=== PATIENT | male | born 1955 | race Caucasian/White ===

== ENCOUNTER 2020-09-02 08:00 | Outpatient (RCR) | payer MEDICARE, SELFPAY | END 2020-09-04 15:00 | disposition home or self-care (01) | LOC: PT.CARL 08:00 | PROVIDERS: Visit Provider Orthopaedic Surgery Adult Reconstructive Orthopaedic Surgery | DX: S52.125A Nondisplaced fracture of head of left radius, initial encounter for closed fracture (principal) | CPT/HCPCS: 97110; 97140; 97163 ==

== ENCOUNTER → 2023-07-06 16:44 | Outpatient (CLI) | payer MEDICARE, SELFPAY ==
[2023-07-06 16:40] LABS: Basophils # 0.1 K/mm3 (0-0.2); Basophils % 1.6 % (0.1-2.0); Eosinophils # 0.2 K/mm3 (0.0-0.4); Eosinophils % 3.2 % (0.1-12.0); Hematocrit 47.7 % (42.0-52.0); Hemoglobin 16.6 g/dL (14.1-18.0); Lymphocytes # 1.7 K/mm3 (0.7-4.5); Mean Corpuscular HGB Conc 34.8 g/dL (31.8-35.4); Mean Corpuscular Hemoglobin 33.1 pg (27.0-31.2); Mean Corpuscular Volume 94.9 fl (80-94); Mean Platelet Volume 9.5 fl (7.4-10.4); Monocytes # 0.6 K/mm3 (0.1-1.0); Monocytes % 8.5 % (1.7-9.3); Neutrophils # 4.4 K/mm3 (1.8-7.8); Neutrophils % 62.7 % (37.0-80.0); Platelet Count 299 K/mm3 (142-424); Red Blood Count 5.02 M/mm3 (4.60-6.20); Red Cell Distribution Width 13.4 % (11.5-17.5); White Blood Count 7.1 K/mm3 (4.8-10.8)
[2023-07-06 17:06] LABS: Alanine Aminotransferase 55 U/L (12-78); Albumin Level 4.4 g/dl (3.5-5.0); Albumin/Globulin Ratio 1.3 (1.1-1.8); Alkaline Phosphatase 84 U/L (38-126); Anion Gap 16.8 mEq/L (5-15); Aspartate Amino Transferase 54 U/L (17-59); Blood Urea Nitrogen 14 mg/dl (9-20); Calcium 9.3 mg/dl (8.4-10.2); Carbon Dioxide 25 mmol/L (22.0-30.0); Chloride 101 mmol/L (98-107); Chol/HDL Ratio 6.9 (1-3.5); Cholesterol 214 mg/dl (140-200); Estimated Glomerular Filt Rate 75 ml/min (>60); GFR (African American) 90 ML/MIN (>60); Globulin 3.3 g/dL (1.3-3.2); Glucose 115 mg/dl (74-100); HDL Cholesterol 31 mg/dl (40-60); Potassium 3.8 mmoL/L (3.5-5.1); Sodium 139 mmol/L (136-145); Total Protein,Serum 7.7 g/dl (6.3-8.2); Triglycerides 227 mg/dl (30-150); VLDL Cholesterol 45 mg/dL (0-40)
[2023-07-06 17:17] LABS: Direct LDL Cholesterol 138.61 mg/dL (100-129)
[2023-07-06 17:58] LABS: Hemoglobin A1C 6.2 % (4.0-6.0)
== END ==
PROVIDERS: PCP Family Medicine; Visit Provider Family Medicine
DX: I10 Essential (primary) hypertension (principal); E11.9 Type 2 diabetes mellitus without complications
CPT/HCPCS: 80053; 80061; 83036; 85025

== ENCOUNTER 2023-07-12 08:00 | Outpatient (RCR) | payer MEDICARE, SELFPAY ==
--- NOTE | 2023-06-13 09:03 | HMH.PTOPEV ---
PT Outpatient Evaluation Rehab PT Outpatient Evaluation Start: 06/13/23 08:02 Freq: Status: Active Protocol: Document 06/13/23 08:02 [email or web address] (Rec: 06/13/23 09:03 [email or web address] [id number]) E-signed By Rodriguez De Paz, PT Outpatient Therapy Subjective History Subjective History Pt. is a 67 year old male who presents to [facility] Outpatient Physical Therapy Services in [place] for the initial evaluation this date(06/13/23) w/ c/o acute and costant R- sided hip/RLE P!, burning, and weakness of insidious onset a week ago. Pt. reports, I just woke up and it was there. Pt. notes decreased active RLE DF secondary to muscle weakness w/ osnet of current c /o symptoms. Pt. reports having a history of generalized BLE muscle weakness since falling a few years ago, however, states symptoms have worsened w/ recent onset. Pt. reports symptoms worsen w/ prolonged standing and ambulation, reports having to take a chair to sit down to allow for symptom relief. Pt. reports, I bend over the shopping cart when I got to the grocery store secondary to symptom relief. Pt. denies having any symptom relief w/ prescribed mx. Recent diagnostic imaging indicates degenerative changes in the lumbar spine per pt. report. Pt. denies recent onset numbness/tingling into the LLE, denies saddle paresthesia, deneis any recent bowel/bladder dysfunction at this time. Current medications include Duloxetine, Leflunomide, Losartan, Pantoprazole, Tramadol PRN, Pregabalin, and Trazodone. PMH includes S/P Cholecystectomy, S/P LLE TKA, S/P RLE
== END 2023-07-18 15:22 | disposition home or self-care (01) ==
LOC: PT 08:00
PROVIDERS: PCP Family Medicine; Visit Provider Nurse Practitioner Family
DX: M54.30 Sciatica, unspecified side (principal); M54.31 Sciatica, right side
CPT/HCPCS: 97010; 97012; 97014; 97110; 97140; 97163; G0283

== ENCOUNTER 2023-10-06 19:22 | Outpatient (CLI) | payer MEDICARE, SELFPAY ==
[2023-10-06 16:49] LABS: Basophils # 0.1 K/mm3 (0-0.2); Basophils % 0.9 % (0.1-2.0); Eosinophils # 0.4 K/mm3 (0.0-0.4); Eosinophils % 5.6 % (0.1-12.0); Hematocrit 48.4 % (42.0-52.0); Hemoglobin 16.6 g/dL (14.1-18.0); Lymphocytes # 1.9 K/mm3 (0.7-4.5); Lymphocytes % 29.4 % (10-50); Mean Corpuscular HGB Conc 34.2 g/dL (31.8-35.4); Mean Corpuscular Hemoglobin 32.7 pg (27.0-31.2); Mean Corpuscular Volume 95.7 fl (80-94); Mean Platelet Volume 9.3 fl (7.4-10.4); Monocytes # 0.7 K/mm3 (0.1-1.0); Monocytes % 10.3 % (1.7-9.3); Neutrophils # 3.5 K/mm3 (1.8-7.8); Neutrophils % 53.9 % (37.0-80.0); Platelet Count 309 K/mm3 (142-424); Red Blood Count 5.06 M/mm3 (4.60-6.20); Red Cell Distribution Width 13.9 % (11.5-17.5); White Blood Count 6.6 K/mm3 (4.8-10.8)
[2023-10-06 16:57] LABS: Alanine Aminotransferase 73 U/L (12-78); Albumin Level 4.2 g/dl (3.5-5.0); Albumin/Globulin Ratio 1.3 (1.1-1.8); Alkaline Phosphatase 113 U/L (38-126); Anion Gap 11.9 mEq/L (5-15); Aspartate Amino Transferase 57 U/L (17-59); Blood Urea Nitrogen 13 mg/dl (9-20); Calcium 9.7 mg/dl (8.4-10.2); Carbon Dioxide 26 mmol/L (22.0-30.0); Chloride 105 mmol/L (98-107); Chol/HDL Ratio 7.7 (1-3.5); Cholesterol 255 mg/dl (140-200); Estimated Glomerular Filt Rate 75 ml/min (>60); GFR (African American) 90 ML/MIN (>60); Globulin 3.3 g/dL (1.3-3.2); Glucose 119 mg/dl (74-100); HDL Cholesterol 33 mg/dl (40-60); Potassium 3.9 mmoL/L (3.5-5.1); Sodium 139 mmol/L (136-145); Total Protein,Serum 7.5 g/dl (6.3-8.2); Triglycerides 256 mg/dl (30-150); VLDL Cholesterol 51 mg/dL (0-40)
[2023-10-06 17:08] LABS: Direct LDL Cholesterol 159.79 mg/dL (100-129)
[2023-10-06 17:27] LABS: Prostate Specific Ag Screen 0.2 ng/ml (0.0-4.0); Thyroid Stimulating Hormone 3.28 uIU/mL (0.465-4.68)
[2023-10-06 18:53] LABS: Hemoglobin A1C 6.1 % (4.0-6.0)
== END 2023-10-06 23:59 ==
LOC: LAB.DROPOF 19:23
PROVIDERS: PCP Family Medicine; Visit Provider Family Medicine
DX: Z12.5 Encounter for screening for malignant neoplasm of prostate (principal); I10 Essential (primary) hypertension; R73.03 Prediabetes; Z79.899 Other long term (current) drug therapy
CPT/HCPCS: 80053; 80061; 83036; 84436; 84443; 85025; G0103

== ENCOUNTER 2023-12-05 16:17 | Outpatient (CLI) | payer MEDICARE, SELFPAY ==
--- NOTE | 2023-12-05 16:18 | MR_ITS ---
FINAL REPORT CLINICAL HISTORY: low back pain. BILATERAL LEG PAIN, NUMBNESS AND TINGLING. NO INJURY OR TRAUMA FINDINGS: Multiplanar MR imaging of the lumbar spine was performed without contrast. On the sagittal T2-weighted images, there is abnormal decreased signal throughout the lumbar discs. The vertebrae are of normal height. There is minimal spondylolisthesis of L5 on S1. L1-2: Mild annular disc bulge is present with mild bilateral neural foraminal narrowing. L2-3: Mild annular disc bulge is present with mild bilateral neural foraminal narrowing. L3-4: Mild to moderate annular disc bulge is present. There is mild facet hypertrophy with mild to moderate bilateral neural foraminal narrowing. L4-5: Mild to moderate annular disc bulge is present. There is bilateral facet hypertrophy. There is moderate to high-grade left and moderate right neural foraminal narrowing. L5-S1: Diffuse disc bulge is present accentuated by spondylolisthesis. There is high-grade right and moderate left neural foraminal narrowing. IMPRESSION: Multilevel degenerative disc disease with neural foraminal compromise, most evident on the left at L4-5 and on the right at L5-S1. Reviewed, Interpreted and Dictated by Ramon Ryan MD Transcribed by Liza Martin Authenticated and [facility]
== END 2023-12-05 23:59 | disposition home or self-care (01) ==
LOC: RAD 16:18
PROVIDERS: PCP Family Medicine; Visit Provider Family Medicine
DX: M54.50 Low back pain, unspecified (principal); G62.9 Polyneuropathy, unspecified
CPT/HCPCS: 72148; 76376

== ENCOUNTER 2024-01-09 08:00 | Outpatient (RCR) | payer MEDICARE, SELFPAY ==
--- NOTE | 2023-12-12 08:48 | HMH.PTOPEV ---
PT Outpatient Evaluation Rehab PT Outpatient Evaluation Start: 12/12/23 07:58 Freq: Status: Active Protocol: Document 12/12/23 07:58 ROBIN (Rec: 12/12/23 08:48 [email or web address] [id number]) E-signed By Rodriguez De Paz, PT Outpatient Therapy Subjective History Subjective History Pt. is a 68 year old male who presents to [facility] Outpatient Physical Therapy Services in [place] for the initial evaluation this date(12/12/23) w/ c/o chronic and constant BLE(R>L) feet and leg P!, numbness, and burning of insidious onset 6 years ago. Pt. reports initial onset of BLE numbness and weakness 6 years ago of insidious onset while working at [employer]. Pt. reports his BLEs would go numb and give out from underneath him and couldn 't walk. However, pt. reports this would last a few days and then go away. Pt. reports having this onset every year of insidious onset, but state symptoms would improve in a few day. Recent diagnostic imaging positive for multi- level disc bulges per pt. report. Pt. denies having injections for current complaint. Pt. reports not having symptom relief w/ Prednisone. Current medications include Duloxetine, Leflunomide, Losartan, Pantoprazole, Tramadol PRN, Pregabalin, Hydroxyzine HCL, Nabumentone, and Trazodone. PMH includes S/ P Cholecystectomy, S/P LLE TKA , S/P RLE Bunionectomy, HTN, DVT, OA, Gout, and mild acid reflux. [ End ] New diagnosis of cancer in past 12 No months? Chief Complaint Pain,Stiff,Swelling,Gives out/ Unstable,Paresthesia,Weakness Symptom Type Ache,Throb,Dull,Burning, Numbness,Shooting Symptoms Relieved By Rest/Positioning,Brace/Support Symptoms Aggravated By Standing,Bending/Stooping, Walking,Lifting Prior Functional Limitations None Current Functional Limitations Lifting,Standing,Recreation Activity,Walking,Bending/ Stooping Symptom Description Constant but Variable, Intermittent,Activity Dependent Level of pain today (0-10) 5 Pain scale - at its best (0-10) 0 Pain scale - at its worst (0-10) 10 Lumbopelvic Eval Posture Thoracic Spine Posture Standing Position Neutral Lumbar Spine Posture Standing Position Neutral Assistive device Assistive Devices None / NA Gait Observation General Gait Pattern Observation No Deviations/Normal Palapation tenderness bilateral lumbar spinal tenderness Yes: L4/L5/S1 paraspinal tenderness No buttock tenderness No Lumbar/Sacral Palpation Overall Comment grade 3 +TTP to assessment above Accessory Movement L-spine Vertebrae Accessory Movements Central P/A [place],Right P/A that Elicit Symptoms Ke[place] L4 right L5 right S1 right Range of Motion Lumbar Spine Active Flexion Range of 75 Motion (degrees) Lumbar Spine Active Extension Range of 14 Motion (degrees) Left Lumbar Spine Lateral Flexion Active 24 Range of Motion (degrees) Right Lumbar Spine Lateral Flexion 14 Active Range of Motion (degrees) Lumbar Spine ROM Limitations Soft Tissue Tightness,Pain Manual Muscle Test Left Knee Extension Strength Grade 4 Good Knee Flexion Strength Grade 4 Good Hip Flexion Strength Grade 4 Good Hip Abduction Strength Grade 4 Good Hip Adduction Strength Grade 4 Good Hip External Rotation Strength Grade 4 Good Hip Internal Rotation Strength Grade 4 Good Hip Extension Strength Grade 4 Good Gluteus Pablo Strength Grade 4 Good Extensor Hallucis Longus Strength Grade 4 Good Ankle Dorsiflexion Strength Grade 4 Good Gastronemius/Soleus Strength Grade 4 Good Right Knee Extension Strength Grade 4 Good Knee Flexion Strength Grade 4- Good- Hip Flexion Strength Grade 4 Good Hip Abduction Strength Grade 4 Good Hip Adduction Strength Grade 4 Good Hip External Rotation Strength Grade 4 Good Hip Internal Rotation Strength Grade 4 Good Hip Extension Strength Grade 4 Good Gluteus Pablo Strength Grade 4 Good Extensor Hallucis Longus Strength Grade 3+ Fair+ Ankle Dorsiflexion Strength Grade 3+ Fair+ Gastronemius/Soleus Strength Grade 4 Good DTR Rt Patellar 2+ Lt Patellar 2+ Rt Gastroc/Soleus 0 Lt Gastroc/Soleus 0 Altered Sensation Right LE Dermatome Level L1,L5,S1 Comment decreased light touch sensation in above patterns of RLE compared to LLE Special Tests Lumbar Spine Screen Positive Sciatic Nerve Tension Test Positive Right Hip 90-90 Straight Leg Raise Test Positive Right Lumbar Long [place] Distraction Test/Manual Positive Traction Outpatient Therapy Assessment Impairments Problems/Impairmments Palpation Tenderness,Impaired Range of Motion,Impaired Strength,Impaired Walking, Impaired Standing,Impaired Lifting,Impaired Household Care,Impaired Incline Stepping ,Impaired Stepping on Uneven Surface,Impaired Recreational Activities,Impaired Work Activities,Increased Edema, Subjective C/O Pain,Impaired Self Care/Self Management Prognosis Rehab Potential Good Comment w/ HEP compliancy Clinical Impression Consistent with Diagnosis Yes Consistent with Lumbar Radiculopathy, R>L Short Term Goals Number of Weeks 2 Decreased Palpation Tenderness Yes: grade 1-2 +TTP to TTP assessment above Decrease Subjective C/O Pain Yes: worse:12/29 Patient to be Ind w/ HEP Yes Financial Data Analyst Goals Number of Weeks 4-6 Decreased Palpation Tenderness Yes: grade 1 +TTP to TTP assessment above Increase Range of Motion Yes: lumbar AROM WFL grossly Increase Strength Yes: 4+ to 5/5 RLE ankle/ft. myotomal muscle strength Increase Ability to Walk Yes Increase Ability to Stand Yes Improve Ability For Household Care Yes: improved ability w/ sweeping/mopping floor Improve Incline Stepping Ability Yes Improve Ability to Step on Uneven Yes Surfaces Improve Oswestry Score Yes Decrease Subjective C/O Pain Yes: worse:-10/29 Improve Self Care/Self Management Yes Patient to be Ind w/ Advanced HEP Yes Outpatient Therapy Plan of Care Treatment Plan May Include Therapeutic Exercise Including Home Yes Exercise Program Manual Therapy Techniques Yes Neuromuscular Re-education Yes Therapeutic Activities to Return to Yes Previous Functional/Work Level ADL/Self Care Education Yes Mechanical Traction Yes Dry Needling Yes Thermal Modalities Yes Electrical Stimulation Yes Ultrasound/Phonophoresis Yes Iontophoresis Yes Vasopneumatic Compression Pump Yes Massage Yes Eval/Re-Eval Yes Frequency Times per week 2 Duration Number of Weeks 4-6 Addendums This patient is a candidate for social No or vocational rehab? Patient/Guardian verbally acknowledges Yes understanding of treatment program and consents to further treatment? Patient/Guardian verbally acknowledges Yes understanding of diagnosis, prognosis and goals for treatment? Eval Complexity PT Charges 20796 - Low Complexity Shoulder/Elbow Eval Shoulder Objective Measurements Elbow Objective Measurements PHYSICIAN CERTIFICATION: I certify the specified therapy services for Giovanny Dumont are required, authorized, and reviewed every 30 days.
== END 2024-01-10 18:00 | disposition home or self-care (01) ==
LOC: PT 08:00
PROVIDERS: Visit Provider Family Medicine
DX: M54.50 Low back pain, unspecified (principal); G62.9 Polyneuropathy, unspecified
CPT/HCPCS: 97010; 97012; 97014; 97110; 97140; 97163; G0283

== ENCOUNTER 2024-08-01 08:00 | Outpatient (RCR) | payer MEDICARE, SELFPAY ==
--- NOTE | 2024-06-28 11:51 | HMH.PTOPWND ---
Rehab Outpt Wound Evaluation Rehab OP Wound Evaluation Start: 06/28/24 07:51 Freq: Status: Active Protocol: Document 06/28/24 11:40 LATISHA (Rec: 06/28/24 11:51 [email or web address] [id number]) E-signed By Tico Carrillo, PT Subjective/History History History This is the initial PT eval for Giovanny Dumont, 68 yowm who presents with c/o B lower leg edema increased for ~ 4 yrs overall. He reports edema is significantly worse at the end of the day and decreased in the am after sleeping with his legs elevated. He reports pain is increased with B lower legs also worse with increased edema. He has hx of DVT in B LE, R bunionectomy, L TKA, HTN, CCY. He also reports a general and sudden onset of weakness throughout his body beginning at the same time. Subjective Subjective Pain currently 5/10 in B lower legs, at worst it is 9/10. B LE neuropathy from the ankle distally tested with 19g monofilament. 2+ pitting edema to B lower legs. Minimal erythema noted to B lower legs . 2/4 TTP in B LE gaiter areas . New diagnosis of cancer in past 12 No months? Lymphedema Eval Classification of Lymphedema Secondary Lymphedema Yes Stemmer's sign Stemmer's Sign yes Stage of Lymphedema Lymphedema stages Stage I (Pitting edema, reduces w/ elevation, no fibrosis) Skin Changes Dry Skin Yes Redness Yes Discoloration of Skin Yes Other Changes Yes Pain Scale Pain Scale (0-10) 9 Affected Extremities Areas Affected by Lymphedema/Edema Right Lower Extremity,Left Lower Extremity Lower Extremity Measurements Right MTP Measurement (cm) 26.6 Heel Measurement (cm) 38.5 10 cm Proximal to Lateral Malleoli 31.9 Measurement (cm) 20 cm Proximal to Lateral Malleoli 41.2 Measurement (cm) 30 cm Proximal to Lateral Malleoli 47.7 Measurement (cm) 40 cm Proximal to Lateral Malleoli 45.9 Measurement (cm) 50 cm Proximal to Lateral Malleoli 0 Measurement (cm) 60 cm Proximal to Lateral Malleoli 0 Measurement (cm) Lower Extremity Measurement Total (cm) 231.8 Left MTP Measurement (cm) 26.5 Heel Measurement (cm) 37.6 10 cm Proximal to Lateral Malleoli 31.2 Measurement (cm) 20 cm Proximal to Lateral Malleoli 38.8 Measurement (cm) 30 cm Proximal to Lateral Malleoli 47.0 Measurement (cm) 40 cm Proximal to Lateral Malleoli 44.8 Measurement (cm) 50 cm Proximal to Lateral Malleoli 0 Measurement (cm) 60 cm Proximal to Lateral Malleoli 0 Measurement (cm) Lower Extremity Measurement Total (cm) 225.9 Manual Lymphatic Drainage Treatment Area MLD Treatment Area Right Lower Extremity,Left Lower Extremity Wound Problems/Impairments Impairments Problems/Impairmments Palpation Tenderness,Increased Edema,Lymphedema Present, Subjective C/O Pain,Impaired Self Care/Self Management Prognosis Rehab Potential Good Comment Skilled therapy is indicated to reduce overall edema burden and return pt to PLOF. Clinical Impression Consistent with Diagnosis Yes Short Term Goals Number of Weeks 2 Decreased Palpation Tenderness Yes: 1/4 B lower legs Decrease Edema Yes: 1+ pitting edema to B lower legs Decrease Subjective C/O Pain Yes: 7/10 at worst B lower legs Patient to Understand Lymphedema Yes Treatment and Exercises Decrease Girth Measurments by (cm) Yes: B LE total by 5 cm ea Prison Goals Number of Weeks 4 Decreased Palpation Tenderness Yes: 0/4 B lower legs Decrease Edema Yes: no pitting edema to B lower legs Decrease Subjective C/O Pain Yes: 4/10 at worst B lower legs Patient to be Ind w/ HEP Yes Patient to be Ind w/ [place] Yes Compression Garments Patient to Adhere Lymphedema Precautions Yes Decrease Girth Measurments by (cm) Yes: B LE total by 15 cm ea Outpatient Therapy Plan of Care Treatment Plan May Include Therapeutic Exercise Including Home Yes Exercise Program Manual Therapy Techniques Yes Neuromuscular Re-education Yes Therapeutic Activities to Return to Yes Previous Functional/Work Level ADL/Self Care Education Yes Orthotics/Bracing/Splinting Yes Vasopneumatic Compression Pump Yes Manual Lymphatic Drainage Yes Eval/Re-Eval Yes Frequency Times per week 2 Duration Number of Weeks 4 Addendums This patient is a candidate for social No or vocational rehab? Patient/Guardian verbally acknowledges Yes understanding of treatment program and consents to further treatment? Patient/Guardian verbally acknowledges Yes understanding of diagnosis, prognosis and goals for treatment? Eval Complexity PT Charges 51507 - High Complexity PHYSICIAN CERTIFICATION: I certify the specified therapy services for Giovanny Dumont are required, authorized, and reviewed every 30 days.
--- NOTE | 2024-07-24 09:05 | HMH.RHREAS ---
Rehab Reassessment Rehab OP Re-assessment Start: 06/28/24 07:51 Freq: Status: Active Protocol: Document 07/24/24 09:00 LATISHA (Rec: 07/24/24 09:04 LATISHA [id number]) E-signed By Tico Carrillo, PT Rehab Re-assessment Subjective Subjective Pt reports 6/10 pain in B Lower Legs at worst. He states , I feel really good after I come here for treatment for a day or two, but it gets a little worse after that. He just received his compression garments for home use. Objective Objective Notes Circumferential Measurements: R LE total is 225.3 cm which is -6.5 cm since IE. L LE total is 217.6 cm which is -8.3 cm since IE. Edema: 1+ pitting edema to B lower legs Pain: at worst is 6/10 in B lower legs. TTP: 1/4 B lower legs. Assessment Progress Assessment Progressing as Expected Assessment Notes Pt has shown significant reduction of overall edema based on circumferential measurements as noted. He does continue to have pitting edema and pain. Skilled therapy remains indicate to reduce overall edema burden to return pt to PLOF. Patient goals met ST/5 LT/7 Plan Plan Continue per initial POC. Frequency of Therapy 1-2 x/wk Duration of therapy 3-4 wks Time and Billing Re-Eval Time 10 Re-Eval Billing Units 0 Charge for PT reassessment? No PHYSICIAN CERTIFICATION: I certify the specified therapy services for Giovanny Dumont are required, authorized, and reviewed every 30 days.
== END 2024-08-01 23:59 | disposition home or self-care (01) ==
LOC: PT 08:00
PROVIDERS: Visit Provider Family Medicine
DX: R60.0 Localized edema (principal)
CPT/HCPCS: 97140; 97163

== ENCOUNTER 2024-09-26 09:54 | Outpatient (CLI) | payer MEDICARE, SELFPAY ==
--- NOTE | 2024-09-26 09:57 | XR_ITS ---
FINAL REPORT CLINICAL HISTORY: low back pain numbness, right sided radiates to hip FINDINGS: LUMBAR SPINE Three views were obtained. There is no acute fracture. There is grade 1 spondylolisthesis of L5 on S1 with moderate vascular disc phenomenon at this level. There is mild to advanced facet hypertrophy in the lower lumbar spine with probable underlying pars defect of L5. There are mild hypertrophic changes at L1-2 and L3-4. IMPRESSION: Mild level degenerative changes as above. Reviewed, Interpreted and Dictated by Ramon Ryan MD Transcribed by Liza Martin Authenticated and [facility]
[2024-09-26 16:15] LABS: Basophils # 0.2 K/mm3 (0-0.2); Basophils % 2.1 % (0.1-2.0); Eosinophils # 0.3 K/mm3 (0.0-0.4); Eosinophils % 4.2 % (0.1-12.0); Hematocrit 43.9 % (42.0-52.0); Hemoglobin 14.7 g/dL (14.1-18.0); Lymphocytes # 2.1 K/mm3 (0.7-4.5); Mean Corpuscular HGB Conc 33.5 g/dL (31.8-35.4); Mean Corpuscular Hemoglobin 33.1 pg (27.0-31.2); Mean Corpuscular Volume 98.9 fl (80-94); Mean Platelet Volume 10.8 fl (7.4-10.4); Monocytes # 0.9 K/mm3 (0.1-1.0); Monocytes % 10.8 % (1.7-9.3); Neutrophils # 4.5 K/mm3 (1.8-7.8); Neutrophils % 55.1 % (37.0-80.0); Platelet Count 309 K/mm3 (142-424); Red Blood Count 4.44 M/mm3 (4.60-6.20); Red Cell Distribution Width 13.7 % (11.5-17.5); White Blood Count 8.2 K/mm3 (4.8-10.8)
[2024-09-26 16:53] LABS: Alanine Aminotransferase 45 U/L (12-78); Albumin Level 4.7 g/dl (3.5-5.0); Albumin/Globulin Ratio 1.5 (1.1-1.8); Alkaline Phosphatase 103 U/L (38-126); Anion Gap 16.5 mEq/L (5-15); Aspartate Amino Transferase 41 U/L (17-59); Bilirubin,Total 0.8 mg/dl (0.2-1.3); Blood Urea Nitrogen 25 mg/dl (9-20); Calcium 9.5 mg/dl (8.4-10.2); Carbon Dioxide 23 mmol/L (22.0-30.0); Chloride 105 mmol/L (98-107); Estimated Glomerular Filt Rate 67 ml/min (>60); GFR (African American) 81 ML/MIN (>60); Globulin 3.1 g/dL (1.3-3.2); Glucose 113 mg/dl (74-100); Potassium 4.5 mmoL/L (3.5-5.1); Sodium 140 mmol/L (136-145); Total Protein,Serum 7.8 g/dl (6.3-8.2)
== END 2024-09-26 23:59 | disposition home or self-care (01) ==
LOC: RAD 09:55
PROVIDERS: PCP Family Medicine; Visit Provider Family Medicine
DX: M54.50 Low back pain, unspecified (principal); R60.9 Edema, unspecified
CPT/HCPCS: 72100; 80053; 85025

== ENCOUNTER 2024-12-28 09:42 | Outpatient (CLI) | payer MEDICARE, SELFPAY ==
[2024-12-28 10:34] LABS: Erythrocyte Sedimentation Rate 27 mm/hr (0-20)
[2024-12-28 10:36] LABS: Creatine Kinase 135 U/L (55-170)
[2024-12-28 11:26] LABS: Vitamin B12 613 pg/mL (239-931)
[2024-12-28 11:45] LABS: Folate > 20.00 ng/mL
[2024-12-28 12:12] LABS: Hemoglobin A1C 5.8 % (4.0-6.0)
[2024-12-31 14:17] LABS: Aldolase 6.5 U/L (3.3-10.3); Anti-Centromere B Antibodies <0.2 AI (0.0-0.9); Anti-DNA (DS) Ab Qn 3 IU/mL (0-9); Anti-Jo-1 <0.2 AI (0.0-0.9); Anti-Smith Antibody <0.2 AI (0.0-0.9); Antichromatin Antibodies 1.1 AI (0.0-0.9); Antiscleroderma-70 Antibodies <0.2 AI (0.0-0.9); RNP Antibodies 0.2 AI (0.0-0.9); Sjogren's Anti-SS-A <0.2 AI (0.0-0.9); Sjogren's Anti-SS-B <0.2 AI (0.0-0.9)
[2025-01-08 10:23] LABS: AChR Binding Abs 0.56 nmol/L (0.00-0.24); AChR Blocking Abs 20 % (0-25); AChR Modulating Ab 12 % (0-45)
== END 2024-12-28 23:59 | disposition home or self-care (01) ==
LOC: LAB 09:42
PROVIDERS: PCP Family Medicine; Visit Provider Specialist
DX: M62.81 Muscle weakness (generalized) (principal); M79.604 Pain in right leg; M79.605 Pain in left leg; G47.33 Obstructive sleep apnea (adult) (pediatric); R20.0 Anesthesia of skin; G62.9 Polyneuropathy, unspecified; R73.03 Prediabetes
CPT/HCPCS: 36415; 82085; 82550; 82607; 82746; 83036; 83519; 85651; 86225; 86235; 86255

== ENCOUNTER 2025-01-01 08:12 | Outpatient (CLI) | payer MEDICARE, SELFPAY ==
--- OUTSIDE RECORDS SUMMARY | 2025-01-01 08:15 | XMS_ITS | Data Portability ---
Author Organization [place] - [facility] - [facility] ADMIN Address [address] [place] [id number] Assessment Encounter Date Assessment Date Assessment LastModified by Organization Details LastModified Time 05/31/2022 05/31/2022 The patient presents to the clinic today 2 weeks s/p an left ankle injection reporting short-term benefit of 1 week. The patient continues to complain of Bilateral Foot pain with numbness/tingling sensations associated with peripheral neuropathy. Because the patients pain is not well controlled with taking Gabapentin at the current regimen, I will increase the dose today from 800 mg TID to 600 mg 2 tablets three times a day for 3 months. The patient will return to the office in 3 months for a medication refill. MEDICATION: Increase Gabapentin 600 mg take 2 tablets TID for 1 month #180, 2 refills [email or web address] Not available 06/01/2022 07:23:27 08/25/2022 08/25/2022 Telehealth visit is being conducted from [address] [place] [address]. This was a real-time clinical encounter over [[email or web address] ]. Consent was obtained to engage in telemedicine service. Greater than 50% of the time spent was devoted to counseling and coordinating care including review of records, pertinent lab data and studies as well as discussing diagnostic evaluation and workup, plan therapeutic interventions and future disposition of care. This included any additional research needed to obtain further information in formulating the plan of care for this patient. This includes counseling with the patient about their disease and diagnosis, specifically as below. Patient was also counseled on the precaution of COVID-19 including importance of hand washing and social distancing. WE SPECIFICALLY DISCUSSED RISK FACTORS FOR COVID-19, INCLUDING AGE>60, HEART OR LUNG DISEASE, DIABETES, IMMUNOSUPPRESSION, AND TRAVEL. WE ALSO DISCUSSED THAT NSAIDS MAY WORSEN COVID-19 INFECTION SYMPTOMS AND THAT THEY SHOULD NOT BE USED TO TREAT COVID-19 SYMPTOMS. PATIENT WAS ALSO INFORMED THAT CORTICOSTEROIDS IN ANY FORM (ORAL OR INJECTABLE) WILL DECREASE IMMUNE RESPONSE AND MAY INCREASE RISK OF COVID-19 INFECTION AND SYMPTOMS. THIS ENCOUNTER WAS PERFORMED A TELEMEDICINE VISIT VIA SECURE TWO-WAY VIDEO AND AUDIO TO MINIMIZE RISK AND TRANSMISSION OF COVID-19. THE PATIENT AND WE UNDERSTAND THE LIMITATIONS OF A TELEMEDICINE VISIT INCLUDING INABILITY TO CHECK REFLEXES, POSSIBLY MISSING SUBTLE FINDINGS ON PHYSICAL EXAM. ALTERNATIVE OPTIONS WERE PRESENTED TO THE PATIENT AND THE PATIENT ELECTED TO PROCEED WITH THE VISIT. The patient presents via televideo for medication refill. As the current medication is managing pain and well-tolerated, allowing him to remain functional, I will continue. Medication refill will not be conducted today as the patient has recently picked up medication on 08/23 with an additional refill at the pharmacy when needed. The patient continues to complain of bilateral foot pain with numbness/tingling sensations, likely associated with peripheral neuropathy, as evidenced by history and physical exam. To address the patient's pain: I believe the patient would be a good candidate for SCS therapy to manage his chronic neuropathic pain. The patient's pain has been refractory to physical therapy, medication regimen, and injections. I will discuss SCS therapy at follow up with the patient in person. - No medication refill today as patient has medication available until 10/19 - Possible SCS candidate - will discuss at follow up - Follow up in 2 months for medication refill and to discuss treatment plan [email or web address] Not available 08/25/2022 15:54:24 10/11/2022 10/11/2022 The patient presents to the clinic today for a medication refill. Of note, the patient recently stopped Gabapentin, as he was uncertain regarding efficacy. The patient denies withdrawal symptoms. The patient continues to complain of multiple joint pain likely associated with osteoarthritis and gout, as evidenced by history and physical exam. The patient is following with rheumatology, whom is prescribing oral steroids. The patient would like to hold off on interventional treatment, as rheumatology is investigating etiology/mechanism of disease. The patient also complains of numbness/tingling of the BLE. Based on the history and physical exam it appears that the pain is associated with neuropathy. I think the patient may be a good candidate for neuromodulation, specifically SCS therapy, as their pain has been refractory to conservative, pharmacologic, and interventional approaches. I will follow up in 6-8 weeks to discuss the treatment plan. [email or web address] Not available 10/14/2022 12:44:53 Plan of Treatment Reminders Order Date Submit Date Provider Last Modified By Organization Details Last Modified Time Details Appointments None recorded. Lab unlisted lab - systemic lupus profile A 2021 [facility], [address], [address], [place], [address], 12:10:07 unlisted lab - systemic lupus profile B 2021 [facility], [address], [address], [place], [address], 12:10:08 JANESSA (antinucle ar antibodies ) screen, serum 2021 [email or web address], [address], [address], [place], [address], 08:52:27 lipid panel, serum 2021 [facility], [address], [place], [address], 03:06:31 TSH, ultra-sens itive, serum 2021 [facility], [address], [place], [address], 03:06:32 vitamin B12 + folate, serum or blood 2021 [facility], [address], [place], [address], 03:06:32 HbA1c (hemoglobi n A1c), blood 2021 [facility], [address], [place], [address], 2 03:06:32 CBC w/ auto diff 2021 [facility], [address], [address], [place], [address], 2 03:06:30 CMP, serum or plasma 2021 [facility], [address], [address], [place], [address], 2 03:06:31 C reactive protein, QN, serum or plasma 2021 [facility], [address], [address], [place], [address], 03:06:35 ESR (erythrocy te sedimentat ion rate), blood 2021 [facility], [address], [address], [place], [address], 2 03:06:35 JANESSA (antinucle ar antibodies ) screen, serum 2021 [facility], [address], [address], [place], [address], 03:06:34 rf (rheumatoi d factor) iga, serum 2021 [facility], [address], [address], [place], [address], 2 03:06:34 uric acid, serum or plasma 2021 [facility], [address], [address], [place], [address], 03:06:34 ccp (cyclic citrullina calin peptide) iga+igg, serum 2021 [facility], [address] [facility] [address], [place], [address], 03:06:33 Referral None recorded. Procedures None recorded. Surgeries None recorded. [email or web address] [address], [place], [address], 11:10:19 Medication Orders neomycin-p olymyxin-h ydrocort 3.5 mg-10,000 unit/mL-1 % ear drops,susp 2021 [id number], [address], [place], [place], [id number], 2 08:16:50 amoxicilli n 875 mg-potassi um clavulanat e 125 mg tablet 2021 [facility], [address], [place], [place], [id number], 2 08:16:51 triamcinol one acetonide 0.1 % topical cream 2021 [facility] #49414, [address] [place], [place], [id number], 2 08:16:51 gabapentin 600 mg tablet 2021 [facility]73, [address] [place], [place], [id number], 14:47:53 Patient TargetsNo targets recorded. Patient InstructionsNo instructions recorded. Reason for Referral None Reported. Results Created Date Observation Date Name Description Value Unit Range Abnormal Flag Note LastModifiedBy Organization Detail LastModifiedTime 06/02/2006/03/2022 CBC WITH DIFFE RENTI AL/PL ATELE T WBC 9.4 x10e3 /uL 3.4-10 .8 Not Available [facility] ([facility]) [address] [facility] [address], [place], [address], 06/14/2022 03:06:30 06/02/20 22 06/03/2022 CBC WITH DIFFE RENTI AL/PL ATELE T RBC 4.57 x10e6 /uL 4.14-5 .80 Not Available [facility] ([facility]) [address] [facility] [address], [place], [address], 06/14/2022 03:06:30 06/02/2006/03/2022 CBC WITH DIFFE RENTI AL/PL ATELE T hemoglobin 14.9 g/dL 13.0-1 7.7 Not Available [facility] ([facility]) [address] [facility], [place], [address], 06/14/2022 03:06:30 06/02/2006/03/2022 CBC WITH DIFFE RENTI AL/PL ATELE T hematocrit 43.4 % 37.5-5 1.0 Not Available [facility] ([facility]) [address] [facility], [place], [address], 06/14/2022 03:06:30 06/02/2006/03/2022 CBC WITH DIFFE RENTI AL/PL ATELE T MCV 95 fL 79-97 Not Available [facility] ([facility]) [address] [place], [address], 06/14/2022 03:06:30 06/02/2006/03/2022 CBC WITH DIFFE RENTI AL/PL ATELE T MCH 32.6 pg 26.6-3 3.0 Not Available [facility] ([facility]) [address] [place], [address], 06/14/2022 03:06:30 06/02/2006/03/2022 CBC WITH DIFFE RENTI AL/PL ATELE T MCHC 34.3 g/dL 31.5-3 5.7 Not Available [facility] ([facility]) [address] [facility], [place], [address], 06/14/2022 03:06:30 06/02/20 22 06/03/2022 CBC WITH DIFFE RENTI AL/PL ATELE T RDW 13.0 % 11.6-1 5.4 Not Available [facility] ([facility]) [address] [facility], [place], [address], 06/14/2022 03:06:30 06/02/2006/03/2022 CBC WITH DIFFE RENTI AL/PL ATELE T platelets 308 x10e3 /uL 150-45 0 Not Available [facility] ([facility]) [address] [facility], [place], [address], 06/14/2022 03:06:30 06/02/20 22 06/03/2022 CBC WITH DIFFE RENTI AL/PL ATELE T neutrophils 59 % not estab. Not Available [facility] ([facility]) [address] [facility], [place], [address], 06/14/2022 03:06:30 06/02/20 22 06/03/2022 CBC WITH DIFFE RENTI AL/PL ATELE T lymphs 23 % not estab. Not Available [facility] ([facility]) [address] [facility], [place], [address], 06/14/2022 03:06:30 06/02/20 22 06/03/2022 CBC WITH DIFFE RENTI AL/PL ATELE T monocytes 11 % not estab. Not Available [facility] ([facility]) [address] [facility], [place], [address], 06/14/2022 03:06:30 06/02/20 22 06/03/2022 CBC WITH DIFFE RENTI AL/PL ATELE T eos 4 % not estab. Not Available [facility] ([facility]) [address] [facility], [place], [address], 06/14/2022 03:06:30 06/02/20 22 06/03/2022 CBC WITH DIFFE RENTI AL/PL ATELE T basos 1 % not estab. Not Available [facility] ([facility]) [address] [facility], [place], [address], 06/14/2022 03:06:30 06/02/20 22 06/03/2022 CBC WITH DIFFE RENTI AL/PL ATELE T immature cells PUBLIC MESSAGE SERVICE SUPERVISOR Not Available [facility] ([facility]) [address] [place], [address], 06/14/2022 03:06:30 06/02/20 22 06/03/2022 CBC WITH DIFFE RENTI AL/PL ATELE T neutrophils (absolute) 5.6 x10e3 /uL 1.4-7. 0 Not Available [facility] ([facility]) [address] [place], [address], 06/14/2022 03:06:30 06/02/20 22 06/03/2022 CBC WITH DIFFE RENTI AL/PL ATELE T lymphs (absolute) 2.2 x10e3 /uL 0.7-3. 1 Not Available [facility] ([facility]) [address] [place], [address], 06/14/2022 03:06:30 06/02/20 22 06/03/2022 CBC WITH DIFFE RENTI AL/PL ATELE T monocytes(ab solute) 1.0 x10e3 /uL 0.1-0. 9 above high normal Not Available [facility] ([facility]) [address] [place], [address], 06/14/2022 03:06:30 06/02/20 22 06/03/2022 CBC WITH DIFFE RENTI AL/PL ATELE T eos (absolute) 0.4 x10e3 /uL 0.0-0. 4 Not Available [facility] ([facility]) [address] [facility], [place], [address], 06/14/2022 03:06:30 06/02/20 22 06/03/2022 CBC WITH DIFFE RENTI AL/PL ATELE T baso (absolute) 0.1 x10e3 /uL 0.0-0. 2 Not Available [facility] ([facility]) [address] [facility], [place], [address], 06/14/2022 03:06:30 06/02/2006/03/2022 CBC WITH DIFFE RENTI AL/PL ATELE T immature granulocytes 2 % not estab. Not Available [facility] ([facility]) [address] [facility], [place], [address], 06/14/2022 03:06:30 06/02/2006/03/2022 CBC WITH DIFFE RENTI AL/PL ATELE T immature grans (abs) 0.2 x10e3 /uL 0.0-0. 1 above high normal (An eleva calin perce ntage of Immat ure Granu locyt es has not been found to be clini ravi signi fican t as a sole clini frankie predi ctor of disea se. Does NOT inclu de bands or blast cells . Pregn ayana assoc iated physi ologi frankie leuko cytos is may also show incre ased immat ure granu locyt es witho ut clini frankie signi fican ce.) Not Available [facility] ([facility]) [address] [facility] [address], [place], [address], 06/14/2022 03:06:30 06/02/2006/03/2022 CBC WITH DIFFE RENTI AL/PL ATELE T NRBC PUBLIC MESSAGE SERVICE SUPERVISOR Not Available [facility] ([facility]) [address] [facility], [place], [address], 06/14/2022 03:06:30 06/02/20 22 06/03/2022 CBC WITH DIFFE AYANNA AL/PL ATELE T hematology comments: PUBLIC MESSAGE SERVICE SUPERVISOR Not Available [facility] ([facility]) [address] [facility], [place], [address], 06/14/2022 03:06:30 06/02/20 22 06/03/2022 COMP. METAB OLIC PANEL (14) glucose 108 mg/dL 70-99 above high normal Ple ase note refer ence inter job ring e Not Available [facility] ([facility]) [address] [facility] [address], [place], [address], 06/14/2022 03:06:31 06/02/2006/03/2022 COMP. METAB OLIC PANEL (14) BUN 20 mg/dL 8-27 Not Available [facility] ([facility]) [address] [facility], [place], [address], 06/14/2022 03:06:31 06/02/20 22 06/03/2022 COMP. METAB OLIC PANEL (14) creatinine 1.39 mg/dL 0.76-1 .27 above high normal Not Available [facility] ([facility]) [address] [facility], [place], [address], 06/14/2022 03:06:31 06/02/20 22 06/03/2022 COMP. METAB OLIC PANEL (14) eGFR 56 mL/mi n/1.7 3 >59 below low normal Not Available [facility] ([facility]) [address] [facility], [place], [address], 06/14/2022 03:06:31 06/02/20 22 06/03/2022 COMP. METAB OLIC PANEL (14) BUN/creatini ne ratio 14 06-14 Not Available [facility] ([facility]) [address] [facility], [place], [address], 06/14/2022 03:06:31 06/02/20 22 06/03/2022 COMP. METAB OLIC PANEL (14) sodium 141 mmol/ L 134-14 4 Not Available [facility] ([facility]) [address] [facility] [place], [address], 06/14/2022 03:06:31 06/02/20 22 06/03/2022 COMP. METAB OLIC PANEL (14) potassium 4.0 mmol/ L 3.5-5. 2 Not Available [facility] ([facility]) [address] [facility] [place], [address], 06/14/2022 03:06:31 06/02/20 22 06/03/2022 COMP. METAB OLIC PANEL (14) chloride 103 mmol/ L 96-106 Not Available [facility] ([facility]) [address] [facility], [place], [address], 06/14/2022 03:06:31 06/02/20 22 06/03/2022 COMP. METAB OLIC PANEL (14) carbon dioxide, total 22 mmol/ L 20-29 Not Available [facility] ([facility]) [address] [facility] [address], [place], [address], 06/14/2022 03:06:31 06/02/20 22 06/03/2022 COMP. METAB OLIC PANEL (14) calcium 9.5 mg/dL 8.6-10 .2 Not Available [facility] ([facility]) [address] [facility] [place], [address], 06/14/2022 03:06:31 06/02/20 22 06/03/2022 COMP. METAB OLIC PANEL (14) protein, total 7.1 g/dL 6.0-8. 5 Not Available [facility] ([facility]) [address] [facility] [place], [address], 06/14/2022 03:06:31 06/02/20 22 06/03/2022 COMP. METAB OLIC PANEL (14) albumin 4.3 g/dL 3.8-4. 8 Not Available [facility] ([facility]) [address] [facility] [address], [place], [address], 06/14/2022 03:06:31 06/02/20 22 06/03/2022 COMP. METAB OLIC PANEL (14) globulin, total 2.8 g/dL 1.5-4. 5 Not Available [facility] ([facility]) [address] [facility] [address], [place], [address], 06/14/2022 03:06:31 06/02/20 22 06/03/2022 COMP. METAB OLIC PANEL (14) A/G ratio 1.5 1.2-2. 2 Not Available [facility] ([facility]) [address] [facility], [place], [address], 06/14/2022 03:06:31 06/02/20 22 06/03/2022 COMP. METAB OLIC PANEL (14) bilirubin, total 0.4 mg/dL 0.0-1. 2 Not Available [facility] ([facility]) [address] [facility], [place], [address], 06/14/2022 03:06:31 06/02/20 22 06/03/2022 COMP. METAB OLIC PANEL (14) alkaline phosphatase 87 IU/L 44-121 Not Available [facility]) [address] [facility], [place], [address], 06/14/2022 03:06:31 06/02/20 22 06/03/2022 COMP. METAB OLIC PANEL (14) AST (SGOT) 27 IU/L 0-40 Not Available [facility] ([facility]) [address] [facility], [place], [address], 06/14/2022 03:06:31 06/02/20 22 06/03/2022 COMP. METAB OLIC PANEL (14) ALT (SGPT) 34 IU/L 0-44 Not Available [facility] ([facility]) [address] [facility], [place], [address], 06/14/2022 03:06:31 06/02/20 22 06/03/2022 LIPID PANEL WITH LDL/H DL RATIO cholesterol, total 149 mg/dL 100-19 9 Not Available [facility] ([facility]) [address] [facility] [address], [place], [address], 06/14/2022 03:06:31 06/02/20 22 06/03/2022 LIPID PANEL WITH LDL/H DL RATIO triglyceride s 224 mg/dL 0-149 above high normal Not Available [facility] ([facility]) [address] [facility], [place], [address], 06/14/2022 03:06:31 06/02/20 22 06/03/2022 LIPID PANEL WITH LDL/H DL RATIO HDL cholesterol 37 mg/dL >39 below low normal Not Available [facility] ([facility]) [address] [place], [address], 06/14/2022 03:06:31 06/02/20 22 06/03/2022 LIPID PANEL WITH LDL/H DL RATIO VLDL cholesterol frankie 37 mg/dL 5-40 Not Available [facility] ([facility]) [address] [facility] [address], [place], [address], 06/14/2022 03:06:31 06/02/20 22 06/03/2022 LIPID PANEL WITH LDL/H DL RATIO LDL chol calc ([facility]) 75 mg/dL 0-99 Not Available [facility] ([facility]) [address] [facility] [address], [place], [address], 06/14/2022 03:06:31 06/02/20 22 06/03/2022 LIPID PANEL WITH LDL/H DL RATIO comment: PUBLIC MESSAGE SERVICE SUPERVISOR Not Available [facility] ([facility]) [address] [facility], [place], [address], 06/14/2022 03:06:31 06/02/20 22 06/03/2022 LIPID PANEL WITH LDL/H DL RATIO LDL/HDL ratio 2.0 ratio 0.0-3. 6 LDL/H DL Ratio Men Women 1/2 Avg.R isk 1.0 1.5 Avg.R isk 3.6 3.2 2X Avg.R isk 6.2 5.0 3X Avg.R isk 8.0 6.1 Not Available [facility] ([facility]) [address] [place], [address], 06/14/2022 03:06:31 06/02/20 22 06/03/2022 VITAM IN B12 AND FOLAT E vitamin B12 593 pg/mL 232-12 45 Not Available [facility] ([facility]) [address] [place], [address], 06/14/2022 03:06:32 06/02/2006/03/2022 VITAM IN B12 AND FOLAT E folate (folic acid), serum 8.5 NG/mL >3.0 A serum folat e patricia ntrat ion of less than 3.1 ng/mL is consi dered to repre sent clini frankie defic iency . Not Available [facility] ([facility]) [address] [place], [address], 06/14/2022 03:06:32 06/02/2006/03/2022 HEMOG LOBIN A1C hemoglobin A1C 6.4 % 4.8-5. 6 above high normal Predi abete s: 5.7 - 6.4 Diabe macario: >6.4 Glyce aj contr ol for adult s with diabe macario: <7.0 Not Available [facility] ([facility]) [address] [place], [address], 06/14/2022 03:06:32 06/02/2006/03/2022 TSH TSH 1.850 uIU/m L 0.450- 4.500 Not Available [facility] ([facility]) [address] [place], [address], 06/14/2022 03:06:32 06/02/2006/03/2022 ANTI- CCP AB, IGG/I GA anti-ccp Ab, IgG/IgA 10 units 0-19 Negat nessa <20 Weak posit nessa 20 - 39 Moder ate posit nessa 40 - 59 Stron g posit nessa >59 Not Available [facility] ([facility]) [address] [place], [address], 06/14/2022 03:06:33 06/02/2006/13/2022 RF, IGA BY EIA (RDL) rf, IgA by EIA (rdl) <7 U <7 Not Available [facility] [address], [place], [address], 06/14/2022 03:06:34 06/02/2006/03/2022 URIC ACID uric acid 9.1 mg/dL 3.8-8. 4 above high normal Gerard medina t for gout patie nts: <6.0 Not Available [facility] ([facility]) [address] [facility] [address], [place], [address], 06/14/2022 03:06:34 06/02/2006/03/2022 JANESSA W/REF NAHUM IF POSIT NESSA JANESSA direct Positi ve negati ve abnormal Not Available [facility] ([facility]) [address] [place], [address], 06/14/2022 03:06:34 06/02/2006/03/2022 JANESSA W/REF NAHUM IF POSIT NESSA anti-DNA (ds) Ab qn 4 IU/mL 0-9 Negat nessa <5 Equiv ocal 5 - 9 Posit nessa >9 Not Available [facility] ([facility]) [address] [place], [address], 06/14/2022 03:06:34 06/02/20 22 06/03/2022 JANESSA W/REF NAHUM IF POSIT NESSA outside plant field engineer antibodies <0.2 ai 0.0-0. 9 Not Available [facility] ([facility]) [address] [facility] [address], [place], [address], 06/14/2022 03:06:34 06/02/20 22 06/03/2022 JANESSA W/REF NAHUM IF POSIT NESSA silva antibodies <0.2 ai 0.0-0. 9 Not Available [facility] ([facility]) [address] [facility] [address], [place], [address], 06/14/2022 03:06:34 06/02/20 22 06/03/2022 JANESSA W/REF NAHUM IF POSIT NESSA antisclerode rma-70 antibodies <0.2 ai 0.0-0. 9 Not Available [facility] ([facility]) [address] [facility], [place], [address], 06/14/2022 03:06:34 06/02/20 22 06/03/2022 JANESSA W/REF NAHUM IF POSIT NESSA sjogren's anti-ss-A <0.2 ai 0.0-0. 9 Not Available [facility] ([facility]) [address] [place], [address], 06/14/2022 03:06:34 06/02/20 22 06/03/2022 JANESSA W/REF NAHUM IF POSIT NESSA sjogren's anti-ss-B <0.2 ai 0.0-0. 9 Not Available [facility] ([facility]) [address] [place], [address], 06/14/2022 03:06:34 06/02/20 22 06/03/2022 JANESSA W/REF NAHUM IF POSIT NESSA antichromati n antibodies 2.0 ai 0.0-0. 9 above high normal Not Available [facility] ([facility]) [address] [place], [address], 06/14/2022 03:06:34 06/02/20 22 06/03/2022 JANESSA W/REF NAHUM IF POSIT NESSA anti-jasmin-1 <0.2 ai 0.0-0. 9 Not Available [facility] ([facility]) [address] [facility] [address], [place], [address], 06/14/2022 03:06:34 06/02/20 22 06/03/2022 JANESSA W/REF NAHUM IF POSIT NESSA anti-centrom ere B antibodies <0.2 ai 0.0-0. 9 Not Available [facility] ([facility]) [address] [facility] [address], [place], [address], 06/14/2022 03:06:34 06/02/20 22 06/03/2022 JANESSA W/REF NAHUM IF POSIT NESSA see below: Fawn t [employer]oa nt[employer] dy Disea se Assoc iatio n ----- ----- ----- ----- ----- ----- ----- ----- ----- ----- ----- ----- Condi tion Frequ ency ----- ----- ----- ----- - ----- ----- ----- ----- ---- ----- ---- Antin uclea r Antib mary grace, SLE, mixed conne ctive Direc t (JANESSA- D) milvia e disea ses ----- ----- ----- ----- - ----- ----- ----- ----- ---- ----- ---- dsDNA SLE 40 - 60% ----- ----- ----- ----- - ----- ----- ----- ----- ---- ----- ---- Chrom atin Drug induc ed SLE 90% SLE 48 - 97% ----- ----- ----- ----- - ----- ----- ----- ----- ---- ----- ---- SSA (Ro) SLE 25 - 35% Sjogr en's Syndr ome 40 - 70% Neona ana Lupus 100% ----- ----- ----- ----- - ----- ----- ----- ----- ---- ----- ---- SSB (La) SLE 10% Sjogr en's Syndr ome 30% ----- ----- ----- ----- - ----- ----- ----- ----- --- ----- ---- Sm (anti -Dougie h) SLE 15 - 30% ----- ----- ----- ----- - ----- ----- ----- ----- --- ----- ---- ORTHOPEDICALLY IMPAIRED TEACHER Mixed Conne ctive Tissu e Disea se 95% (U1 nRNP, SLE 30 - 50% anti- ribon ucleo prote in) Polym yosit is and/o r Vandervoort tomyo sitis 20% ----- ----- ----- ----- - ----- ----- ----- ----- ---- ----- ---- Scl-7 0 (anti DNA Scler oderm a (diff use) 20 - 35% topoi jonathan ase) Crest 13% ----- ----- ----- ----- - ----- ----- ----- ----- ---- ----- ---- Jasmin-1 Polym yosit is and/o r Vandervoort tomyo sitis 20 - 40% ----- ----- ----- ----- - ----- ----- ----- ----- ---- ----- ---- Centr omere B Scler oderm a - Crest varia nt 80% Not Available [facility] ([facility]) [address], [place], [address], 06/14/2022 03:06:34 06/02/2006/03/2022 SEDIM ENTAT ION RATE- WESTE RGREN sedimentatio n rate-westerg anthony 15 mm/HR 0-30 Not Available [facility] ([facility]) [address], [place], [address], 06/14/2022 03:06:35 06/02/2006/03/2022 C-SUKHDEV CTIVE PROTE IN, QUANT C-reactive protein, quant 4 mg/L 0-10 Not Available [facility] ([facility]) [address] [facility] [address], [place], [address], 06/14/2022 03:06:35 08/11/20 22 08/12/2022 SYSTE AJ LUPUS PROFI LE A outside plant field engineer antibodies 0.2 ai 0.0-0. 9 Not Available [facility] ([facility]) [address] [place], [address], 08/12/2022 12:10:07 08/11/20 22 08/12/2022 SYSTE AJ LUPUS PROFI LE A silva antibodies <0.2 ai 0.0-0. 9 Not Available [facility] ([facility]) [address] [place], [address], 08/12/2022 12:10:07 08/11/20 22 08/12/2022 SYSTE AJ LUPUS PROFI LE A rheumatoid factor (rf) <10.0 IU/mL <14.0 Not Available [facility] ([facility]) [address] [place], [address], 08/12/2022 12:10:07 08/11/20 22 08/12/2022 SYSTE AJ LUPUS PROFI LE A antichromati n antibodies 1.1 ai 0.0-0. 9 above high normal Not Available [facility] ([facility]) [address] [place], [address], 08/12/2022 12:10:07 08/11/20 22 08/12/2022 SYSTE AJ LUPUS PROFI LE A sjogren's anti-ss-A <0.2 ai 0.0-0. 9 Not Available [facility] ([facility]) [address] [place], [address], 08/12/2022 12:10:07 08/11/20 22 08/12/2022 SYSTE AJ LUPUS PROFI LE A sjogren's anti-ss-B <0.2 ai 0.0-0. 9 Not Available [facility] ([facility]) [address] [place], [address], 08/12/2022 12:10:07 08/11/20 22 08/12/2022 SYSTE AJ LUPUS PROFI LE A anti-DNA (ds) Ab qn 4 IU/mL 0-9 Negat nessa <5 Equiv ocal 5 - 9 Posit nessa >9 Not Available [facility] ([facility]) [address] [place], [address], 08/12/2022 12:10:07 08/11/20 22 08/12/2022 SYSTE AJ LUPUS PROFI LE B complement C4, serum 31 mg/dL 12-38 Not Available [facility] ([facility]) [address] [place], [address], 08/12/2022 12:10:08 08/11/20 22 08/12/2022 SYSTE AJ LUPUS PROFI LE B complement C3, serum 186 mg/dL 82-167 above high normal Not Available [facility] ([facility]) [address] [place], [address], 08/12/2022 12:10:08 08/11/20 22 08/12/2022 SYSTE AJ LUPUS PROFI LE B JANESSA direct POSITI VE negati ve abnormal Not Available [facility] ([facility]) [address], [place], [address], 08/12/2022 12:10:08 11/16/19 23 11/15/2022 home sleep study No observ ation record ed. [facility] [address], [place], [address], 11/18/2022 14:52:10 Result Notes None recorded. Problems Name Problem SNOMED Code Status Onset Date Resolution Date Notes Provider Name and Address Organization Details Recorded Time Essential hypertensi on 01606490 Active 2021 JANEY PIMETNEL NP [address] , [place], [address] , [facility] - [facility] & [place] 2 09:29:10 Hyperlipid emia 00498987 Active 2021 JANEY PIMENTEL NP [address] , [place], [address] , [facility] - [facility] & [place] 2 09:29:16 Sleep apnea 95022962 Active 2021 JANEY PIMENTEL NP [address] , [place], [address] , [facility] - [facility] & [place] 2 09:29:22 Gastroesop hageal reflux disease 654657713 Active 2021 JANEY PIMENTEL NP [address], [place], [address] , [place] - [facility] & [place] 2 09:29:31 Osteoarthr itis 416764075 Active [address], [place], [address] , [facility] - [facility] & [place] 2 09:29:36 Vitamin D deficiency 24004279 Active 2021 BETTY [address] , [place], [address] , [place] [place] & [place] 2 09:29:58 Deep venous thrombosis of lower extremity 419742356 Active 2003 Dhara Flores null, [place] [place] & [place] 2 07:52:45 Chest pain 50420386 Active 2021 Dhara Gilvin null[place] 2 07:52:59 Diverticul osis of colon 365619848 Active 2021 Dhara Gilvin null[place] 2 07:53:21 Proteinuri a 61682859 Active 2021 Dhara Gilvin null[place] & [place] 2 07:53:36 Chronic kidney disease 605531830 Active 2021 Dhara Gurjitvin null[place] 2 07:53:51 Allergic rhinitis 50238632 Active 2021 Dharacuba Caglevin null, [place] & [place] 2 07:54:10 Opioid dependence 01386147 Active 2022 Heather Wilder null, [place] 3 15:49:13 Bilateral carpal tunnel syndrome 1031649635259 9101 Active 2022 Heather Wilder null, [place] & [place] 3 15:49:15 Chronic pain syndrome 766176289 Active 2022 Heather Wilder null[place] & [place] 3 15:49:17 Obesity 371912953 Active 2022 Heather Wilder null[place] & [place] 3 15:49:18 Spondylosi s without myelopathy 25069360 Active 2022 Heather Wilder null[place] 3 15:49:21 Chronic gouty arthritis 67179738 Active 2022 Heather Wilder null, [place] & [place] 3 15:49:23 Plantar fasciitis 898328548 Active 2022 Heather Wilder null, [place] [place] & [place] 3 15:49:26 Neuropathy of lower limb 770071710 Active 2022 Heather Wilder null, [place] [facility] [place] & [place] 3 15:49:29 Problem Notes None recorded. Procedures Surgical History Date Name Laterality Status Provider Name and Address Organization Details Recorded Time 1 colonoscopy completed Dhara Flores JAYLENE - [facility] - [place] & [place] 06/02/2022 07:54:58 6 colonoscopy completed Dhara Flores JAYLENE - [facility] - [place] & [place] 06/02/2022 07:54:52 Imaging Results Imaging Date Name Status LastModified by Organiz ation Details LastModified Time 11/15/2022 home sleep study completed samia [facility] [address] [facility] [address], [place], [address], 11/18/2022 14:52:10 Procedure Notes None recorded. Medical Equipment None Reported. Allergies Allergen ID Allergen Name Allergen Category Reaction Reaction Severity Criticality Documentation Date Start Date Code Code System Note Provider Name and Address Organization Details Recorded Time 70247 Anaprox medicatio n Not available Not available Not available 05/28/202288517 9 RxNorm JANEY PIMENTEL NP [address], [place], [address], [place] - [facility] & [place] 2 09:21:51 49930 Crestor medicatio n Not available Not available Not available 05/28/2022 33622 4 RxNorm JANEY PIMENTEL NP [address], [place], [address], [place] - [facility] & [place] 2 09:22:01 14236 Lipitor medicatio n Not available Not available Not available 05/28/2022 23155 5 RxNorm JANEY PIMENTEL, PUBLIC MESSAGE SERVICE SUPERVISOR [address], [place], [address], [place] - [facility] [place] & [place] 2 09:22:11 56179 etodolac medicatio n Not available Not available Not available 05/28/2022 78777 RxNorm JANEY PIMENTEL, PUBLIC MESSAGE SERVICE SUPERVISOR [address], [place], [address], [place] [facility] [place] & [place] 2 09:22:52 87493 Naprosyn medicatio n Not available Not available Not available 05/28/2022 2 RxNorm JANEY PIMENTEL, PUBLIC MESSAGE SERVICE SUPERVISOR [address], [place], [address], [place] [facility] [place] & [place] 2 09:23:01 77694 pravastat in medicatio n Not available Not available Not available 05/28/2022 81094 RxNorm JANEY PIMENTEL, PUBLIC MESSAGE SERVICE SUPERVISOR [address], [place], [address], [place] [facility] [place] & [place] 2 09:23:21 17401 lisinopri l medicatio n Not available Not available Not available 05/28/2022 61783 RxNorm JANEY PIMENTEL, PUBLIC MESSAGE SERVICE SUPERVISOR [address], [place], [address], [place] [facility] [place] & [place] 2 09:23:28 95121 Livalo medicatio n Not available Not available Not available 05/28/2022 89465 2 RxNorm JANEY PIMENTEL, PUBLIC MESSAGE SERVICE SUPERVISOR [address], [place], [address], [place] [facility] [place] & [place] 2 09:23:35 61896 Welchol medicatio n Not available Not available Not available 05/28/2022 87853 8 RxNorm JANEY PIMENTEL, PUBLIC MESSAGE SERVICE SUPERVISOR [address], [place], [address], [place] [facility] [place] & [place] 2 09:23:41 77365 Zetia medicatio n Not available Not available Not available 05/28/2022 19076 9 RxNorm JANEY MARGARITO, PUBLIC MESSAGE SERVICE SUPERVISOR [address], [place], [address], [facility] & [place] 2 09:24:03 69459 Zocor medicatio n Not available Not available Not available 05/28/2022 60845 3 RxNorm JANEY MARGARITO, PUBLIC MESSAGE SERVICE SUPERVISOR [address], [place], [address], [place] - [place] [facility] & [place] 2 09:24:09 69561 red yeast rice food,medi cation Not available Not available Not available 05/28/2022 06780 0 RxNorm JANEY MARGARITO, PUBLIC MESSAGE SERVICE SUPERVISOR [address], [place], [address], [facility] & [place] 2 09:24:25 Medications Name Sig Start Date Stop Date Status Note LastModified by Organization Details LastModified Time gabapentin 600 mg tablet TAKE 2 TABLETS BY MOUTH THREE TIMES DAILY DIRECTED active Not Available Not Available No t Available nabumetone 750 mg tablet TAKE 1 TABLET BY MOUTH TWICE DAILY 06/02 completed Not Available Not Available Not Available prednisone 5 mg tablet TAKE 3 TABLETS BY MOUTH DAILY FOR 7 DAYS THEN TAKE 2 TABLETS BY MOUTH DAILY FOR 7 DAYS THEN TAKE 1 TABLET BY MOUTH DAILY FOR 7 DAYS active Not Available Not Available No t Available tramadol 50 mg tablet TAKE 1 TABLET BY MOUTH TWICE DAILY NEEDED FOR CHRONIC PAIN 2022 active Not Available Not Available Not Avai labmalu triamcinolo ne acetonide 0.1 % topical cream APPLY THIN LAYER TOPICALLY TO THE AFFECTED AREA TWICE DAILY active Not Available Not Available No t Available fenofibrate micronized 134 mg capsule TAKE 1 CAPSULE BY MOUTH EVERY DAY WITH A MEAL 06/02 completed Not Available Not Available Not Available losartan 100 mg-hydrochl orothiazide 25 mg tablet TAKE 1 TABLET BY MOUTH EVERY DAY active Not Available Not Available No t Available gabapentin 800 mg tablet Take 1 tablet every 8 hours by oral route as directed for 30 days. 08/11 completed Not Available Not Available Not Available pantoprazol e 40 mg tablet,cr yed release TAKE 1 TABLET BY MOUTH EVERY DAY active Not Available Not Available No t Available gabapentin 300 mg capsule TAKE 1 CAPSULE BY MOUTH THREE TIMES DAILY 06/02 completed Not Available Not Available Not Available allopurinol 300 mg tablet TAKE 1/2 TABLET BY MOUTH EVERY DAY active Not Available Not Available No t Available gabapentin 100 mg capsule TAKE 1 CAPSULE BY MOUTH THREE TIMES DAILY FOR 15 DAYS 06/02 completed Not Available Not Available Not Available colchicine 0.6 mg tablet TAKE 2 TABLETS BY MOUTH NOW THEN 1 TABLET 1 HOUR LATER active Not Available Not Available No t Available amoxicillin 875 mg-potassiu m clavulanate 125 mg tablet TAKE 1 TABLET BY MOUTH EVERY 12 HOURS FOR 7 DAYS active Not Available Not Available No t Available neomycin-po lymyxin-hyd rocort 3.5 mg-10,000 unit/mL-1 % ear drops,susp SHAKE LIQUID AND INSTILL 4 DROPS TO AFFECTED EAR THREE TIMES DAILY active Not Available Not Available No t Available losartan 100 mg-hydrochl orothiazide 12.5 mg tablet Take 1 tablet every day by oral route. 06/02 completed Not Available Not Available Not Available Livalo 1 mg tablet Take 1 tablet every day by oral route. active Not Available Not Available No t Available Eliquis 5 mg tablet TAKE 1 TABLET BY MOUTH TWICE DAILY active Not Available Not Available No t Available vitamin D3 1,250 mcg (50,000 unit)-vitam in K2 200 mcg capsule Take by oral route. active Not Available Not Available No t Available Mounjaro 2.5 mg/0.5 mL subcutaneou s pen injector active Not Available Not Available Not Available Vitals Date Recorded Body height Provider Name an d Address Organization Details Last Updated DateTime 08/25/2022 179.07 cm Crys Carney [place] - [place] [facility] & [place] 08/25/2022 08:19:31 Date Recorded Body height Body mass index (BMI) Body weight Body temperature Oxygen saturation Oxygen saturation in Arterial blood by Pulse oximetry Heart rate Systolic blood pressure Diastolic blood pressure Provider Name and Address Organization Details Last Updated DateTime 179.07 cm 44.3 kg/m2 894980. 13 g 98 [degF] 92 % 92 % 68 /min 153 mm[Hg] 88 mm[Hg] Anna Marcel [facility] & [place] 3 08:24:13 Date Recorded Body height Body mass index (BMI) Body weight Body temperature Oxygen saturation Oxygen saturation in Arterial blood by Pulse oximetry Heart rate Respiratory rate Systolic blood pressure Diastolic blood pressure Provider Name and Address Organization Details Last Updated DateTime 2 182.88 cm 43.8 kg/m2 647080. 05 g 96.9 [degF] 93 % 93 % 66 /min 18 /min 146 mm[Hg] 85 mm[Hg] kristen gaitan [facility] & [place] 2 10:11:45 Date Recorded Body height Body mass index (BMI) Body weight Body temperature Oxygen saturation Oxygen saturation in Arterial blood by Pulse oximetry Heart rate Systolic blood pressure Diastolic blood pressure Provider Name and Address Organization Details Last Updated DateTime 2 179.07 cm 45.8 kg/m2 704122. 93 g 98.1 [degF] 96 % 96 % 74 /min 160 mm[Hg] 88 mm[Hg] Dhara Sandra [facility] & [place] 2 15:15:39 Date Recorded Body height Body mass index (BMI) Body weight Body temperature Oxygen saturation Oxygen saturation in Arterial blood by Pulse oximetry Heart rate Systolic blood pressure Diastolic blood pressure Provider Name and Address Organization Details Last Updated DateTime 2 179.07 cm 44.3 kg/m2 653472. 41 g 97 [degF] 94 % 94 % 70 /min 140 mm[Hg] 90 mm[Hg] Dhara Flores [facility] & [place] 2 07:57:04 Social History Question Answer Notes LastModified by Organizat ion Details LastModified Time Tobacco Smoking Status Never Smoker JANEY PIMENTEL, BETTY [address] [facility], [place], [address], [facility] & [place] 05/28/2022 09:31:43 What Is Your Level Of Caffeine Consumption? Occasional Information not available 06/02/2022 What Was The Date Of Your Most Recent Tobacco Screening? 06/02/2022 Information not available 06/02/2022 Has Tobacco Cessation Counseling Been Provided? No [email or web address] Information not available 05/28/2022 Sex: Unknown Functional Status Question Answer Note LastModified by Organizat ion Details LastModified Time Do you use any illicit or recreational drugs? No [email or web address] Information not available 05/28/2022 Do you or have you ever used any other forms of tobacco or nicotine? No [email or web address] Information not available 05/28/2022 What is your level of alcohol consumption? None [email or web address] Information not available 05/28/2022 Mental Status None recorded. Family History Nothing Reported Notes:Mother: 84 yr s, history of hypertension, DM, diagnosed with Diabetes, Hypertension, CAD Father: 68 yrs, cause of was heart attack, history of DM, partial amputation of foot, diagnosed with Diabetes Daughter #1: alive, diagnosed with NKFH Daughter #2: alive, diagnosed with NKFH Medical History Condition Response Coronary Artery Disease N Gout N Hernia N Head Trauma/Injury N Depression N COPD N Anxiety Disorder N Arthritis Y Acid Reflux (GERD) Y Cancer N Stroke N Back Injury N High Cholesterol Y Liver Disease N Headaches N Fibromyalgia N Kidney Disease Y Allergies/Hayfever Y Thyroid Problems N Anemia N Ulcers N Heart Attack ([place]) N Diabetes N Bleeding Disorder N Tuberculosis N Asthma N Substance Abuse N Hepatitis N Heart Disease N Hypertension Y Osteoporosis N Immunizations Vaccine Type Date Status Note Provider Nam e and Address Organization Details Recorded Time Hep A, adult 8 completed Dhara neri, [place] - [facility] [place] & [place] 08/11/2022 07:57:39 pneumococcal polysaccharide PPV23 6 completed Dhara Flores null[place] [facility] [place] & [place] 08/11/2022 07:57:39 pneumococcal polysaccharide PPV23 1 completed Dhara Flores [place] [facility] 08/11/2022 07:57:39 Pneumococcal conjugate PCV 13 7 completed Dhara Flores [place] [facility] 08/11/2022 07:57:39 zoster recombinant 9 completed Dhara Flores [place] [facility] 08/11/2022 07:57:39 zoster recombinant 9 completed Dhara Flores [place] 08/11/2022 07:57:39 Tdap 2 completed Dhara Flores null[place] [facility] [place] 08/11/2022 07:57:39 zoster live 8 completed Dhara Flores null[place] [facility] & [place] 08/11/2022 07:57:39 COVID-19, mRNA, LNP-S, PF, 100 mcg/0.5mL dose or 50 mcg/0.25mL dose 1 completed ELLIOT KAPLAN NP [address] [place] [address], [place] [facility] [place] & [place] 06/14/2022 08:15:49 COVID-19, mRNA, LNP-S, PF, 100 mcg/0.5mL dose or 50 mcg/0.25mL dose 1 completed ELLIOT KAPLAN NP [address] [place] [address], [place] [facility] [place] & [place] 06/14/2022 08:15:49 Influenza, adjuvanted, trivalent, PF 8 completed ELLIOT KAPLAN NP [address] [place] [address], [place] [facility] [place] & [place] 06/14/2022 08:15:49 Influenza, split virus, quadrivalent, preservative 0 completed ELLIOT KAPLAN NP [address] [place] [address], [place] [facility] [place] & [place] 06/14/2022 08:15:49 COVID-19, mRNA, LNP-S, PF, 100 mcg/0.5mL dose or 50 mcg/0.25mL dose 1 completed ELLIOT KAPLAN NP [address] [place] [address], [place] [facility] [place] [facility] [place] 06/14/2022 08:15:49 Influenza, high-dose, quadrivalent, PF 2 completed JAYLENE Scott - [facility] - [place] & [place] 08/11/2022 07:57:39 Past Encounters Encounter ID Performer Location Encounter Start Date Encounter Closed Date Diagnosis/Indication Diagnosis SNOMED-CT Code Diagnosis ICD10 Code Diagnosis Note [id number] Reginald Delgado MD [facility] [address] [address] 05/31/2022 09:42:34 05/31/2022 10:33:28 Osteoarthritis 361043947 M19.072 Plantar fasciitis 20280323 003 M72.2 Neuropathy of lower limb 577936260 G57.93 Chronic go uty arthritis 62685766 M1A.09X0 Spondylosi s without myelopathy 01762815 M47.817 Obesity 739171708 E66.9 Chronic pain syndrome 37 4805363 G89.4 Bilateral carpal tunnel syndrome 5744380120 7473286 G56.01 Opioid dependence 539306 00 F11.[id number] [address] 06/02/2022 15:03:20 06/02/2022 15:58:40 Dry skin 03253006 L85.3 stay hydratedus e of lotionmay decrease fluid pill but awaiting lab work Xerostomia 71718211 R68. 2 awaiting lab work and then may change for less of fluid pill Sleep apnea 28829517 G47 .30 Pain of mu ltiple joints 47284221 M25.50 awaiting lab workexerci se/weight management Fatigue 15315352 R53.83 Daytime hypersomnia 3177 512373 3866 G47.19 sleep study ordered Hyperglycemia 63033156 R 73.9 awaiting oume2hsbxp forced diet and lifestyle changes Hyperlipidemia 87113706 E78.5 Administra tion of influenza vaccine 95763589 Z23 [id number] ELLIOT KAPLAN NP [address] [address] 08/11/2022 07:46:55 08/11/2022 08:26:51 Acute left otitis media 968945319 H66.92 Patient presents for evaluation of ear infection. . Discussed orders with {{patient* family pa tient and family car egiver pat ient and caregiver} }. Otitis ext andrei of left ear 2965181574 196736 H60.92 Anti-nucle ar factor detected 494990684 R76.8 recheck lab work todaycompl iance of chronic conditions Acute dermatitis 7635174 6 L30.9 skin is very dry, educated on keeping skin moist Fatigue 67303518 R53.83 needs sleep studyhas not been wearing machine due to recall [id number] Reginald Delgado MD [facility] [address] [id number] 08/25/2022 08:12:15 08/25/2022 09:02:24 Neuropathy of lower limb 128050471 G57.93 Osteoarthritis 714228613 M19.072 Plantar fasciitis 733113 003 M72.2 Chronic go uty arthritis 31693090 M1A.09X0 Spondylosi s without myelopathy 00779353 M47.817 [id number] CESAR BEARD PA-C [facility] [address] [id number] 10/11/2022 07:56:15 10/11/2022 08:27:28 Neuropathy of lower limb 266982505 G57.93 Osteoarthritis 642068039 M19.072 Plantar fasciitis 547823 003 M72.2 Chronic go uty arthritis 06488782 M1A.09X0 Spondylosi s without myelopathy 06556007 M47.817 Health Concerns Section Related Observation LastModified by Organization Detai ls LastModified Time None Recorded Concern Status LastModified by Organization Details LastModified Time None Recorded Advance Directives Directive None Recorded Payers Insurance Date Sequence Insurance Name Policy Number Policy Chua Covered Member ID Chua Member ID Guarantor Name 03/10/2024 1 [place] [id number] Giovanny Dumont [id number] Giovanny Dumont 05/17/2019 1 [place]AD [place]ANTAGE - HMO) [id number] Giovanny Dumont [id number] Giovanny Dumont 08/07/2019 1 [id number] Giovanny Dumont [id number] Giovanny Dumont 03/10/2024 1 [place]ANTAGE - HMO) [id number] Giovanny Dumont [id number] Giovanny Dumont Notes Date Note Type Note Provider Name and Address Organization Details Recorded Time 2 text/html 65 year old male referred from Dr. Kaplan for chronic joint pain. Patient complains of multiple joint pain to the bilateral hands, ankles, and knees. Patient also complaining of pain in bilateral legs with numbness and tingling. Pain radiates from his bilateral knees to his toes. He notes he was diagnosed with mild arthritis and treated for Gout by percussion teacher Dr. Fan Brock. Patient takes Tramadol as needed for pain with no relief. He has tried PT in the past with no relief. 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 Last DVT was over 1 year ago. Patient states his worst pain is in his bilateral legs and feet. 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 The patient presents to the clinic today 2 weeks s/p an left ankle injection reporting short-term pain relief of 1 week. He continues to complain of intermittent bilateral foot pain with numbness and tingling. Gabapentin allows him to remain functional however, is not controlling all of his pain. Pain is rated 7/10._ __ __ __ __ __ __ __ __ __ __ __ __ __ __ __ __ __ __ __ __ __ __ __ __ __ __ __ _*Onset: 10+ years*Context: worsening over time*Character: aching, throbbing, numbness, tingling*Location: Low back pain, multiple joints, bilateral legs and feet*Duration: continuous with fluctuations*Intensity: /10*Worse: prolonged standing, carrying heavy loads*Better: nothing*Associated symptoms: Denies saddle anaesthesia, denies acute bowel/bladder changes, denies acute power loss*ADLs: The patient's pain interferes with daily chores, exercise, sleep, relationships, and walking.*Current Pain Medications: Tramadol little relief*Prior Pain Medications: Relafen, no reliefNSAIDS/OTC- Tylenol, no relief*Non-interventional Tx: Chiropractor, no relief*Surgery: Left Knee replacement, bunionectomy*Physical Therapy: in the past with no relief*Interventional Tx: None*Imaging/Studies: None. Reginald Delgado MD [address], [place], [address], [facility] & [place] 06/01/2022 14:47:46 2 text/html HyperlipidemiaReported bypatient.Duration:chronic Control:usually well controlled; improving; at goal Adherence to Treatment Plan:follows recommended diet; exercises; takes medications as prescribed Complications:coronary artery disease Risk Factors:hypertensionHypert ensionReported bypatient.Duration:has noted for years Alleviating Factors:medication Self Care:not under emotional stress; blood pressure goal: <130/90; using an ARB Associated Symptoms:no shortness of breath; no palpitations tired all the time, fall asleep with just sitting downsleep apnea in the past, didn't wear like he was supposed to so taken away with insurance bone, joint pain not relieved with multiple treatmentsdryness of mouth and eyes allopurinol didn't make a differencenabumetone has restarted ELLIOT KAPLAN NP [address] [place], [address], [facility] 06/07/2022 08:05:24 2 text/html FatigueReported bypatient.Quality:generali zed Severity:moderate Duration:chronic Context:with exertion; no new stressors in life; cardiopulmonary disease Associated Symptoms:no depression; no alcohol consumption; no anxiety; no sleep disturbances; no weight loss; no weight gain; no chest pain;sleep apnea;joint pain;rash;joint pain without inflammation;exertional fatigue 66 yr old male who presents with multiple complaints.Leg pain, seen by pain, increase in gabapentin not helping.Whole body itchiness with random lesions mainly around his ankles, come and go.Ear bleeding, noticed a couple day ago.Continues to be tired all the time. ELLIOT KAPLAN NP [address] [place] [address], [address], [facility] - [place] & [place] 08/23/2022 15:44:42 3 text/html Mr. Dumont was referred from Dr. Kaplan for chronic joint pain. Patient complains of multiple joint pain to the bilateral hands, ankles, and knees. Patient also complaining of pain in bilateral legs with numbness and tingling. Pain radiates from his bilateral knees to his toes. He notes he was diagnosed with mild arthritis and treated for Gout by percussion teacher Dr. Fan Brock. Patient takes Tramadol as needed for pain with no relief. He has tried PT in the past with no relief. 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 Last DVT was over 1 year ago. Patient states his worst pain is in his bilateral legs and feet. 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 The patient presents via televideo today for medication refill. He states that his current medication regimen is managing pain and well-tolerated, allowing him to remain function. He notes that he recently picked up his medication on 08/23 and has an additional refill when needed. He continues to complain of intermittent bilateral foot pain with numbness and tingling that affects his daily function significantly. Pain is rated 7/10._ __ __ __ __ __ __ __ __ __ __ __ __ __ __ __ __ __ __ __ __ __ __ __ __ __ __ __ _Initial complaint: chronic low back painOnset: 10+ yearsContext: worsening over timeCharacter: aching, throbbing, numbness, tinglingLocation: Low back pain, multiple joints, bilateral legs and feetDuration: continuous with fluctuationsInitial Intensity: 7/10Worse: prolonged standing, carrying heavy loadsBetter: nothingAssociated symptoms: Denies saddle anaesthesia, denies acute bowel/bladder changes, denies acute power lossADLs: The patient's pain interferes with daily chores, exercise, sleep, relationships, and walking.Current Pain Medications: Tramadol little reliefPrior Pain Medications: Relafen, no reliefNSAIDS/OTC- Tylenol, no reliefNon-interventional Tx: Chiropractor, no reliefSurgery: Left Knee replacement, bunionectomyPhysical Therapy: in the past with no reliefInterventional Tx: NoneImaging/Studies: None Reginald Delgado MD [address], [place], [address], [facility] & [place] 08/26/2022 14:04:38 3 text/html Mr. Dumont was referred from Dr. Kaplan for chronic joint pain. Patient complains of multiple joint pain to the bilateral hands, ankles, and knees. Patient also complaining of pain in bilateral legs with numbness and tingling. Pain radiates from his bilateral knees to his toes. He notes he was diagnosed with mild arthritis and treated for Gout by percussion teacher Dr. Fan Brock. Patient takes Tramadol as needed for pain with no relief. He has tried PT in the past with no relief. 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 Last DVT was over 1 year ago. Patient states his worst pain is in his bilateral legs and feet. 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 The patient presents to the clinic today for a medication refill. The patient states that he stopped Gabapentin, as he was uncertain regarding efficacy. The patient continues to complain of multiple joint pain, commenting that he is following with rheumatology, whom is prescribing oral steroids. The patient also complains of numbness/tingling of the BLE. Today the pain level is a /10._ __ __ __ __ __ __ __ __ __ __ __ __ __ __ __ __ __ __ __ __ __ __ __ __ __ __ __ _Initial complaint: chronic low back painOnset: 10+ yearsContext: worsening over timeCharacter: aching, throbbing, numbness, tinglingLocation: Low back pain, multiple joints, bilateral legs and feetDuration: continuous with fluctuationsInitial Intensity: 7/10Worse: prolonged standing, carrying heavy loadsBetter: nothingAssociated symptoms: Denies saddle anaesthesia, denies acute bowel/bladder changes, denies acute power lossADLs: The patient's pain interferes with daily chores, exercise, sleep, relationships, and walking.Current Pain Medications: Tramadol little reliefPrior Pain Medications: Relafen, no reliefNSAIDS/OTC- Tylenol, no reliefNon-interventional Tx: Chiropractor, no reliefSurgery: Left Knee replacement, bunionectomyPhysical Therapy: in the past with no reliefInterventional Tx: NoneImaging/Studies: None CESAR BEARD PA-C [address], [place], [address], [facility] - [place] & [place] 10/14/2022 12:45:06
--- NOTE | 2025-01-01 08:30 | US_ITS ---
FINAL REPORT CLINICAL HISTORY: HTN, bilateral rest pain, bilateral claudication. FINDINGS: Ankle-brachial indices was performed. The right ROSA is 1.5. The left ROSA is 1.5. IMPRESSION: ROSA within normal limits bilaterally. Reviewed, Interpreted and Dictated by Ramon Ryan MD Transcribed by Liza Martin Authenticated and [facility]
== END 2025-01-01 23:59 | disposition home or self-care (01) ==
LOC: RT 08:13
PROVIDERS: PCP Family Medicine; Visit Provider Specialist
DX: I73.9 Peripheral vascular disease, unspecified (principal); I10 Essential (primary) hypertension; G47.33 Obstructive sleep apnea (adult) (pediatric); M62.81 Muscle weakness (generalized); G62.9 Polyneuropathy, unspecified; R20.0 Anesthesia of skin
CPT/HCPCS: 93923

== ENCOUNTER 2025-03-05 14:28 | Outpatient (CLI) | payer MEDICARE, SELFPAY ==
--- OUTSIDE RECORDS SUMMARY | 2025-03-05 14:30 | XMS_ITS | Encounter Summary ---
Author Organization [employer] ([place], [place], [place], [place]) Address [address] [place] [address] Care Team Providers Care [employer] Retailer Sales Consultant Name Role Phone Julio C Oleary MD Primary Care Provider [phone]- [phone] Reason for Visit * Reason Comments Medication Refill Encounter Details Date Type Department Care Team ([facility] Contact Info) Description 01/08/2024 Refill [facility] Rheumatology [address] [place] [address] Amparo Izquierdo MD [address] [facility] [address] [place] [address] Seronegative rheumatoid arthritis (HCC) Social History Tobacco Use Types Packs/Day Years Used Date Smoking Tobacco: Never Smokeless Tobacco: Never Alcohol Use Standard Drinks/Week Comments Yes 0 (1 standard drink = 0.6 oz pur e alcohol) socially Food Insecurity Answer Date Recorded Food run out past 12 months Not on file 08/22 Food did not last past 12 months Not on file 09/09/2023 Employment Answer Date Recorded Help finding and keeping a job Not on file 0 09/09/2023 Family and Community Support Answer Angel e Recorded Help with Day to Day Activities Not on file 09/09/2023 Feeling Lonely or Isolated Not on file 09/09 Educational Attainment Answer Date Sam rded Speak language other than Welsh at home Not on file 09/09/2023 Want help with school or training Not on file 09/09/2023 Substance Use Answer Date Recorded Used prescription meds for non-medical reasons N ot on file 09/09/2023 Used illegal drugs past 12 months Not on file 09/09/2023 Sex and Gender Information Value Date Recorded Sex Assigned at Not on file Legal Sex Male 12:50 PM CDT Gender Identity Not on file Sexual Orientation Not on file documented as of this encounter Plan of Treatment Not on file documented as of this encounter Visit Diagnoses Diagnosis Seronegative rheumatoid arthritis (HCC) Rheumatoid arthritis documented in this encounter Care Teams [employer] Retailer Sales Consultant Relationship Specialty Start Date End Date Julio C Oleary MD [address] [place] [address] [place] [address] PCP - General Family Medicine 04/18/23 documented as of this encounter
--- OUTSIDE RECORDS SUMMARY | 2025-03-05 14:30 | XMS_ITS | Encounter Summary ---
Author Organization [employer] ([place], [place], [place], [place]) Address [address] [place] [address] Care Team Providers Care Health And Safety Consultant Name Role Phone Julio C Oleary MD Primary Care Provider [phone]- [phone] Reason for Visit * Reason Comments Medication Refill Encounter Details Date Type Department Care Team ([facility] Contact Info) Description 12/18/2023 Refill [facility] Rheumatology [address] [place] [address] Amparo Izquierdo MD [address] [facility] [address] [place] [address] Other osteoarthritis involving multiple joints Social History Tobacco Use Types Packs/Day Years [...] Date Sam rded Speak language other than Latvian at home Not on file 09/09/2023 Want [...] as of this encounter Visit Diagnoses Diagnosis Other osteoarthritis involving multiple joints documented in this encounter Care Teams Health And Safety Consultant Relationship Specialty Start Date End Date Julio C Oleary MD [address] [place] [address] PCP - General Family Medicine 04/18/23 documented as of this encounter
--- OUTSIDE RECORDS SUMMARY | 2025-03-05 14:30 | XMS_ITS | Encounter Summary ---
Author Organization [employer] ([place], [place], [place], [place]) Address [address] [place] [address] Care Team Providers Care Chucking Machine Set Up Operator Tool Name Role Phone Julio C Oleary MD Primary Care Provider +1- [phone] Reason for Visit * Reason Comments Medication Refill Encounter Details Date Type Department Care Team ([facility] Contact Info) Description 08/19/2023 Refill [facility] [address] [facility] [address] [place] [address] Amparo Izquierdo MD [address] [facility] [address] [place], [place] [id number] Other osteoarthritis involving multiple joints Social History Tobacco Use Types Packs/Day Years Used Date Smoking Tobacco: Never Smokeless Tobacco: Never Alcohol Use Standard Drinks/Week Comments Yes 0 (1 standard drink = 0.6 oz pur e alcohol) socially Sex and Gender Information Value Date Recorded Sex Assigned at Not on file Legal Sex Male 12:50 PM CDT Gender Identity Not on file Sexual Orientation Not on file documented as of this encounter Plan of Treatment Not on file documented as of this encounter Visit Diagnoses Diagnosis Other osteoarthritis involving multiple joints documented in this encounter Care Teams Chucking Machine Set Up Operator Tool Relationship Specialty Start Date End Date Julio C Oleary MD [address] [place] [address] PCP - General Family Medicine 04/18/23 documented as of this encounter
--- OUTSIDE RECORDS SUMMARY | 2025-03-05 14:30 | XMS_ITS | Clinical Summary ---
Author Organization [employer] ([place], [place], [place], [place]) Address [address] [place] [address] Care Team Providers Care Power Engineer Name Role Phone Julio C Oleary MD Primary Care Provider +1- [phone] Allergies Active Allergy Reactions Criticality Noted Date Comments Naproxen 10/04/2022 Medications allopurinoL (ZYLOPRIM) 300 MG tablet Take 0.5 tablets (150 mg total) by mouth daily. 09/11/2022 Active Eliquis 5 MG tablet Take 1 tablet (5 mg total) by mouth 2 (two) times daily. 08/23/2022 Active losartan-hydroC HLOROthiazide (HYZAAR) 100-25 mg per tablet Take 1 tablet by mouth daily. 08/16/2022 Active pantoprazole (PROTONIX) 40 MG tablet Take 1 tablet (40 mg total) by mouth daily. 09/08/2022 Active Active Problems No known active problems Immunizations Name Administration Dates Next Due Covid-19 Vaccine MRNA (PF) 18yr+ (Moderna)([id number]) 11/13/2020 INFLUENZA TRIVALENT ADJUVANTED PF IM 06/30/2018 Influenza High Dose Preservative Free IM ([id number] ) 06/02/2022 Influenza Quad-qiv Non Pf 06/09/2020 Family History Medical History Relation Name Comments Diabetes Mother Hypertension Mother Diabetes Other sibling Relation Name Status Comments Mother Other sibling Social History Tobacco Use Types Packs/Day Years Used Date Smoking Tobacco: Never Smokeless Tobacco: Never Tobacco Cessation:Counseling Given: Not Answered Alcohol Use Standard Drinks/Week Comments Yes 0 [...] Date Sam rded Speak language other than Guatemalan at home Not on file 09/09/2023 Want [...] on file Sexual Orientation Not on file Last Filed Vital Signs Vital Sign Reading Time Taken Comments Blood Pressure 143/92 08/25/2023 8:08 AM EST Pulse 65 08/25/2023 8:08 AM EST Temperature 36.6 C (97.8 F) 04/18/2023 8:17 AM EDT Respiratory Rate 18 08/25/2023 8:08 AM EST Oxygen Saturation 93% 08/25/2023 8:08 AM EST Inhaled Oxygen Concentration - - Weight 139.1 kg (306 lb 9.6 oz) 08/25/2023 8:08 AM EST Height 182.9 cm (6') 08/25/2023 8:08 AM EST Body Mass Index 41.58 08/25/2023 8:08 AM EST Plan of Treatment Health Maintenance Due Date Last Done Comments CT Colonography 1955 Colonoscopy 1955 Colorectal Cancer Screening 1955 FOBT/FIT 1955 Fit-DNA (Cologuard) 1955 Sigmoidoscopy 1955 Depression Screening (12+) 1967 Respiratory Syncytial Virus (RSV) Adult or (1 - Risk 60-74 years 1-dose series) 2015 Shingles Vaccine (Zoster) (2 of 2) 12/09/20172017 DTAP/TDAP/TD VACCINES (2 - T d or Tdap) 09/14/2021 09/14/2011 Medicare Initial AWV [id number] 08/23/2022 COVID-19 VACCINE ( season) 2024 08/06/2021, 11/13/2020, 10/16/2020 Falls Risk Screening 08/22/2024 Tobacco Cessation Counseling and Screening (12+) 08/25/2024 08/25/2023 Influenza Vaccine (#1) 2025 2, 06/09/2020, 06/30/2018 Pneumococcal 50+ years Completed , 10/04/2016, 11/18/2015 Hepatitis C Screening Completed 10/04/2022 Procedures Procedure Name Priority Date/Time Associated Diagnosis Comments HEPATITIS C ANTIBODY Routine 10/04/2022 11:04 AM EST [place], unspecified type (HCC) from Last 3 Months or Most Recently Relevant to Health Maintenance Results * Hepatitis C antibody (10/04/2022 11:04 AM EST) Hep C Virus Ab Non Reactive Non Reactive [facility] Comment: HCV antibody alone does not differentiate between previously resolved infection and active infection. Equivocal and Reactive HCV antibody results should be followed up with an HCV RNA test to support the diagnosis of active HCV infection. Blood 10/04/2022 11:0 4 AM EST 10/04/2022 Narrative [facility] - 10/11/2022 4:05 AM EST Performed at: 01 - [facility] [id number] Hydro Sprayer Operator: Chidi Kelley PhD, Phone: [phone] us Apmaro Izquierdo MD LAB BLOOD ORDERABLES Final Resul t [facility] from Last 3 Months or Most Recently Relevant to Health Maintenance Insurance [facility] [employer] [place] Care Teams Power Engineer Relationship Specialty Start Date End Date Julio C Oleary MD [address] [place] [address] PCP - General Family Medicine 04/18/23
--- OUTSIDE RECORDS SUMMARY | 2025-03-05 14:30 | XMS_ITS | Data Portability ---
Author Organization [place] - [facility] - [place] & MARKIE Osei ADMIN Address [address] [place] [id number] Assessment Encounter Date Assessment Date Assessment LastModified [...] TID for 1 month #180, 2 refills [email or web address] Not available 06/01/2022 07:23:27 08/25/2022 08/25/2022 Telehealth visit is being conducted from [address] [place] [address]. This was a real-time clinical encounter over [[email or web address] ]. Consent was obtained to engage in [...] 6-8 weeks to discuss the treatment plan. [email or web address] Not available 10/14/2022 12:44:53 Plan of Treatment Reminders Order Date Submit Date Provider Last Modified By Organization Details Last Modified Time Details Appointments None recorded. Lab unlisted lab - systemic lupus profile A 2021 [facility], [address], [address], [place], [address], 12:10:07 unlisted lab - systemic lupus profile B 2021 022 [facility], [address], [address], [place], [address], 12:10:08 JANESSA (antinucle ar antibodies ) screen, serum 2021 [email or web address] [facility], [address], [address], [place], [address], 08:52:27 lipid panel, serum 2021 [facility], [address], [place], [address], 03:06:31 TSH, ultra-sens itive, serum 2021 022 [facility], [address], [place], [address], 03:06:32 vitamin B12 + folate, serum or blood 2021 022 [facility], [address], [place], [address], 03:06:32 HbA1c (hemoglobi n A1c), blood 2021 022 [facility], [address], [place], [address], 2 03:06:32 CBC w/ auto diff 2021 [facility], [address], [address], [place], [address], 2 03:06:30 CMP, serum or plasma 2021 [facility], [address], [address], [place], [address], 2 03:06:31 C reactive protein, QN, serum or plasma 2021 [facility], [address], [address], [place], [address], 03:06:35 ESR (erythrocy te sedimentat ion rate), blood 2021 [facility], [address], [address], [place], [address], 2 03:06:35 JANESSA (antinucle ar antibodies ) screen, serum 2021 [facility], [address], [address], [place], [address], 2 03:06:34 rf (rheumatoi d factor) iga, serum 2021 [facility], [address], [address], [place], [address], 2 03:06:34 uric acid, serum or plasma 2021 [facility], [address], [address], [place], [address], 03:06:34 ccp (cyclic citrullina calin peptide) iga+igg, serum 2021 [facility], [address], [facility] [address], [place], [address], 03:06:33 Referral None recorded. Procedures None recorded. Surgeries None recorded. Imaging [email or web address] [address], [address], [place], [address], 3 11:10:19 Medication Orders neomycin-p olymyxin-h ydrocort 3.5 mg-10,000 unit/mL-1 % ear drops,susp 2021 [facility] [employer] [facility][id number], [address], [place], [place], [id number], 2 08:16:50 amoxicilli n 875 mg-potassi um clavulanat e 125 mg tablet 2021 [facility] #[id number], [address], [place], [place], [id number], 2 08:16:51 triamcinol one acetonide 0.1 % topical cream 2021 [facility] #[id number], [address], [place], [place], [id number], 2 08:16:51 gabapentin 600 mg tablet 2021 [facility] #15044, [address] [place], [place], [id number], 14:47:53 Patient TargetsNo targets recorded. Patient InstructionsNo instructions recorded. Reason for Referral None Reported. Results Created Date Observation Date Name Description Value Unit Range Abnormal Flag Note LastModifiedBy Organization Detail LastModifiedTime 06/02/20 06/03/2022 CBC WITH DIFFE RENTI AL/PL ATELE T WBC 9.4 x10e3 /uL 3.4-10 .8 Not Available [facility]) [address] [facility], [place], [address], 06/14/2022 03:06:30 06/02/20 22 06/03/2022 CBC WITH DIFFE RENTI AL/PL ATELE T RBC 4.57 x10e6 /uL 4.14-5 .80 Not Available [facility] ([facility]) [address] [facility], [place], [address], 06/14/2022 03:06:30 06/02/20 22 06/03/2022 CBC WITH DIFFE RENTI AL/PL ATELE T hemoglobin 14.9 g/dL 13.0-1 7.7 Not Available [facility] ([facility]) [address] [facility], [place], [address], 06/14/2022 03:06:30 06/02/20 22 06/03/2022 CBC WITH DIFFE RENTI AL/PL ATELE T hematocrit 43.4 % 37.5-5 1.0 Not Available [facility] ([facility]) [address] [facility], [place], [address], 06/14/2022 03:06:30 06/02/2006/03/2022 CBC WITH DIFFE RENTI AL/PL ATELE T MCV 95 fL 79-97 Not Available [facility] ([facility]) [address] [place], [address], 06/14/2022 03:06:30 06/02/2006/03/2022 CBC WITH DIFFE RENTI AL/PL ATELE T MCH 32.6 pg 26.6-3 3.0 Not Available [facility] ([facility]) [address] [place], [address], 06/14/2022 03:06:30 06/02/20 06/03/2022 CBC WITH DIFFE RENTI AL/PL ATELE T MCHC 34.3 g/dL 31.5-3 5.7 Not Available [facility] ([facility]) [address] [facility], [place], [address], 06/14/2022 03:06:30 06/02/20 22 06/03/2022 CBC WITH DIFFE RENTI AL/PL ATELE T RDW 13.0 % 11.6-1 5.4 Not Available [facility] ([facility]) [address] [facility], [place], [address], 06/14/2022 03:06:30 06/02/2006/03/2022 CBC WITH DIFFE RENTI AL/PL ATELE T platelets 308 x10e3 /uL 150-45 0 Not Available [facility] ([facility]) [address] [facility], [place], [address], 06/14/2022 03:06:30 06/02/20 22 06/03/2022 CBC WITH DIFFE RENTI AL/PL ATELE T neutrophils 59 % not estab. Not Available [facility] ([facility]) [address] [facility], [place], [address], 06/14/2022 03:06:30 06/02/20 22 06/03/2022 CBC WITH DIFFE RENTI AL/PL ATELE T lymphs 23 % not estab. Not Available [facility] ([facility]) [address] [facility], [place], [address], 06/14/2022 03:06:30 06/02/20 22 06/03/2022 CBC WITH DIFFE RENTI AL/PL ATELE T monocytes 11 % not estab. Not Available [facility] ([facility]) [address] [facility], [place], [address], 06/14/2022 03:06:30 06/02/20 22 06/03/2022 CBC WITH DIFFE RENTI AL/PL ATELE T eos 4 % not estab. Not Available [facility] ([facility]) [address] [facility], [place], [address], 06/14/2022 03:06:30 06/02/20 22 06/03/2022 CBC WITH DIFFE RENTI AL/PL ATELE T basos 1 % not estab. Not Available [facility] ([facility]) [address] [facility], [place], [address], 06/14/2022 03:06:30 06/02/20 22 06/03/2022 CBC WITH DIFFE RENTI AL/PL ATELE T immature cells RECLAIMER Not Available [facility]) [address] [facility], [place], [address], 06/14/2022 03:06:30 06/02/20 22 06/03/2022 CBC WITH DIFFE RENTI AL/PL ATELE T neutrophils (absolute) 5.6 x10e3 /uL 1.4-7. 0 Not Available [facility] ([facility]) [address] [place], [address], 06/14/2022 03:06:30 06/02/20 22 06/03/2022 CBC WITH DIFFE RENTI AL/PL ATELE T lymphs (absolute) 2.2 x10e3 /uL 0.7-3. 1 Not Available [facility] ([facility]) [address] [place], [address], 06/14/2022 03:06:30 06/02/20 22 06/03/2022 CBC WITH DIFFE RENTI AL/PL ATELE T monocytes(ab solute) 1.0 x10e3 /uL 0.1-0. 9 above high normal Not Available [facility] ([facility]) [address] [place], [address], 06/14/2022 03:06:30 06/02/20 22 06/03/2022 CBC WITH DIFFE RENTI AL/PL ATELE T eos (absolute) 0.4 x10e3 /uL 0.0-0. 4 Not Available [facility] ([facility]) [address] [facility], [place], [address], 06/14/2022 03:06:30 06/02/20 22 06/03/2022 CBC WITH DIFFE RENTI AL/PL ATELE T baso (absolute) 0.1 x10e3 /uL 0.0-0. 2 Not Available [facility] ([facility]) [address] [facility], [place], [address], 06/14/2022 03:06:30 06/02/20 22 06/03/2022 CBC WITH DIFFE RENTI AL/PL ATELE T immature granulocytes 2 % not estab. Not Available [facility] ([facility]) [address] [facility], [place], [address], 06/14/2022 03:06:30 06/02/20 22 06/03/2022 CBC WITH [...] frankie signi fican ce.) Not Available [facility] ([facility]) [address] [facility], [place], [address], 06/14/2022 03:06:30 06/02/20 22 06/03/2022 CBC WITH DIFFE RENTI AL/PL ATELE T NRBC RECLAIMER Not Available [facility] ([facility]) [address] [facility], [place], [address], 06/14/2022 03:06:30 06/02/20 22 06/03/2022 CBC WITH DIFFE RENTI AL/PL ATELE T hematology comments: RECLAIMER Not Available [facility]) [address] [facility], [place], [address], 06/14/2022 03:06:30 06/02/20 22 06/03/2022 COMP. METAB OLIC PANEL (14) glucose 108 mg/dL 70-99 above high normal Ple ase note refer ence inter job ring e Not Available [facility] ([facility]) [address] [facility], [place], [address], 06/14/2022 03:06:31 06/02/20 22 06/03/2022 COMP. METAB OLIC PANEL (14) BUN 20 mg/dL 8-27 Not Available [facility] ([facility]) [address] [facility], [place], [address], 06/14/2022 03:06:31 06/02/20 22 06/03/2022 COMP. METAB OLIC PANEL (14) creatinine 1.39 mg/dL 0.76-1 .27 above high normal Not Available [facility] ([facility]) [address] [facility], [place], [address], 06/14/2022 03:06:31 06/02/20 22 06/03/2022 COMP. METAB OLIC PANEL (14) eGFR 56 mL/mi n/1.7 3 >59 below low normal Not Available [facility] ([facility]) [address] [facility], [place], [address], 06/14/2022 03:06:31 06/02/20 22 06/03/2022 COMP. METAB OLIC PANEL (14) BUN/creatini ne ratio 14 06-14 Not Available [facility] [address] [facility], [place], [address], 06/14/2022 03:06:31 06/02/20 22 06/03/2022 COMP. METAB OLIC PANEL (14) sodium 141 mmol/ L 134-14 4 Not Available [facility] ([facility]) [address] [place], [address], 06/14/2022 03:06:31 06/02/20 22 06/03/2022 COMP. METAB OLIC PANEL (14) potassium 4.0 mmol/ L 3.5-5. 2 Not Available [facility] ([facility]) [address] [place], [address], 06/14/2022 03:06:31 06/02/20 22 06/03/2022 COMP. METAB OLIC PANEL (14) chloride 103 mmol/ L 96-106 Not Available [facility] ([facility]) [address] [facility], [place], [address], 06/14/2022 03:06:31 06/02/20 22 06/03/2022 COMP. METAB OLIC PANEL (14) carbon dioxide, total 22 mmol/ L 20-29 Not Available [facility] ([facility]) [address] [place], [address], 06/14/2022 03:06:31 06/02/20 22 06/03/2022 COMP. METAB OLIC PANEL (14) calcium 9.5 mg/dL 8.6-10 .2 Not Available [facility] ([facility]) [address] [place], [address], 06/14/2022 03:06:31 06/02/20 22 06/03/2022 COMP. METAB OLIC PANEL (14) protein, total 7.1 g/dL 6.0-8. 5 Not Available [facility] ([facility]) [address] [place], [address], 06/14/2022 03:06:31 06/02/20 22 06/03/2022 COMP. METAB OLIC PANEL (14) albumin 4.3 g/dL 3.8-4. 8 Not Available [facility] ([facility]) [address] [place], [address], 06/14/2022 03:06:31 06/02/20 22 06/03/2022 COMP. METAB OLIC PANEL (14) globulin, total 2.8 g/dL 1.5-4. 5 Not Available [facility] ([facility]) [address] [place], [address], 06/14/2022 03:06:31 06/02/20 22 06/03/2022 COMP. METAB OLIC PANEL (14) A/G ratio 1.5 1.2-2. 2 Not Available [facility] ([facility]) [address] [place], [address], 06/14/2022 03:06:31 06/02/20 22 06/03/2022 COMP. METAB OLIC PANEL (14) bilirubin, total 0.4 mg/dL 0.0-1. 2 Not Available [facility] ([facility]) [address] [place], [address], 06/14/2022 03:06:31 06/02/20 22 06/03/2022 COMP. METAB OLIC PANEL (14) alkaline phosphatase 87 IU/L 44-121 Not Available [facility] [address] [facility], [address], 06/14/2022 03:06:31 06/02/20 22 06/03/2022 COMP. METAB OLIC PANEL (14) AST (SGOT) 27 IU/L 0-40 Not Available [facility] ([facility]) [address] [place], [address], 06/14/2022 03:06:31 06/02/20 22 06/03/2022 COMP. METAB OLIC PANEL (14) ALT (SGPT) 34 IU/L 0-44 Not Available [facility] ([facility]) [address] [place], [address], 06/14/2022 03:06:31 06/02/20 22 06/03/2022 LIPID PANEL WITH LDL/H DL RATIO cholesterol, total 149 mg/dL 100-19 9 Not Available [facility] ([facility]) [address] [facility], [place], [address], 06/14/2022 03:06:31 06/02/20 22 06/03/2022 LIPID PANEL WITH LDL/H DL RATIO triglyceride s 224 mg/dL 0-149 above high normal Not Available [facility] ([facility]) [address] [facility], [place], [address], 06/14/2022 03:06:31 06/02/20 22 06/03/2022 LIPID PANEL WITH LDL/H DL RATIO HDL cholesterol 37 mg/dL >39 below low normal Not Available [facility] ([facility]) [address] [facility], [place], [address], 06/14/2022 03:06:31 06/02/20 22 06/03/2022 LIPID PANEL WITH LDL/H DL RATIO VLDL cholesterol frankie 37 mg/dL 5-40 Not Available [facility] [address] [facility], [place], [address], 06/14/2022 03:06:31 06/02/20 22 06/03/2022 LIPID PANEL WITH LDL/H DL RATIO LDL chol calc ([facility]) 75 mg/dL 0-99 Not Available [facility] [address] [facility], [place], [address], 06/14/2022 03:06:31 06/02/20 22 06/03/2022 LIPID PANEL WITH LDL/H DL RATIO comment: RECLAIMER Not Available [facility] ([facility]) [address] [facility], [place], [address], 06/14/2022 03:06:31 06/02/20 22 06/03/2022 LIPID PANEL WITH LDL/H DL RATIO LDL/HDL ratio 2.0 ratio 0.0-3. 6 LDL/H DL Ratio Men Women 1/2 Avg.R isk 1.0 1.5 Avg.R isk 3.6 3.2 2X Avg.R isk 6.2 5.0 3X Avg.R isk 8.0 6.1 Not Available [facility] ([facility]) [address] [place], [address], 06/14/2022 03:06:31 06/02/20 22 06/03/2022 VITAM IN B12 AND FOLAT E vitamin B12 593 pg/mL 232-12 45 Not Available [facility] ([facility]) [address] [place], [address], 06/14/2022 03:06:32 06/02/2006/03/2022 VITAM IN B12 AND FOLAT E folate (folic acid), serum 8.5 NG/mL >3.0 A serum folat e patricia ntrat ion of less than 3.1 ng/mL is consi dered to repre sent clini frankie defic iency . Not Available [facility] ([facility]) [address] [facility], [place], [address], 06/14/2022 03:06:32 06/02/2006/03/2022 HEMOG LOBIN A1C hemoglobin A1C 6.4 % 4.8-5. 6 above high normal Predi abete s: 5.7 - 6.4 Diabe macario: >6.4 Glyce aj contr ol for adult s with diabe macario: <7.0 Not Available [facility] ([facility]) [address] [place], [address], 06/14/2022 03:06:32 06/02/20 22 06/03/2022 TSH TSH 1.850 uIU/m L 0.450- 4.500 Not Available [facility] ([facility]) [address] [place], [address], 06/14/2022 03:06:32 06/02/20 22 06/03/2022 ANTI- CCP AB, IGG/I GA anti-ccp Ab, IgG/IgA 10 units 0-19 Negat nessa <20 Weak posit nessa 20 - 39 Moder ate posit nessa 40 - 59 Stron g posit nessa >59 Not Available [facility] ([facility]) [address] [place], [address], 06/14/2022 03:06:33 06/02/20 22 06/13/2022 RF, IGA BY EIA (RDL) rf, IgA by EIA (rdl) <7 U <7 Not Available [facility] [address] [place], [address], 06/14/2022 03:06:34 06/02/20 22 06/03/2022 URIC ACID uric acid 9.1 mg/dL 3.8-8. 4 above high normal Gerard medina t for gout patie nts: <6.0 Not Available [facility] ([facility]) [address] [place], [address], 06/14/2022 03:06:34 06/02/20 22 06/03/2022 JANESSA W/REF NAHUM IF POSIT NESSA JANESSA direct Positi ve negati ve abnormal Not Available [facility] ([facility]) [address] [place], [address], 06/14/2022 03:06:34 06/02/2006/03/2022 JANESSA W/REF NAHUM IF POSIT NESSA anti-DNA (ds) Ab qn 4 IU/mL 0-9 Negat nessa <5 Equiv ocal 5 - 9 Posit nessa >9 Not Available [facility] ([facility]) [address] [place], [address], 06/14/2022 03:06:34 06/02/20 22 06/03/2022 JANESSA W/REF NAHUM IF POSIT NESSA sql database developer antibodies <0.2 ai 0.0-0. 9 Not Available [facility] ([facility]) [address] [place], [address], 06/14/2022 03:06:34 06/02/20 22 06/03/2022 JANESSA W/REF NAHUM IF POSIT NESSA silva antibodies <0.2 ai 0.0-0. 9 Not Available [facility] ([facility]) [address] [place], [address], 06/14/2022 03:06:34 06/02/20 22 06/03/2022 JANESSA W/REF NAHUM IF POSIT NESSA antisclerode rma-70 antibodies <0.2 ai 0.0-0. 9 Not Available [facility] ([facility]) [address] [place], [address], 06/14/2022 03:06:34 06/02/20 22 06/03/2022 JANESSA W/REF NAHUM IF POSIT NESSA sjogren's anti-ss-A <0.2 ai 0.0-0. 9 Not Available [facility] ([facility]) [address] [place], [address], 06/14/2022 03:06:34 06/02/20 22 06/03/2022 JANESSA W/REF NAHUM IF POSIT NESSA sjogren's anti-ss-B <0.2 ai 0.0-0. 9 Not Available [facility] ([facility]) [address] [place], [address], 06/14/2022 03:06:34 06/02/20 22 06/03/2022 JANESSA W/REF NAHUM IF POSIT NESSA antichromati n antibodies 2.0 ai 0.0-0. 9 above high normal Not Available [facility] ([facility]) [address] [place], [address], 06/14/2022 03:06:34 06/02/20 22 06/03/2022 JANESSA W/REF NAHUM IF POSIT NESSA anti-jasmin-1 <0.2 ai 0.0-0. 9 Not Available [facility] ([facility]) [address] [facility], [place], [address], 06/14/2022 03:06:34 06/02/20 22 06/03/2022 JANESSA W/REF NAHUM IF POSIT NESSA anti-centrom ere B antibodies <0.2 ai 0.0-0. 9 Not Available [facility] ([facility]) [address] [facility], [place], [address], 06/14/2022 03:06:34 06/02/2006/03/2022 JANESSA W/REF NAHUM IF POSIT NESSA see below: Fawn heck [employer] nt[employer] dy [employer] se [employer] iatio [...] ----- ----- ----- ----- --- ----- ---- BOILERMAKER PIPE FITTER Mixed Conne ctive Tissu e Disea se 95% (U1 nRNP, SLE 30 - 50% anti- ribon ucleo prote in) Polym yosit is and/o r Piedra Aguza tomyo sitis 20% ----- ----- ----- ----- - ----- ----- ----- ----- ---- ----- ---- Scl-7 0 (anti DNA Scler oderm a (diff use) 20 - 35% topoi jonathan ase) Crest 13% ----- ----- ----- ----- - ----- ----- ----- ----- ---- ----- ---- Jasmin-1 Polym yosit is and/o r [place] Aguza tomyo sitis 20 - 40% ----- ----- ----- ----- - ----- ----- ----- ----- ---- ----- ---- Centr omere B Scler oderm a - Crest varia nt 80% Not Available [facility]) [address] [place], [address], 06/14/2022 03:06:34 06/02/2006/03/2022 SEDIM ENTAT ION RATE- WESTE RGREN sedimentatio n rate-westerg anthony 15 mm/HR 0-30 Not Available [facility]) [address] [place], [address], 06/14/2022 03:06:35 06/02/2006/03/2022 C-SUKHDEV CTIVE PROTE IN, QUANT C-reactive protein, quant 4 mg/L 0-10 Not Available [facility]) [address] [place], [address], 06/14/2022 03:06:35 08/11/20 22 08/12/2022 SYSTE AJ LUPUS PROFI LE A sql database developer antibodies 0.2 ai 0.0-0. 9 Not Available [facility] ([facility]) [address] [place], [address], 08/12/2022 12:10:07 08/11/20 22 08/12/2022 SYSTE AJ LUPUS PROFI LE A silva antibodies <0.2 ai 0.0-0. 9 Not Available [facility] ([facility]) [address] [place], [address], 08/12/2022 12:10:07 08/11/20 22 08/12/2022 SYSTE AJ LUPUS PROFI LE A rheumatoid factor (rf) <10.0 IU/mL <14.0 Not Available [facility] [address] [place], [address], 08/12/2022 12:10:07 08/11/20 22 08/12/2022 SYSTE AJ LUPUS PROFI LE A antichromati n antibodies 1.1 ai 0.0-0. 9 above high normal Not Available [facility] ([facility]) [address] [place], [address], 08/12/2022 12:10:07 08/11/20 22 08/12/2022 SYSTE AJ LUPUS PROFI LE A sjogren's anti-ss-A <0.2 ai 0.0-0. 9 Not Available [facility] ([facility]) [address] [place], [address], 08/12/2022 12:10:07 08/11/20 22 08/12/2022 SYSTE AJ LUPUS PROFI LE A sjogren's anti-ss-B <0.2 ai 0.0-0. 9 Not Available [facility] ([facility]) [address] [place], [address], 08/12/2022 12:10:07 08/11/20 22 08/12/2022 SYSTE AJ LUPUS PROFI LE A anti-DNA (ds) Ab qn 4 IU/mL 0-9 Negat nessa <5 Equiv ocal 5 - 9 Posit nessa >9 Not Available [facility] ([facility]) [address] [place], [address], 08/12/2022 12:10:07 08/11/20 22 08/12/2022 SYSTE AJ LUPUS PROFI LE B complement C4, serum 31 mg/dL 12-38 Not Available [facility] [address] [place], [address], 08/12/2022 12:10:08 08/11/20 22 08/12/2022 SYSTE AJ LUPUS PROFI LE B complement C3, serum 186 mg/dL 82-167 above high normal Not Available [facility] ([facility]) [address] [place], [address], 08/12/2022 12:10:08 08/11/20 22 08/12/2022 SYSTE AJ LUPUS PROFI LE B JANESSA direct POSITI VE negati ve abnormal Not Available [facility] ([facility]) [address], [place], [address], 08/12/2022 12:10:08 11/16/19 23 11/15/2022 home sleep study No observ ation record ed. [facility] [address], [place], [address], 11/18/2022 14:52:10 Result Notes None recorded. Problems Name Problem SNOMED Code Status Onset Date Resolution Date Notes Provider Name and Address Organization Details Recorded Time Essential hypertensi on 93569993 Active 2021 JANEY PIMENTEL NP [address] , [place], [address] , [facility] & [place] 2 09:29:10 Hyperlipid emia 82630404 Active 2021 JANEY PIMENTEL NP [address] , [place], [address] , [place] - [facility] & [place] 2 09:29:16 Sleep apnea 14661848 Active 2021 JANEY PIMENTEL NP [address] , [place], [address] , [place] - [facility] & [place] 2 09:29:22 Gastroesop hageal reflux disease 900804241 Active [address], [place], [address] , [place] - [facility] & [place] 2 09:29:31 Osteoarthr itis 599078440 Active [address], [place], [address] , [place] - [facility] & [place] 2 09:29:36 Vitamin D deficiency 47456592 Active [address], [place], [address] , [place] - [facility] [place] & [place] 2 09:29:58 Deep venous thrombosis of lower extremity 482036040 Active 2003 Dhara Gilandria null, [place] [facility] [place] & [place] 2 07:52:45 Chest pain 39075271 Active 2021 Dhara Gilvin null, [place] [facility] [place] & [place] 2 07:52:59 Diverticul osis of colon 814192170 Active 2021 Dhara Gilvin null, [place] [facility] [place] & [place] 2 07:53:21 Proteinuri a 93893021 Active 2021 Dhara [place] [facility] [place] 2 07:53:36 Chronic kidney disease 586491860 Active 2021 Dhara [place] [facility] [place] 2 07:53:51 Allergic rhinitis 27120743 Active 2021 Dhara [place] [facility] [place] 2 07:54:10 Opioid dependence 63459381 Active 2022 Heather Wilder [place] [facility] [place] 3 15:49:13 Bilateral carpal tunnel syndrome [id number] 9101 Active 2022 Heather Wilder [place] [facility] [place] 3 15:49:15 Chronic pain syndrome 299868268 Active 2022 Heather [place] [facility] [place] 3 15:49:17 Obesity 279890480 Active 2022 Heather [place] [facility] [place] 3 15:49:18 Spondylosi s without myelopathy 94991828 Active 2022 Heather Wilder [place] [facility] [place] 3 15:49:21 Chronic gouty arthritis 02649389 Active 2022 Heather Wilder [place], [place] [facility] [place] 3 15:49:23 Plantar fasciitis 471172252 Active 2022 Heather Wilder [place] [facility] [place] 3 15:49:26 Neuropathy of lower limb 169417871 Active 2022 Heather Wilder [place], [place] [facility] [place] 3 15:49:29 Problem Notes None recorded. Procedures Surgical History Date Name Laterality Status Provider Name and Address Organization Details Recorded Time 1 colonoscopy completed Dhara MARIEE - [facility] [place] [facility] [place] 06/02/2022 07:54:58 6 colonoscopy completed Dhara MARIEE - [facility] - [place] [facility] [place] 06/02/2022 07:54:52 Imaging Results None recorded. Procedure Notes None recorded. Medical Equipment None Reported. Allergies Allergen ID Allergen Name Allergen Category Reaction Reaction Severity Criticality Documentation Date Start Date Code Code System Note Provider Name and Address Organization Details Recorded Time 62890 Anaprox medicatio n Not available Not available Not available 05/28/202222758 9 RxNorm JANEY PIMENTEL NP [address] , [place], [address], [place] [facility] & [place] 2 09:21:51 55341 Crestor medicatio n Not available Not available Not available 05/28/2022 23101 4 RxNorm JANEY PIMENTEL NP [address], [place], [address], [place] & [place] 2 09:22:01 73020 Lipitor medicatio n Not available Not available Not available 05/28/2022 65586 5 RxNorm JANEY PIMENTEL NP [address], [place], [address], [place] [facility] [facility] & [place] 2 09:22:11 73663 etodolac medicatio n Not available Not available Not available 05/28/2022 02226 RxNorm JANEY PIMENTEL, RECLAIMER [address], [place], [address], [place] & [place] 2 09:22:52 03256 Naprosyn medicatio n Not available Not available Not available 05/28/2022 13697 2 RxNorm JANEY PIMENTEL, RECLAIMER [address], [place], [address], [place] & [place] 2 09:23:01 72082 pravastat in medicatio n Not available Not available Not available 05/28/2022 59381 RxNorm JANEY PIMENTEL, RECLAIMER [address], [place], [address], [place] 2 09:23:21 81881 lisinopri l medicatio n Not available Not available Not available 05/28/2022 17339 RxNorm JANEY PIMENTEL, RECLAIMER [address], [place], [address], [place] 2 09:23:28 91494 Livalo medicatio n Not available Not available Not available 05/28/2022 98542 2 RxNorm JANEY PIMENTEL, RECLAIMER [address], [place], [address], [place] 2 09:23:35 13244 Welchol medicatio n Not available Not available Not available 05/28/2022 87080 8 RxNorm JANEY PIMENTEL, RECLAIMER [address], [place], [address], [place] 2 09:23:41 99859 Zetia medicatio n Not available Not available Not available 05/28/2022 27772 9 RxNorm JANEY MARGARITO, RECLAIMER [address], [place], [address], [place] 2 09:24:03 55513 Zocor medicatio n Not available Not available Not available 05/28/2022 64353 3 RxNorm JANEY PIMENTEL, BETTY [address], [place], [address], [place] 2 09:24:09 28243 red yeast rice food,medi cation Not available Not available Not available 05/28/2022 89921 0 RxNorm JANEY PIMENTEL NP [address], [place], [address], [place] 2 09:24:25 Medications Name Sig Start Date [...] active Not Available Not Available Not Avai lable triamcinolo ne acetonide 0.1 % topical cream [...] Updated DateTime 08/25/2022 179.07 cm [facility] [place] 08/25/2022 08:19:31 Date Recorded Body height Body mass index (BMI) Body weight Body temperature Oxygen saturation Oxygen saturation in Arterial blood by Pulse oximetry Heart rate Systolic And Diastolic Provider Name and Address Organization Details Last Updated DateTime 3 179.07 cm 44.3 kg/m2 612531. 13 g 98 [degF] 92 % 92 % 68 /min 153/88 mm[Hg] [facility] [place] 3 08:24:13 Date Recorded Body height Body mass index (BMI) Body weight Body temperature Oxygen saturation Oxygen saturation in Arterial blood by Pulse oximetry Heart rate Respiratory rate Systolic And Diastolic Provider Name and Address Organization Details Last Updated DateTime 2 182.88 cm 43.8 kg/m2 078497. 05 g 96.9 [degF] 93 % 93 % 66 /min 18 /min 146/85 mm[Hg] kristen MARIEE [facility] & [place] 2 10:11:45 Date Recorded Body height Body mass index (BMI) Body weight Body temperature Oxygen saturation Oxygen saturation in Arterial blood by Pulse oximetry Heart rate Systolic And Diastolic Provider Name and Address Organization Details Last Updated DateTime 2 179.07 cm 45.8 kg/m2 787777. 93 g 98.1 [degF] 96 % 96 % 74 /min 160/88 mm[Hg] Dhara MARIEE [facility] & [place] 2 15:15:39 Date Recorded Body height Body mass index (BMI) Body weight Body temperature Oxygen saturation Oxygen saturation in Arterial blood by Pulse oximetry Heart rate Systolic And Diastolic Provider Name and Address Organization Details Last Updated DateTime 2 179.07 cm 44.3 kg/m2 932531. 41 g 97 [degF] 94 % 94 % 70 /min 140/90 mm[Hg] Dhara MARIEE [facility] & [place] 2 07:57:04 Social History Question Answer Notes LastModified by [employer] Details LastModified Time Tobacco Smoking Status Never Smoker JANEY PIMENTEL, BETTY [address] [place], [address], [facility] & [place] 05/28/2022 09:31:43 What Is Your Level Of Caffeine Consumption? Occasional Information not available 06/02/2022 What Was The Date Of Your Most Recent Tobacco Screening? 06/02/2022 Information not available 06/02/2022 Has Tobacco Cessation Counseling Been Provided? No [email or web address] Information not available 05/28/2022 Sex: Unknown Functional Status Question Answer Note LastModified by [employer] Details LastModified Time Do you use any illicit or recreational drugs? No [email or web address] Information not available 05/28/2022 Do you or have you ever used any other forms of tobacco or nicotine? No [email or web address] Information not available 05/28/2022 What is your level of alcohol consumption? None [email or web address] Information not available 05/28/2022 Mental Status None recorded. Family History Nothing Reported Notes:Mother: 84 yr s, history of hypertension, DM, diagnosed with Diabetes, Hypertension, CAD Father: 68 yrs, cause of was heart attack, history of DM, partial amputation of foot, diagnosed with Diabetes Daughter #1: alive, diagnosed with NKFH Daughter #2: alive, diagnosed with NKFH Medical History Condition Response Allergies/Hayfever Y Coronary Artery Disease N Gout N Hernia N Head Trauma/Injury N Thyroid Problems N Depression N COPD N Anemia N Heart Attack ([place]) N Ulcers N Anxiety Disorder N Diabetes N Bleeding Disorder N Arthritis Y Tuberculosis N Acid Reflux (GERD) Y Cancer N Stroke N Asthma N Substance Abuse N Back Injury N High Cholesterol Y Hepatitis N Liver Disease N Heart Disease N Headaches N Fibromyalgia N Hypertension Y Osteoporosis N Kidney Disease Y Immunizations Vaccine Type Date Status Note Provider Nam e and Address Organization Details Recorded Time Hep A, adult 8 completed Dhara [place] null, [place] 08/11/2022 07:57:39 pneumococcal polysaccharide PPV23 6 completed Dhara Sandra [place] 08/11/2022 07:57:39 pneumococcal polysaccharide PPV23 1 completed Dhara Flores [place] 08/11/2022 07:57:39 Pneumococcal conjugate PCV 13 7 completed Dhara [place] 08/11/2022 07:57:39 zoster recombinant 9 completed Dhara [place] null, [place] [facility] & [place] 08/11/2022 07:57:39 zoster recombinant 9 completed Dhara Flores [place] 08/11/2022 07:57:39 Tdap 2 completed Dhara Flores [place] 08/11/2022 07:57:39 zoster live 8 completed Dhara Flores null[place] 08/11/2022 07:57:39 COVID-19, mRNA, LNP-S, PF, 100 mcg/0.5mL dose or 50 mcg/0.25mL dose 1 completed ELLIOT KAPLAN NP [address] [place] [address], [address], [place] 06/14/2022 08:15:49 COVID-19, mRNA, LNP-S, PF, 100 mcg/0.5mL dose or 50 mcg/0.25mL dose 1 completed ELLIOT KAPLAN NP [address] [place] [address], [address] [place] [address], [place] [facility] & [place] 06/14/2022 08:15:49 Influenza, adjuvanted, trivalent, PF 8 completed ELLIOT KAPLAN NP [address] [place] [address], [address], [place] [facility] [facility] & [place] 06/14/2022 08:15:49 Influenza, split virus, quadrivalent, preservative 0 completed ELLIOT KAPLAN NP [address] [place] [address], [address], [place] [facility] [facility] & [place] 06/14/2022 08:15:49 COVID-19, mRNA, LNP-S, PF, 100 mcg/0.5mL dose or 50 mcg/0.25mL dose 1 completed ELLIOT KAPLAN NP [address] [place] [address], [address], [place] [facility] [facility] & [place] 06/14/2022 08:15:49 Influenza, high-dose, quadrivalent, PF 2 completed Dhara neri, [place] [facility] [facility] & [place] 08/11/2022 07:57:39 Past Encounters Encounter ID Performer Location Encounter Start Date Encounter Closed Date Diagnosis/Indication Diagnosis SNOMED-CT Code Diagnosis ICD10 Code Diagnosis Note [id number] Reginald Delgado MD [facility] [address] [place] [address] 05/31/2022 09:42:34 05/31/2022 10:33:28 Osteoarthritis 385714656 M19.072 Plantar fasciitis 543168 003 M72.2 Neuropathy of lower limb 056019448 G57.93 Chronic go uty arthritis 94980798 M1A.09X0 Spondylosi s without myelopathy 27191506 M47.817 Obesity 972817552 E66.9 Chronic pain syndrome 37 5982309 G89.4 Bilateral carpal tunnel syndrome 8261343559 9345655 G56.01 Opioid dependence 567690 00 F11.20 [id number] ELLIOT KAPLAN NP [address] [address] 06/02/2022 15:03:20 06/02/2022 15:58:40 Dry skin 26556588 L85.3 stay hydratedus e of lotionmay decrease fluid pill but awaiting lab work Xerostomia 71678946 R68. 2 awaiting lab work and then may change for less of fluid pill Sleep apnea 32323436 G47 .30 Pain of mu ltiple joints 55857454 M25.50 awaiting lab workexerci se/weight management Fatigue 39872723 R53.83 Daytime hypersomnia 3177 210337 6416 G47.19 sleep study ordered Hyperglycemia 56203127 R 73.9 awaiting [id number] forced diet and lifestyle changes Hyperlipidemia 60136604 E78.5 Administra tion of influenza vaccine 30139273 Z23 [id number] ELLIOT KAPLAN NP [address] [address] 08/11/2022 07:46:55 08/11/2022 08:26:51 Acute left otitis media 225676440 H66.92 Patient presents for evaluation of ear infection. . Discussed orders with patient. Otitis ext andrei of left ear 1981426440 745628 H60.92 Anti-nucle ar factor detected 168893712 R76.8 recheck lab work todaycompl iance of chronic conditions Acute dermatitis 5593592 6 L30.9 skin is very dry, educated on keeping skin moist Fatigue 91080192 R53.83 needs sleep studyhas not been wearing machine due to recall [id number] Reginald Delgado MD [facility] [address] [place] [address] 08/25/2022 08:12:15 08/25/2022 09:02:24 Neuropathy of lower limb 326768551 G57.93 Osteoarthritis 195845554 M19.072 Plantar fasciitis 044199 003 M72.2 Chronic go uty arthritis 37374816 M1A.09X0 Spondylosi s without myelopathy 69873443 M47.817 [id number] CESAR BEARD PA-C [facility] [address] [place] [address] 10/11/2022 07:56:15 10/11/2022 08:27:28 Neuropathy of lower limb 093358431 G57.93 Osteoarthritis 908204178 M19.072 Plantar fasciitis 477652 003 M72.2 Chronic go uty arthritis 44288034 M1A.09X0 Spondylosi s without myelopathy 79587738 M47.817 Health Concerns Section Related Observation LastModified by Organization Detai ls LastModified Time None Recorded Concern Status LastModified by Organization Details LastModified Time None Recorded Advance Directives Directive None Recorded Payers Insurance Date Sequence Insurance Name Policy Number Policy Chua Covered Member ID Chua Member ID Guarantor Name 03/10/2024 1 [place] H[place]) [id number] Giovanny B Fryman [id number] Giovanny B Fryman 05/17/2019 1 [place]AD [place]ANTAGE - HMO) [id number] Giovanny B Fryman [id number] Giovanny B Fryman 08/07/2019 1 [id number] Giovanny B Fryman [id number] Giovanny B Fryman 03/10/2024 1 [place] VANTAGE - [place]MO) [id number] Giovanny B Fryman [id number] Giovanny B Fryman Notes Date Note Type Note Provider Name [...] mild arthritis and treated for Gout by handbag finisher Dr. Fan Brock. 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 Reginald Delgado MD [address] [facility], [place], [address], [facility] & [place] 06/01/2022 14:47:46 2 text/html HyperlipidemiaReported bypatient.Duration:chronic Control:usually [...] differencenabumetone has restarted ELLIOT KAPLAN NP [address] [place], [address], [facility] & [place] 06/07/2022 08:05:24 2 text/html FatigueReported bypatient.Quality:generali zed [...] tired all the time. ELLIOT KAPLAN NP [address] [place], [address], [facility] & [place] 08/23/2022 15:44:42 3 text/html Mr. Dumont was referred from Dr. Kaplan for chronic joint pain. Patient complains of multiple joint pain to the bilateral hands, ankles, and knees. Patient also complaining of pain in bilateral legs with numbness and tingling. Pain radiates from his bilateral knees to his toes. He notes he was diagnosed with mild arthritis and treated for Gout by handbag finisher Dr. Fan Brock. 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 Dumont was referred from Dr. Kaplan for chronic joint pain. Patient complains of multiple joint pain to the bilateral hands, ankles, and knees. Patient also complaining of pain in bilateral legs with numbness and tingling. Pain radiates from his bilateral knees to his toes. He notes he was diagnosed with mild arthritis and treated for Gout by handbag finisher Dr. Fan Brock. 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 Today the pain level is a 8/10._ __ __ __ __ __ __ __ [...] reliefInterventional Tx: NoneImaging/Studies: None CESAR BEARD PA-C [address], [place], [address], [facility] - [facility] - [place] & [place] 10/14/2022 12:45:06
--- OUTSIDE RECORDS SUMMARY | 2025-03-05 14:30 | XMS_ITS | Clinical Summary ---
Author Organization Healthcare Address [address] [place] [address] Care Team Providers Care Director Of Integrated Marketing Name Role Phone Unavailable Primary Care Provider Unavailabl e Encounters Date Type Department Care Team Description 01/18/2025 [facility] Orders [facility] [address] [place] [address] Lidia Barrios MD Muscle weakness (generalized) (Primary Dx); Peripheral vascular disease, unspecified (CMS/HCC); Lumbosacral spondylosis without myelopathy from Last 3 Months Social History Tobacco Use Types Packs/Day Years Used Date Smoking Tobacco: Never Assessed Sex and Gender Information Value Date Recorded Sex Assigned at Not on file Legal Sex Male 7:39 PM EDT Gender Identity Not on file Sexual Orientation Not on file Plan of Treatment Not on file
--- OUTSIDE RECORDS SUMMARY | 2025-03-05 14:30 | XMS_ITS | Encounter Summary ---
Author Organization [employer] ([place], [place], [place], [place]) Address [address] [place] [address] Care Team Providers Care Tandem Mill Operator Name Role Phone JamesBecky lang JEANETTE Primary Care Provider [phone] Julio C Oleary MD Primary Care Provider [phone] Reason for Visit * Reason Onset Date Comments Medication Problem 01/13/2023 Encounter Details Date Type Department Care Team (Late st Contact Info) Description 01/13/2023 Telephone [facility] [address] [place] [address] Amparo Izquierdo MD [address] [facility] [address] [place] [address] Medication Problem Social History Tobacco Use Types Packs/Day Years [...] on file documented as of this encounter Miscellaneous Notes * Telephone Encounter - William June LPN - 02/14/2023 10:37 AM EDT Patient Called back he is ok with doing the Prednisone Taper. Would Like it to go to [facility]. * Telephone Encounter - William June LPN - 02/14/2023 9:23 AM EDT Called Lm for patient * Telephone Encounter - Amparo Izquierdo MD - 02/11/2023 10:45 AM EDT we can try prednisone taper and if not better, he needs to come in this week thanks * Telephone Encounter - William June LPN - 02/11/2023 8:27 AM EDT Called to the patient he is still having Joint stiffness he just picked up the second bottle on Leflunomide 20 mg and says with the the weather changes his pain level is at 8-9/10 . * Telephone Encounter - Milena Lees - 01/13/2023 8:37 AM EDT Patient is returning call regarding blood work. I did give message Dr. Izquierdo left. He is also wanting to speak with someone regarding his arthritis medication. He mentioned it is not helping at all. [phone] documented in this encounter Plan of Treatment Not on file documented as of this encounter Visit Diagnoses Not on filedocumented in this encounter Care Teams Tandem Mill Operator Relationship Specialty Start Date End Date Becky Ramirez APRN [address] [place] [address] PCP - General Nurse Practitioner 09/06/22 04/17/23 Julio C Oleary MD [address] [place] [address] PCP - General Family Medicine 04/18/23 documented as of this encounter
--- OUTSIDE RECORDS SUMMARY | 2025-03-05 14:30 | XMS_ITS | Encounter Summary ---
Author Organization [facility] Address [address] [place] [address] Care Team Providers Care Cardroom Hand Name Role Phone Unavailable Primary Care Provider Unavailabl e Reason for Referral * Consultation (Routine) - Authorized Specialty Diagnoses / Procedures Referred By Contac t Referred To Contact Neurology Diagnoses Muscle weakness (generalized) Peripheral vascular disease, unspecified (CMS/HCC) Lumbosacral spondylosis without myelopathy Lidia Barrios MD [address] [facility] [address] [place] [address] Phone: tel: fax: Referral ID Status Reason Start Date Expiration Date Visits Requested Visits Authorized [id number] Authorized Specialty Services Required 01/18/2025 07/20/2026 1 1 Encounter Details Date Type Department Care Team (Late st Contact Info) Description 01/18/2025 [facility] [address] [place] [address] Lidia Barrios MD [address] [place] [employer] [address] [place] [address] Muscle weakness (generalized) (Primary Dx); Peripheral vascular disease, unspecified (CMS/HCC); Lumbosacral spondylosis without myelopathy Social History Tobacco Use Types Packs/Day Years Used Date Smoking Tobacco: Never Assessed Sex and Gender Information Value Date Recorded Sex Assigned at Not on file Legal Sex Male 7:39 PM EDT Gender Identity Not on file Sexual Orientation Not on file documented as of this encounter Plan of Treatment Scheduled Referrals Name Type Priority Associated Diagnoses Orde r Schedule Ambulatory referral to Neurology Outpatient Referral Routine Muscle weakness (generalized) Peripheral vascular disease, unspecified (CMS/HCC) Lumbosacral spondylosis without myelopathy Expected: 01/18/2025 (Approximate), Expires: 07/21/2026 documented as of this encounter Visit Diagnoses Diagnosis Muscle weakness (generalized)- Primary Peripheral vascular disease, unspecified (CMS/HCC) Peripheral vascular disease, unspecified Lumbosacral spondylosis without myelopathy documented in this encounter
--- OUTSIDE RECORDS SUMMARY | 2025-03-05 14:30 | XMS_ITS | Referral Summary ---
Author Organization [employer] ([place], [place], [place], [place]) Address [address] [place] [address] Care Team Providers Care Station Detective Name Role Phone Julio C Oleary MD Primary Care Provider [phone] Allergies Active Allergy Reactions Criticality Noted Date [...] 06/30/2018 Influenza High Dose Preservative Free IM ([id number] ) 06/02/2022 Influenza Quad-qiv Non Pf 06/09/2020 Social History Tobacco Use Types Packs/Day Years [...] Date Sam rded Speak language other than [place] at home Not on file 09/09/2023 Want [...] 08/25/2023 8:08 AM EST Plan of Treatment Not on file Procedures Procedure Name Priority Date/Time Associated Diagnosis [...] - 10/11/2022 4:05 AM EST Performed at: - [facility] [address] [id number] Operating Room Specialist: Chidi Kelley PhD, Phone: [phone] us Amparo Izquierdo MD LAB BLOOD ORDERABLES Final Resul t [facility] from Last 3 Months or Most Recently Relevant to Health Maintenance Insurance [facility] [employer] Care Teams Station Detective Relationship Specialty Start Date End Date Julio C Oleary MD [address] [place] [address] [place] [address] PCP - General Family Medicine 04/18/23
--- OUTSIDE RECORDS SUMMARY | 2025-03-05 14:30 | XMS_ITS | Clinical Summary ---
Author Organization [facility] Address [address] [place] [address] Phone Care Team Providers Care Chief Meteorologist Name Role Phone Status, Fax Unavailable Conditions or Problems Problem Name Problem Code Onset Date Status Entry Date Provider Comment Standard Description Annotate DVT 839907884 (SNOMED CT) 03/15 Active 03/15 Rocky Tubbs MD Deep venous thrombosis ELEVATED CRP R79.82 (ICD-10-CM ) 03/01 Active 03/05 Andreia Yung Elevated C-reactive protein (CRP) LEUKOCYTOSIS 942855675 (SNOMED CT) 03/01 Active 03/05 Andreia W Leukocytosis ALPHA STREP B95.4 (ICD-10-CM ) 02/23 Active 03/02 Andreia W Other streptococcus as the cause of diseases classified elsewhere OBSTRUCTIVE SLEEP APNEA 96175606 (SNOMED CT) 02/20 Active 02/20 Margarita Hernandez Obstructive sleep apnea syndrome RT KNEE PYOGENIC ARTHRITIS M00.80 (ICD-10-CM ) 02/20 Active 02/20 Margarita Hernandez Arthritis due to other bacteria, unspecified joint HYPERTENSION 93045882 (SNOMED CT) 02/20 Active 02/20 Margarita Hernandez Hypertensive disorder HYPERLIPIDEMI A 64683167 (SNOMED CT) 02/20 Active 02/20 Margarita Hernandez Hyperlipidemia GERD 253834295 (SNOMED CT) 02/20 Active 02/20 Margarita Hernandez Gastroesophageal reflux disease Medications Medication Instructions Start Date Stop Date Generic Name [facility] Provider CEFTRIAXONE SODIUM 2 GM SOLR Infuse IV qd OPAT 04/02 CEFTRIAXONE SODIUM 41048694547 Toshia Darius RIZZO LOVENOX SOLUTION 03/22 ENOXAPARIN SODIUM SOLN 55168016557 Rocky Tubbs MD COUMADIN 10 MG ORAL TABLET WARFARIN SODIUM 70958858527 Rocky Tubbs MD INDOMETHACIN 50 MG CAPS 03/15 INDOMETHACIN 53371290399 Rocky Tubbs MD LANSOPRAZOLE 30 MG CPDR take 1 capsule by mouth every morning 03/15 LANSOPRAZOLE 28987624503 Rocky Tubbs MD PRAVASTATIN SODIUM 10 MG TABS take 1 tablet by mouth at bedtime for cholesterol 03/15 PRAVASTATIN SODIUM 87093948104 Rocky Tubbs MD LOVENOX SOLUTION 11/20 ENOXAPARIN SODIUM SOLN 78607553335 Rocky Tubbs MD HYDROCODONE-ACETA MINOPHEN 10-500 MG ORAL TABLET take 1 tablet by mouth every 4 hours if needed for pain 03/01 HYDROCODONE-ACETA MINOPHEN 18501085191 Rocky Tubbs MD INDOMETHACIN 50 MG CAPS 11/20 INDOMETHACIN 72621451015 Rocky Tubbs MD NABUMETONE 750 MG TABS 03/01 NABUMETONE 34148564316 Rocky Tubbs MD ZOLPIDEM TARTRATE 5 MG TABS 02/23 ZOLPIDEM TARTRATE 91650243871 Rocky Tubbs MD PROMETHAZINE HCL SOLN 02/23 PROMETHAZINE HCL SOLN 41843470487 Rocky Tubbs MD ONDANSETRON HCL 4 MG TABS 02/23 ONDANSETRON HCL 56149974493 Rocky Tubbs MD BISACODYL LAXATIVE 10 MG SUPP 02/23 BISACODYL 80189617736 Rocky Tubbs MD MILK OF MAGNESIA CONCENTRATE SUSP 02/23 MAGNESIUM HYDROXIDE SUSP 20881296873 Rocky Tubbs MD HYDROMORPHONE HCL PF SOLN 02/23 HYDROMORPHONE HCL SOLN 42948283897 Rocky Tubbs MD DIPHENHYDRAMINE HCL 25 MG TABS 02/23 DIPHENHYDRAMINE HCL 09342703583 Rocky Tubbs MD WARFARIN SODIUM 5 MG TABS 02/23 WARFARIN SODIUM 61113435990 Rocky Tubbs MD HYDROCODONE-ACETA MINOPHEN 7.5-500 MG ORAL TABLET take 1 to 2 tablets by mouth every 4 to 6 hours if needed 02/23 HYDROCODONE-ACETA MINOPHEN 21949747436 Rocky Tubbs MD INDOMETHACIN 50 MG CAPS take 1 capsule BY MOUTH EVERY 8 HOURS FOR 3 DAYS, THEN TWICE A DA... (REFER TO PRESCRIPTION NOTES). 02/23 INDOMETHACIN 72880307186 Rocky Tubbs MD ZOLPIDEM TARTRATE 5 MG TABS 11/20 ZOLPIDEM TARTRATE 52448560402 Stephenie L PROMETHAZINE HCL SOLN 02/19 PROMETHAZINE HCL SOLN 54539031367 Stephenie L ONDANSETRON HCL 4 MG TABS 02/19 ONDANSETRON HCL 20165259954 Stephenie L MILK OF MAGNESIA CONCENTRATE SUSP 10/18 MAGNESIUM HYDROXIDE SUSP 20453035931 Stephenie L HYDROMORPHONE HCL PF SOLN 02/23 HYDROMORPHONE HCL SOLN 96370226351 Stephenie L DIPHENHYDRAMINE HCL 25 MG TABS 02/23 DIPHENHYDRAMINE HCL 85781929231 Stephenie L BISACODYL LAXATIVE 10 MG SUPP 02/23 BISACODYL 43808683031 Stephenie L HYDROCODONE-ACETA MINOPHEN 7.5-500 MG ORAL TABLET take 1 to 2 tablets by mouth every 4 to 6 hours if needed 02/23 HYDROCODONE-ACETA MINOPHEN 67835578825 Stephenie L LANSOPRAZOLE 30 MG CPDR take 1 capsule by mouth every morning 11/20 LANSOPRAZOLE 99902662288 Stephenie Olivera PRAVASTATIN SODIUM 10 MG TABS take 1 tablet by mouth at bedtime for cholesterol 03/15 PRAVASTATIN SODIUM 58475836232 Stephenie lOivera WARFARIN SODIUM 5 MG TABS 11/20 WARFARIN SODIUM 81638334370 Stephenie Olivera TRAMADOL HCL 50 MG TABS take 2 tablets by mouth three times a day if needed TRAMADOL HCL 54600332375 Stephenie Olivera NABUMETONE 750 MG TABS 03/01 NABUMETONE 67149575036 Stephenie Olivera PANTOPRAZOLE SODIUM 40 MG TBEC take 1 tablet by mouth once daily PANTOPRAZOLE SODIUM 45066206952 Stephenie Olivera NIASPAN 500 MG ORAL TABLET EXTENDED RELEASE take 2 tablets by mouth at bedtime NIACIN (ANTIHYPERLIPIDEM IC) 56643195139 Stephenie Olivera INDOMETHACIN 50 MG CAPS take 1 capsule BY MOUTH EVERY 8 HOURS FOR 3 DAYS, THEN TWICE A DA... (REFER TO PRESCRIPTION NOTES). 11/20 INDOMETHACIN 30966854820 Stephenie Olivera HYDROCODONE-ACETA MINOPHEN 10-500 MG ORAL TABLET take 1 tablet by mouth every 4 hours if needed for pain 03/01 HYDROCODONE-ACETA MINOPHEN 20613529535 Stephenie Olivera ENOXAPARIN SODIUM 40 MG/0.4ML SUBCUTANEOUS SOLUTION inject subcutaneously every 24 hours 11/20 ENOXAPARIN SODIUM 36016806900 Stephenie Olivera CEFTRIAXONE SODIUM 2 GM SOLR Infuse IV qd OPAT 04/02 CEFTRIAXONE SODIUM 90646233400 Nicole Matos RN Medications Administered No information available. Allergies, Adverse Reactions, Alerts Allergy Name Reaction Description Start Date Severity Statu s Provider NAPROXEN Critical Active Stephenie Olivera Results Date Name Value Unit Range Flag Description Clinical Lists Update: Prelo ad SMOK STATUS never smoker Tobacco smoking status Lab Report: Basic Metabolic Panel GFR EST 92 mL/min estimated isaura merular filtration rate Lab Report: Comprehensive Me tabolic Panel ANIONGAP 11 mmol/L 3-11 N anion gap, s neo GFRC 110 mL/min/1. 73m2 Glomerular Filtration Rate Calculation ALBUMIN 4.1 g/dL 3.4-4.8 N Albumin [Mass/volume] in Serum or Plasma PROTEIN, TOT 8.0 g/dL 6.4-8.3 N Protein [Mass/volume] in Serum or Plasma BILI TOTAL 0.3 mg/dL 0.3-1.2 N Bilirubin. total [Mass/volume] in Serum or Plasma SGPT (ALT) 27 U/L 7-40 N Alanine aminotransferase [Enzymatic activity/volume] in Serum or Plasma SGOT (AST) 22 U/L 8-33 N Aspartate aminotransferase [Enzymatic activity/volume] in Serum or Plasma ALK PHOS 72 U/L 25-100 N Alkaline luan sphatase [Enzymatic activity/volume] in Blood CALCIUM 9.2 mg/dL 8.7-10.4 N Calcium [Moles/volume] in Serum or Plasma CO2 24 mmol/L 20-31 N Carbon dioxid e, total [Moles/volume] in Venous blood CHLORIDE 111 mmol/L 98-107 H Chloride [Moles/volume] in Serum or Plasma POTASSIUM 4.1 mmol/L 3.4-5.4 N Potassium [Moles/volume] in Serum or Plasma SODIUM 146 mmol/L 136-145 H Sodium [Moles/volume] in Serum or Plasma CREATININE 0.8 mg/dL 0.6-1.3 N Creatinine [Mass/volume] in Serum or Plasma BUN 10 mg/dL 6-20 N Urea nitrogen [Mass/volume] in Serum or Plasma GLUCOSE SER 121 mg/dL 70-100 H Glucose [Mass/volume] in Serum or Plasma Office Visit: f/u r 12 MEDS REVIEW Done Documenta tion of current medications (procedure) Lab Report: CBC w Auto Diff IMM GRANU % 0.5 % 0.0-0.6 N Immature granulocytes/100 leukocytes in Blood BASOPHIL % 1.0 % 0.0-1.0 N Basophils/ 100 leukocytes in Blood by Manual count % EOS AUTO 2.5 % 0.0-3.0 N Eosinophil s/100 leukocytes in Blood by Automated count MONOCYTE BF 10.2 % 0.0-12.0 N monocyte s as percent of body fluid leukocytes LYMPHS % 18.4 % 24.0-44.0 L Lymphocyte s/100 leukocytes in Blood by Automated count PMN % 67.4 % 41.0-71.0 N Neutrophils /100 leukocytes in Blood by Automated count BASOABSOLMAN 0.08 K/MCL {Cells}/u L 0.00-0.20 N basophils, absolute, manual EOS ABSLT 0.21 10*3/uL 0.10-0.30 N Eosinophi ls [#/volume] in Blood MONOCYTABMAN 0.86 K/MCL {Cells}/u L 0.00-1.00 N monocytes, absolute, manual LYMPHSABSMAN 1.55 K/MCL {Cells}/u L 0.60-4.80 N lymphocytes, absolute, manual ABS NEUTROPH 5.67 10*3/uL 1.50-8.30 N Neutro phils [#/volume] in Blood PLATELETS 381 10*3/mm3 150-450 N Platelets [#/volume] in Blood by Automated count RDW_ 13.4 11.3-14.5 N RDW, no uni ts MCHC 33.1 G/DL 32.0-36.0 N MCHC [Mass/ volume] by Automated count MCH 31.0 pg 27.0-31.0 N MCH [Entiti c mass] by Automated count MCV 93.6 fL 80.0-99.0 N MCV [Entiti c volume] by Automated count HCT 42.3 % 38.9-50.9 N Hematocrit [Volume Fraction] of Blood by Automated count HGB 14.0 g/dL 13.1-17.5 N Hemoglobin [Mass/volume] in Blood RBC 4.52 M/MCL 10*6/mm3 4.20-5.76 N Erythro cytes [#/volume] in Blood by Automated count WBC 8.41 10*3/mm3 3.50-10.8 0 N Leukocytes [#/volume] in Blood by Automated count Lab Report: ESR (Sed Rate) ESR 75 mm/h 0-20 H Erythrocyte sedimentation rate by Westergren method Lab Report: C-Reactive Prote in CRPCARDRISK 5.700 mg/L 0.000-10. 0 N C reactive protein [Mass/volume] in Serum or Plasma Plan of Care Type Date Detail Pending order Discontinue IV a ntibiotics Pending order PICC Removal Pending order CBC with Differe ntial Pending order C- reactive prot ein Pending order Sedimentation Ra te (ESR) Pending order Continue IV anti biotics Pending order Weekly PICC Line Care Pending order Continue IV anti biotics Pending order BMP Pending order CBC with Differe ntial Pending order C- reactive prot ein Pending order Sedimentation Ra te (ESR) Pending order Continue IV anti biotics Pending order BMP Pending order CBC with Differe ntial Pending order C- reactive prot ein Pending order Sedimentation Ra te (ESR) Pending order Continue IV anti biotics Pending order Weekly Central L ine Care Pending order BMP Pending order CBC with Differe ntial Pending order Sedimentation Ra te (ESR) Pending order C- reactive prot ein Procedures Code Procedure Name Date Entry Date CPT-DC Discontinue IV antibiotics 2 CPT-PICREM PICC Removal CPT-37768 CBC with Differential 04/02 CPT-65623 C- reactive protein CPT-78309 Sedimentation Rate (ESR) 201 10/28/11 CPT-ca Continue IV antibiotics 2012 CPT-wpc Weekly PICC Line Care 03/22 CPT-ca Continue IV antibiotics 2012 CPT-71088 BMP CPT-90385 CBC with Differential 03/15 CPT-07658 C- reactive protein CPT-88286 Sedimentation Rate (ESR) 201 10/26/24 CPT-ca Continue IV antibiotics 2012 CPT-21392 BMP CPT-21314 CBC with Differential 03/01 CPT-96266 C- reactive protein CPT-97565 Sedimentation Rate (ESR) 201 10/26/10 CPT-ca Continue IV antibiotics 2012 CPT-wclc Weekly Central Line Care 201 10/26/04 CPT-05541 BMP CPT-93733 CBC with Differential 02/23 CPT-57013 Sedimentation Rate (ESR) 201 10/26/04 CPT-68410 C- reactive protein Vital Signs Date Name Value Unit Description BMI (Body Mass Index) 33.48 kg/m2 Bod y Mass Index (Ratio) Body Temperature 98.2 [degF] temperat ure E&M BP Diastolic 80 mm[Hg] blood pressu re, diastolic BP Systolic 118 mm[Hg] blood pressur e, systolic Heart Rate 72 /min pulse rate Height 72 [in_us] height E&M Respiratory Rate 16 /min respirat ory rate E&M Weight Measured 246 [lb_av] weight E& M Weight Measured 246 [lb_av] weight E& M Immunizations No information available. Advance Directives No information available.
--- OUTSIDE RECORDS SUMMARY | 2025-03-05 14:30 | XMS_ITS | Encounter Summary ---
Author Organization [employer] ([place], [place], [place], [place]) Address [address] [place] [address] Care Team Providers Care Tester Printed Circuit Boards Name Role Phone Julio C Oleary MD Primary Care Provider +1- [phone] Reason for Visit * Reason Comments Medication Refill Encounter Details Date Type Department Care Team ([facility] st Contact Info) Description 12/27/2023 Refill [facility] Rheumatology [address] [place] [address] Amparo Izquierdo MD [address] [facility] [address] [place] [address] Other osteoarthritis involving multiple joints; Itching Social History Tobacco Use Types Packs/Day Years [...] Date Sam rded Speak language other than Irish at home Not on file 09/09/2023 Want [...] Diagnoses Diagnosis Other osteoarthritis involving multiple joints Itching Unspecified pruritic disorder documented in this encounter Care Teams Tester Printed Circuit Boards Relationship Specialty Start Date End Date Julio C Oleary MD [address] [place] [address] PCP - General Family Medicine 04/18/23 documented as of this encounter
--- OUTSIDE RECORDS SUMMARY | 2025-03-05 14:30 | XMS_ITS | Encounter Summary ---
Author Organization [employer] ([place], [place], [place], [place]) Address [address] [place] [address] Care Team Providers Care Hadoop Architect Name Role Phone Julio C Oleary MD Primary Care Provider +1- [phone] Reason for Visit * Reason Comments Medication Refill Encounter Details Date Type Department Care Team ([facility] Contact Info) Description 01/15/2024 Refill [facility] Rheumatology [address] [place] [address] Amparo Izquierdo MD [address] [facility] [address] [place] [address] Seronegative rheumatoid arthritis (HCC) Social History Tobacco [...] Date Sam rded Speak language other than Albanian at home Not on file 09/09/2023 Want [...] arthritis documented in this encounter Care Teams Hadoop Architect Relationship Specialty Start Date End Date Julio C Oleary MD [address] [place] [address] PCP - General Family Medicine 04/18/23 documented as of this encounter
--- NOTE | 2025-03-05 14:32 | XR_ITS ---
FINAL REPORT CLINICAL HISTORY: right knee pain COMPARISON: None FINDINGS: Three views of the right knee were obtained. There is no acute fracture. There are severe degenerative changes. Degenerative lateral subluxation is noted. There is no significant joint effusion. There is no acute soft tissue abnormality. IMPRESSION: Advanced osteoarthritic changes without acute findings. Reviewed, Interpreted and Dictated by Elizabeth Rivera MD Transcribed by Xochitl Santizo Authenticated and [facility]
== END 2025-03-05 23:59 | disposition home or self-care (01) ==
LOC: RAD 14:28
PROVIDERS: PCP Family Medicine; Visit Provider Physician Assistant
DX: M17.11 Unilateral primary osteoarthritis, right knee (principal)
CPT/HCPCS: 73562

== ENCOUNTER 2025-04-04 09:47 | Outpatient (POV) | payer MEDICARE, SELFPAY ==
--- OUTSIDE RECORDS SUMMARY | 2025-04-04 09:50 | XMS_ITS | Encounter Summary ---
Author Organization [employer] ([place], [place], [place], [place]) Address [address] [place] [address] Care Team Providers Care Establishment Guide Name Role Phone Julio C Oleary MD Primary Care Provider +1- [phone] Reason for Visit * Reason Comments Medication Refill Encounter Details Date Type Department Care Team ([facility] Contact Info) Description 08/19/2023 Refill [facility] [address] [address] [place] [address] Amparo Izquierdo MD [address] [facility] [address] [place], [place] [address] Other osteoarthritis involving multiple joints Social History [...] joints documented in this encounter Care Teams Establishment Guide Relationship Specialty Start Date End Date Julio C Oleary MD [address] [place] [address] PCP - General Family Medicine 04/18/23 documented as of this encounter
--- OUTSIDE RECORDS SUMMARY | 2025-04-04 09:50 | XMS_ITS | Clinical Summary ---
Author Organization [facility] Address [address] [place] [address] Phone Care Team Providers Care Oracle Technical Developer Name Role Phone Status, Fax Unavailable Conditions or Problems Problem Name Problem Code Onset Date Status Entry Date Provider Comment Standard Description Annotate DVT 136640114 (SNOMED CT) 03/15 Active 03/15 Rocky Tubbs MD Deep venous thrombosis ELEVATED CRP R79.82 (ICD-10-CM ) 03/01 Active 03/05 Andreia Yung Elevated C-reactive protein (CRP) LEUKOCYTOSIS 136212324 (SNOMED CT) 03/01 Active 03/05 Andreia W Leukocytosis ALPHA STREP B95.4 (ICD-10-CM ) 02/23 Active 03/02 Andreia W Other streptococcus as the cause of diseases classified elsewhere OBSTRUCTIVE SLEEP APNEA 36511053 (SNOMED CT) 02/20 Active 02/20 Margarita Hernandez Obstructive sleep apnea syndrome RT KNEE PYOGENIC ARTHRITIS M00.80 (ICD-10-CM ) 02/20 Active 02/20 Margarita Hernandez Arthritis due to other bacteria, unspecified joint HYPERTENSION 34743028 (SNOMED CT) 02/20 Active 02/20 Margarita Hernandez Hypertensive disorder HYPERLIPIDEMI A 25385054 (SNOMED CT) 02/20 Active 02/20 Margarita Hernandez Hyperlipidemia GERD 621858308 (SNOMED CT) 02/20 Active 02/20 Margarita Hernandez Gastroesophageal reflux disease Medications Medication Instructions Start Date Stop Date Generic Name [facility] Provider CEFTRIAXONE SODIUM 2 GM SOLR Infuse IV qd OPAT 04/02 CEFTRIAXONE SODIUM 66075754460 Toshia Darius RIZZO LOVENOX SOLUTION 03/22 ENOXAPARIN SODIUM SOLN 86863276570 Rocky Tubbs MD COUMADIN 10 MG ORAL TABLET WARFARIN SODIUM 16105798632 Rocky Tubbs MD INDOMETHACIN 50 MG CAPS 03/15 INDOMETHACIN 29558378097 Rocky Tubbs MD LANSOPRAZOLE 30 MG CPDR take 1 capsule by mouth every morning 03/15 LANSOPRAZOLE 90580879208 Rocky Tubbs MD PRAVASTATIN SODIUM 10 MG TABS take 1 tablet by mouth at bedtime for cholesterol 03/15 PRAVASTATIN SODIUM 78609792434 Rocky Tubbs MD LOVENOX SOLUTION 11/20 ENOXAPARIN SODIUM SOLN 68052274772 Rocky Tubbs MD HYDROCODONE-ACETA MINOPHEN 10-500 MG ORAL TABLET take 1 tablet by mouth every 4 hours if needed for pain 03/01 HYDROCODONE-ACETA MINOPHEN 26358252744 Rocky Tubbs MD INDOMETHACIN 50 MG CAPS 11/20 INDOMETHACIN 86140987365 Rocky Tubbs MD NABUMETONE 750 MG TABS 03/01 NABUMETONE 88479951102 Rocky Tubbs MD ZOLPIDEM TARTRATE 5 MG TABS 02/23 ZOLPIDEM TARTRATE 98840590157 Rocky Tubbs MD PROMETHAZINE HCL SOLN 02/23 PROMETHAZINE HCL SOLN 44259214168 Rocky Tubbs MD ONDANSETRON HCL 4 MG TABS 02/23 ONDANSETRON HCL 18131751866 Rocky Tubbs MD BISACODYL LAXATIVE 10 MG SUPP 02/23 BISACODYL 63291717816 Rocky Tubbs MD MILK OF MAGNESIA CONCENTRATE SUSP 02/23 MAGNESIUM HYDROXIDE SUSP 95656268386 Rocky Tubbs MD HYDROMORPHONE HCL PF SOLN 02/23 HYDROMORPHONE HCL SOLN 30750389665 Rocky Tubbs MD DIPHENHYDRAMINE HCL 25 MG TABS 02/23 DIPHENHYDRAMINE HCL 61466932113 Rocky Tubbs MD WARFARIN SODIUM 5 MG TABS 02/23 WARFARIN SODIUM 65255765397 Rocky Tubbs MD HYDROCODONE-ACETA MINOPHEN 7.5-500 MG ORAL TABLET take 1 to 2 tablets by mouth every 4 to 6 hours if needed 02/23 HYDROCODONE-ACETA MINOPHEN 25144648208 Rocky Tubbs MD INDOMETHACIN 50 MG CAPS take 1 capsule BY MOUTH EVERY 8 HOURS FOR 3 DAYS, THEN TWICE A DA... (REFER TO PRESCRIPTION NOTES). 02/23 INDOMETHACIN 62673204089 Rocky Tubbs MD ZOLPIDEM TARTRATE 5 MG TABS 11/20 ZOLPIDEM TARTRATE 82184100251 Stephenie L PROMETHAZINE HCL SOLN 02/19 PROMETHAZINE HCL SOLN 94416142546 Stephenie L ONDANSETRON HCL 4 MG TABS 02/19 ONDANSETRON HCL 96087163067 Stephenie L MILK OF MAGNESIA CONCENTRATE SUSP 10/18 MAGNESIUM HYDROXIDE SUSP 84308021106 Stephenie L HYDROMORPHONE HCL PF SOLN 02/23 HYDROMORPHONE HCL SOLN 11221991342 Stephenie L DIPHENHYDRAMINE HCL 25 MG TABS 02/23 DIPHENHYDRAMINE HCL 27215039627 Stephenie L BISACODYL LAXATIVE 10 MG SUPP 02/23 BISACODYL 78752704523 Stephenie L HYDROCODONE-ACETA MINOPHEN 7.5-500 MG ORAL TABLET take 1 to 2 tablets by mouth every 4 to 6 hours if needed 02/23 HYDROCODONE-ACETA MINOPHEN 42997534656 Stephenie L LANSOPRAZOLE 30 MG CPDR take 1 capsule by mouth every morning 11/20 LANSOPRAZOLE 08893259161 Stephenie Olivera PRAVASTATIN SODIUM 10 MG TABS take 1 tablet by mouth at bedtime for cholesterol 03/15 PRAVASTATIN SODIUM 73919580856 Stephenie Olivera WARFARIN SODIUM 5 MG TABS 11/20 WARFARIN SODIUM 57988893302 Stephenie Olivera TRAMADOL HCL 50 MG TABS take 2 tablets by mouth three times a day if needed TRAMADOL HCL 52544273136 Stephenie Olivera NABUMETONE 750 MG TABS 03/01 NABUMETONE 60486581370 Stephenie Olivera PANTOPRAZOLE SODIUM 40 MG TBEC take 1 tablet by mouth once daily PANTOPRAZOLE SODIUM 94463513676 Stephenie Olivera NIASPAN 500 MG ORAL TABLET EXTENDED RELEASE take 2 tablets by mouth at bedtime NIACIN (ANTIHYPERLIPIDEM IC) 69838167723 Stephenie Olivera INDOMETHACIN 50 MG CAPS take 1 capsule BY MOUTH EVERY 8 HOURS FOR 3 DAYS, THEN TWICE A DA... (REFER TO PRESCRIPTION NOTES). 11/20 INDOMETHACIN 16774332376 Stephenie Olivera HYDROCODONE-ACETA MINOPHEN 10-500 MG ORAL TABLET take 1 tablet by mouth every 4 hours if needed for pain 03/01 HYDROCODONE-ACETA MINOPHEN 77752910758 Stephenie Olivera ENOXAPARIN SODIUM 40 MG/0.4ML SUBCUTANEOUS SOLUTION inject subcutaneously every 24 hours 11/20 ENOXAPARIN SODIUM 69487705351 Stephenie Olivera CEFTRIAXONE SODIUM 2 GM SOLR Infuse IV qd OPAT 04/02 CEFTRIAXONE SODIUM 49693279862 Nicole Matos RN Medications Administered No information [...] Discontinue IV antibiotics 2 CPT-PICREM PICC Removal CPT-72025 CBC with Differential 04/02 CPT-39682 C- reactive protein CPT-75332 Sedimentation Rate (ESR) 201 10/28/11 CPT-ca Continue IV antibiotics 2012 CPT-wpc Weekly PICC Line Care 03/22 CPT-ca Continue IV antibiotics 2012 CPT-89341 BMP CPT-58338 CBC with Differential 03/15 CPT-06645 C- reactive protein CPT-94875 Sedimentation Rate (ESR) 201 10/26/24 CPT-ca Continue IV antibiotics 2012 CPT-77180 BMP CPT-88645 CBC with Differential 03/01 CPT-05404 C- reactive protein CPT-49459 Sedimentation Rate (ESR) 201 10/26/10 CPT-ca Continue IV antibiotics 2012 CPT-wclc Weekly Central Line Care 201 10/26/04 CPT-39351 BMP CPT-37970 CBC with Differential 02/23 CPT-59805 Sedimentation Rate (ESR) 201 10/26/04 CPT-91277 C- reactive protein Vital Signs Date Name [...]
--- OUTSIDE RECORDS SUMMARY | 2025-04-04 09:50 | XMS_ITS | Encounter Summary ---
Author Organization [employer] ([place], [place], [place], [place]) Address [address] [place] [address] Care Team Providers Care Instructional Assistant Name Role Phone Julio C Oleary MD Primary Care Provider +1- [phone] Reason for Visit * Reason Comments Medication Refill Encounter Details Date Type Department Care Team ([facility] st Contact Info) Description 12/27/2023 Refill [facility] Rheumatology [address] [place] [address] Amparo Izquierdo MD [address] [facility] [address] [place] [address] Other osteoarthritis involving multiple joints; Itching Social [...] Date Sam rded Speak language other than Danish at home Not on file 09/09/2023 Want [...] disorder documented in this encounter Care Teams Instructional Assistant Relationship Specialty Start Date End Date Julio C Oleary MD [address] [place] [address] PCP - General Family Medicine 04/18/23 documented as of this encounter
--- OUTSIDE RECORDS SUMMARY | 2025-04-04 09:50 | XMS_ITS | Encounter Summary ---
Author Organization [employer] ([place], [place], [place], [place]) Address [address] [place] [address] Care Team Providers Care Supervising Film Or Videotape Editor Name Role Phone Julio C Oleary MD Primary Care Provider +1- [phone] Reason for Visit * Reason Comments Medication Refill Encounter Details Date Type Department Care Team ([facility] Contact Info) Description 01/08/2024 Refill [facility] Rheumatology [address] [place] [address] Amparo Izquierdo MD [address] [facility] [address] [place] [address] Seronegative rheumatoid arthritis (HCC) Social History Tobacco [...] Date Sam rded Speak language other than Georgian at home Not on file 09/09/2023 Want [...] arthritis documented in this encounter Care Teams Supervising Film Or Videotape Editor Relationship Specialty Start Date End Date Julio C Oleary MD [address] [place] [address] PCP - General Family Medicine 04/18/23 documented as of this encounter
--- OUTSIDE RECORDS SUMMARY | 2025-04-04 09:50 | XMS_ITS | Referral Summary ---
Author Organization [employer] ([place], [place], [place], [place]) Address [address] [place] [address] Care Team Providers Care Airfield Services Officer Name Role Phone Julio C Oleary MD Primary Care Provider [phone]- [phone] Allergies Active Allergy Reactions Criticality Noted Date [...] 06/30/2018 Influenza High Dose Preservative Free IM ([id number] ) 06/02/2022 Influenza Quad-qiv Non Pf 06/09/2020 [...] Date Sam rded Speak language other than Liberian at home Not on file 09/09/2023 Want [...] 4:05 AM EST Performed at: - [facility] [address] [id number] Food Safety Manager: Chidi Kelley PhD, Phone: [phone] us Amparo Izquierdo MD LAB BLOOD ORDERABLES Final Resul t [facility] from Last 3 Months or Most Recently Relevant to Health Maintenance Insurance [facility] [employer] O MAP Care Teams Airfield Services Officer Relationship Specialty Start Date End Date Julio C Oleary MD [address] [place] [address] PCP - General Family Medicine 04/18/23
--- OUTSIDE RECORDS SUMMARY | 2025-04-04 09:50 | XMS_ITS | Encounter Summary ---
Author Organization [employer] ([place], [place], [place], [place]) Address [address] [place] [address] Care Team Providers Care Correspondence Specialist Name Role Phone Julio C Oleary MD Primary Care Provider [phone] Reason for Visit * Reason Comments Medication Refill Encounter Details Date Type Department Care Team ([facility] Contact Info) Description 01/15/2024 Refill [facility] Rheumatology [address] [place] [address] Amparo Izquierdo MD [address] [facility] [address] [place] [address] Seronegative rheumatoid arthritis (HCC) Social History Tobacco [...] Date Sam rded Speak language other than Romansh at home Not on file 09/09/2023 Want [...] arthritis documented in this encounter Care Teams Correspondence Specialist Relationship Specialty Start Date End Date Julio C Oleary MD [address] [place] [address] PCP - General Family Medicine 04/18/23 documented as of this encounter
--- OUTSIDE RECORDS SUMMARY | 2025-04-04 09:50 | XMS_ITS | Encounter Summary ---
Author Organization [employer] ([place], [place], [place], [place]) Address [address] [place] [address] Care Team Providers Care Convention Planner Name Role Phone Julio C Oleary MD Primary Care Provider [phone]- [phone] Reason for Visit * Reason Comments Medication Refill Encounter Details Date Type Department Care Team ([facility] Contact Info) Description 12/18/2023 Refill [facility] Rheumatology [address] [place] [address] Amparo Izquierdo MD [address] [facility] [address] [place] [address] Other osteoarthritis involving multiple joints Social History [...] Date Sam rded Speak language other than Qatari at home Not on file 09/09/2023 Want [...] joints documented in this encounter Care Teams Convention Planner Relationship Specialty Start Date End Date Julio C Oleary MD [address] [place] [address] PCP - General Family Medicine 04/18/23 documented as of this encounter
--- OUTSIDE RECORDS SUMMARY | 2025-04-04 09:51 | XMS_ITS | Clinical Summary ---
Author Organization [employer] ([place], [place], [place], [place]) Address [address] [place] [address] Care Team Providers Care Roller Die Cutting Machine Operator Name Role Phone Julio C Oleary MD Primary Care Provider +1- [phone] Allergies Active Allergy Reactions Criticality Noted Date [...] 06/30/2018 Influenza High Dose Preservative Free IM ([id number] ) 06/02/2022 Influenza Quad-qiv Non Pf 06/09/2020 [...] Date Sam rded Speak language other than Cambodian at home Not on file 09/09/2023 Want [...] 4:05 AM EST Performed at: 01 - [facility] [id number] Pigment Supplier: Chidi Kelley PhD, Phone: [phone] us Amparo Izquierdo MD LAB BLOOD ORDERABLES Final Resul t [facility] from Last 3 Months or Most Recently Relevant to Health Maintenance Insurance [facility] [employer] Care Teams Roller Die Cutting Machine Operator Relationship Specialty Start Date End Date Julio C Oleary MD [address] [place] [address] PCP - General Family Medicine 04/18/23
--- OUTSIDE RECORDS SUMMARY | 2025-04-04 09:51 | XMS_ITS | Encounter Summary ---
Author Organization [employer] ([place], [place], [place], [place]) Address [address] [place] [address] Care Team Providers Care Chart Writer Name Role Phone LanesboroBecky lang JEANETTE Primary Care Provider [phone] Julio C Oleary MD Primary Care Provider [phone] Reason for Visit * Reason Onset Date Comments Medication Problem 01/13/2023 Encounter Details Date Type Department Care Team (Late st Contact Info) Description 01/13/2023 Telephone [facility] Rheumatology [address] [place] [address] Amparo Izquierdo MD [address] [facility] [address] [place] [address] Medication Problem Social History Tobacco Use Types [...] Taper. Would Like it to go to [facility]. * Telephone Encounter - William June [...] mentioned it is not helping at all. [phone] documented in this encounter Plan of Treatment Not on file documented as of this encounter Visit Diagnoses Not on filedocumented in this encounter Care Teams Chart Writer Relationship Specialty Start Date End Date Becky Ramirez APRN [address] [place] [address] PCP - General Nurse Practitioner 09/06/22 04/17/23 Julio C Oleayr MD [address] [place] [address] PCP - General Family Medicine 04/18/23 documented as of this encounter
--- OUTSIDE RECORDS SUMMARY | 2025-04-04 09:51 | XMS_ITS | Clinical Summary ---
Author Organization [facility] Address [address] [place] [address] Care Team Providers Care Prescription Clerk Lenses Name Role Phone Julio C Oleary MD Primary Care Provider [phone]- [phone] Allergies Active Allergy Reactions Criticality Noted Date Comments Naproxen Itching Low 10/04/2022 Medications traMADol (ULTRAM) 50 MG tablet Take 1 tablet by mouth Every 6 (Six) Hours As Needed. 0 11/01/2017 Active Flaxseed, Linseed, (FLAXSEED OIL PO) Take by mouth. Active pantoprazole (PROTONIX) 40 MG EC tablet Take 1 tablet by mouth Daily. 09/08/2022 Active traZODone (DESYREL) 150 MG tablet Take 1 tablet by mouth Every Night. 90 tablet 1 11/16/2023 Active irbesartan-hydro chlorothiazide (AVALIDE) 150-12.5 MG tablet Take 1 tablet by mouth Daily. 04/25/2024 Active metoprolol succinate XL (TOPROL-XL) 50 MG 24 hr tablet Take 1 tablet by mouth Daily. 02/21/2024 Active nabumetone (RELAFEN) 750 MG tablet Take 1 tablet by mouth Every 12 (Twelve) Hours. 07/21/2024 Active bumetanide (BUMEX) 1 MG tablet Take 1 tablet by mouth Daily. 10/18/2024 Active Active Problems Problem Noted Date Diagnosed Date Insomnia 11/16/2023 CSA (central sleep apnea) 01/12/2023 Assessment & Plan (12/13/2024 9:04 AM EDT): Patient has a baseline AHI of 46. This is severe sleep apnea. Download shows suboptimal compliance and good control. We have discussed his sleep risk and patient is encouraged to increase his usage of his BiPAP. Patient reports he is a belly sleeper and is difficult to wear the mask sleeping on his belly because it leaks. Patient is receiving benefit from PAP therapy. Plan to continue current treatment. Prescription sent to DME of patient choice to change his fullface mask to an air fit F30i. Follow-up in 6 months or sooner for any BRAD or PAP concerns. Assessment & Plan (09/13/2024 9:24 AM EST): Patient has a baseline AHI of 46. This is severe sleep apnea. Download shows suboptimal compliance and suboptimal control. AHI was 12 at last visit but has improved to 9. Patient has been encouraged to increase his PAP usage. Sleep risk such as increased risk for blood clots and sleep . Patient verbalizes understanding. Pressure adjustments were not made. [employer] company has been called to reset his pressures. Patient states that he comes in from work and sits down and the next thing he knows he is asleep. He said most times he does not have time to even put his PAP device on because he falls asleep that quick. Patient to follow-up in 3 months or sooner for any BRAD or PAP concerns. Assessment & Plan (08/09/2024 12:13 PM EST): Patient has a baseline AHI of 46. This is severe sleep apnea. Titration study has been reviewed with patient in detail. Download shows suboptimal compliance and suboptimal control with an AHI of 12. Reports he has chronic pain in his shoulders that keeps him from sleeping. He reports that the trazodone does help but he does not stay asleep. He states that he will take the trazodone about an hour before he goes to bed and within 3 hours he is awake. Patient is receiving benefit from PAP therapy and we plan to continue PAP therapy. Pressure adjustment auto BiPAP 19/15 cm PS 4 sent to DME of patient choice. Patient to follow-up in 4 weeks or sooner for any BRAD or PAP concerns. Assessment & Plan (05/18/2024 1:00 PM EDT): Central sleep apnea noted on an updated HST 11/16/2022. Titration study 02/16/2023 showed reemergent centrals with higher pressures. Encouraged patient to increase usage of CPAP therapy. Plan a titration study to consider BiPAP to BiPAP ST. Cardiomyopathy, hypertensive, without heart fail ure 01/12/2023 Obesity 01/12/2023 Pulmonary embolism 01/12/2023 Overview (01/12/2023): Description: A. History of pulmonary embolism October 2011, with subsequent Coumadin therapy x 1 year. Pulmonary nodule 01/12/2023 Overview (01/12/2023): Description: A. Stable bilateral diffuse parenchymal nodules, most prominent in the right upper lobe on CT scan of 09/11/2012 compared with prior scan of 01/31/2012. Initial CT scan when we started following the nodules was 09/11/12. He will need followup until August or September 2013 2 demonstrates stability of the nodules. 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 DVTs in 2002 and in 2011. Other hyperlipidemia History of deep vein thrombosis (DVT) of lower e xtremity Obstructive sleep apnea (adult) (pediatric) Overview (01/12/2023): AHI 20 Assessment & Plan (12/13/2024 9:04 AM EDT): Patient had an updated HST 11/16/2022 which showed a baseline AHI of 46. This is severe sleep apnea. Centrals were also noted on HST with Newton-Becker breathing. Download shows suboptimal compliance with good control. Is receiving benefit from PAP therapy. Plan to continue current treatment. Assessment & Plan (05/18/2024 1:04 PM EDT): Patient had an updated HST 11/16/2022 which showed a baseline AHI of 46. This is severe sleep apnea. Centrals were also noted on HST with Newton-Becker breathing. Download shows suboptimal compliance with good control. Patient reports he is having difficulty tolerating his BiPAP therapy. He states that he wakes up and he has pulled his mask off. He states once he wakes up he just turns it off and goes back to sleep. Patient reports restless sleep and frequent awakenings. Patient is agreeable to a titration study to consider BiPAP to BiPAP ST. Patient is receiving benefit from PAP therapy. Plan to continue current treatment. Plan titration study to consider BiPAP to BiPAP ST. Chronic pain Septic arthritis Overview (01/12/2023): Description: A. Right knee fluid positive for alpha hemolytic Streptococcus and reported strep viridans, followed by infectious disease. Status post arthroscopic irrigation and debridement 02/13/2013. Essential (primary) hypertension Resolved Problems Problem Noted Date Diagnosed Date Resolved Date DVT (deep venous thrombosis) 01/12/2023 Immunizations Immunization Administration Dates Next Due 31-influenza Vac Quardvalent Preservativ 020 COVID-19 (MODERNA) 1st,2nd,3rd Dose Monovalent 0 11/13/2020,10/16/2020 COVID-19 (MODERNA) Monovalent Original Booster 1 10/07/2020 FLUAD TRI 65YR+ 06/30/2018 Fluzone High-Dose 65+yrs 06/02/2022 Family History Medical History Relation Name Comments Diabetes Father Heart attack Father Diabetes Mother Diabetes Sister Relation Name Status Comments Brother Alive Father Mother Alive Sister Alive Social History Tobacco Use Types Packs/Day Years Used Date Smoking Tobacco: Never Passive Smoke Exposure: Never Smokeless Tobacco: Never Tobacco Cessation:Counseling Given: Not Answered Alcohol Use Standard Drinks/Week Comments No 0 (1 standard drink = 0.6 oz pur e alcohol) Sex and Gender Information Value Date Recorded Sex Assigned at Not on file Legal Sex Male 10:33 AM EDT Gender Identity Not on file Sexual Orientation Not on file Occupation Industry Job Start Date Job End Date RETIRED Not on file Not on file Not on file Last Filed Vital Signs Vital Sign Reading Time Taken Comments Blood Pressure 124/86 12/13/2024 8:28 AM EDT Pulse 61 12/13/2024 8:28 AM EDT Temperature 36.8 C (98.2 F) 06/12/2013 11:39 AM EDT Respiratory Rate 16 06/12/2013 11:39 AM EDT Oxygen Saturation 94% 12/13/2024 8:28 AM EDT Inhaled Oxygen Concentration - - Weight 147 kg (323 lb 6.4 oz) 12/13/2024 8:28 AM EDT Height 182.9 cm (6') 12/13/2024 8:28 AM EDT Body Mass Index 43.86 12/13/2024 8:28 AM EDT Plan of Treatment Upcoming Encounters Date Type Department Care Team (Late st Contact Info) Description 05/23/2025 8:30 AM EDT Office Visit [facility] CARDIOLOGY [address] [place] [address] Seivers, April W, NURSERY MANAGER [address] [place] [address] Health Maintenance Due Date Last Done Comments LIPID PANEL 1955 COLOGUARD 11/06/2000 COLON CANCER SCREENING 5 YEA R SIGMOIDOSCOPY 11/06/2000 CT COLONOGRAPHY 11/06/2000 FECAL OCCULT BLOOD TEST 11/06/2000 FIT Testing (1 year) 11/06/2000 ANNUAL WELLNESS VISIT 12/05/2017 COLONOSCOPY 11/17/2020 11/17/2010, 11/16/2005 COLORECTAL CANCER SCREENING 11/17/2020 COVID-19 Vaccine (2023-2 5 season) 2024 08/06/2021, 11/13/2020, 10/16/2020 INFLUENZA VACCINE 05/22/2025 07/06/2023, , 06/09/2020, Additional history exists TDAP/TD VACCINES (3 - Td or Tdap) 10/06/2033 024, 09/14/2011 ZOSTER VACCINE Completed 06/12/2019, 05/0 08/2018, 10/14/2017 HEPATITIS C SCREENING Completed 10/04/2022 Pneumococcal Vaccine 50+ Completed 024, 05/19/2021, 10/04/2016, Additional history exists Insurance [employer] HMO Care Teams Prescription Clerk Lenses Relationship Specialty Start Date End Date Julio C Oleary MD [address] [place] [address] PCP - General Family Medicine 02/23/23
--- OUTSIDE RECORDS SUMMARY | 2025-04-04 09:51 | XMS_ITS | Clinical Summary ---
Author Organization Healthcare Address [address] [place] [address] Care Team Providers Care Tie Maker Name Role Phone Unavailable Primary Care Provider Unavailabl e Encounters Date Type Department Care Team Description 01/18/2025 Community Orders [facility] [address] [place] [address] Lidia Barrios MD Muscle weakness (generalized) (Primary [...] Orientation Not on file Plan of Treatment Upcoming Encounters Date Type Department Care Team (Late st Contact Info) Description 10/22/2025 1:00 PM EST Consult [place] [facility] [address] [place] [address] Augustine Castanon MD [address] [place] [address] Health Maintenance Due Date Last Done Comments [facility]-Depression Screening 1955 [facility]-/Child/Adol SDOH Screenings 1955 [facility]- SDOH Screenings 11/06/1973 [facility]-Adult SDOH Screenings 11/06/1973 CT Colonography 11/06/2000 Colonoscopy 11/06/2000 FIT-DNA 11/06/2000 FIT 11/06/2000 FOBT 11/06/2000 Sigmoidoscopy 11/06/2000 [facility]-Colorectal Cancer Screening 11/06/2000 [facility]-Zoster Vaccines (1 of 2) 11/06/2005 [id number] Vaccine ( season) 2024 08/06/2021, 11/13/2020, 10/16/2020 [facility]-Influenza Vaccine (#1) 04/22/202507/06, 06/02/2022, 06/09/2020, Additional history exists [facility]-RSV Vaccine: 60+ Years or (1 - 1-dose 75+ series) 11/06/2030 [facility]-DTaP,Tdap,and Td Vaccines (2 - Td or Tdap) 10/06/2033 10/06/2023 [facility]-Pneumococcal Vaccine: 50+ Years Completed 10/06/2023 HPV Vaccines Aged Out No longer eligi ble based on patient's age to complete this topic [facility]-HIB Vaccines Aged Out No longer e ligible based on patient's age to complete this topic [facility]-Hepatitis A Vaccines Aged Out No longer eligible based on patient's age to complete this topic [facility]-IPV Vaccines Aged Out No longer e ligible based on patient's age to complete this topic [facility]-Rotavirus Vaccines Aged Out No lo nger eligible based on patient's age to complete this topic
--- OUTSIDE RECORDS SUMMARY | 2025-04-04 09:51 | XMS_ITS | Encounter Summary ---
[facility] Organization [facility] Address [address] [place] [address] Care Team Providers Care Dado Operator Name Role Phone Julio C Oleary MD Primary Care Provider [phone]- [phone] Encounter Details Date Type Department Care Team (Late st Contact Info) Description 03/29/2013 Conversion Encounter [facility] HISTORICAL CONV [address] [place] [address] Interface, See Report Social History Tobacco Use Types Packs/Day Years Used Date Smoking Tobacco: Never Assessed Sex and Gender Information Value Date Recorded Sex Assigned at Not on file Legal Sex Male 10:33 AM EDT Gender Identity Not on file Sexual Orientation Not on file documented as of this encounter H&P Notes * Interface, See Report - 03/29/2013 8:00 AM EDT Hussain Naik M.D. ' Malathi Carbajal M.D. ' Quoc Dominguez M.D. ' JEANETTE Montes M.D. ' Jay Kay M.D. ' Piero Kent M.D. ' Roxana Hardin APRN [address] [place] [address], [address] [place] [id number] [email or web address] NEW PATIENT EVALUATION GIOVANNY MEJÍA : 1955 DATE OF VISIT: 03/29/2013 REFERRING PHYSICIAN: Dr. Kya Godinez PRIMARY CARE: Dr. Irineo Brice ORTHOPAEDIST: Dr. Rocky Almonte INFECTIOUS DISEASE: Dr. Rocky Tubbs MEMBERSHIP SALES ADVISOR: Dr. Daryl Medina PROBLEMS: 1. Pulmonary embolus and deep vein thrombosis, recurrent deep vein thrombosis. 2. Knee pain with possible septic arthritis. 3. Osteoarthritis. 4. Hypertension. 5. Obstructive sleep apnea. HISTORY: This is a 57 year old white male who has a complicated history of thrombotic events. He initially had a lower extremity thrombus in 2002 after foot surgery. He was treated with warfarin. He did well until 2011 when he experienced pulmonary emboli and bilateral deep vein thromboses following knee replacement. He was treated with Lovenox and then Coumadin. He reports that he had minimal trouble keeping his Coumadin therapeutic and he did not have any adverse events. He stopped the warfarin after one year and did well initially, but developed leg pain. He did grow a Streptococcus species on cultures although initial findings evidently did not suggest septic arthritis. He has been treated with IV antibiotics and continues on these under the direction of Dr. Tubbs. HISTORY - continued; He had recurrent deep vein thrombosis diagnosed last month by Doppler studies as detailed below. Doppler studies earlier had not shown DVT. He currently is experiencing severe right knee pain. He walks using a walker and is unable to do full weight bearing on the right leg. The pain is mostly in the anterior portion of this knee and proximal leg. He does not describe significant or severe calf tenderness or calf pain. PAST MEDICAL HISTORY: SURGERIES: 1. Elbow surgery in 1991. 2. Surgery on his right foot was evidently had bunion surgery in 2002. 3. Gallbladder in 2008. 4. Sinus surgery in 2006. 5. Left knee surgery in 2011. 6. The right knee problems he has been experiencing this year. MEDICAL ILLNESSES: 1. Hypertension. 2. Obstructive sleep apnea. 3. Arthritis. MEDICATIONS: His medication list was examined and medication reconciliation for the patient has been reviewed in the electronic medical record. He is currently on: 1. Warfarin 10 mg daily. 2. Niaspan. 3. Aspirin 81 mg b.i.d. 4. Tramadol p.r.n. 5. Flaxseed oil. 6. Protonix. 7. Flexeril. ALLERGIES: He lists an allergy to naproxen, which caused itching. SOCIAL HISTORY: He lives in [facility] with his . He is accompanied today by his and daughter. He does not smoke cigarettes and never has. He was a welder tool and die. FAMILY HISTORY: Mother is alive in her 70s. She does have diabetes and she has had an VA. She may have had a DVT in her 60s; they are not sure about this. Father at 68 from heart disease or stroke complicating diabetes. REVIEW OF SYSTEMS: The review of systems page was discussed with him and is included in the electronic record. He does describe some chills, which are brief chilled episodes and not shaking chills, along with fatigue and flushing. His pain, which is his leg pain, especially the right knee. He has had a weight loss of 30 pounds over the last couple of months with poor appetite. He has some mild chronic hearing loss. He did not mention in his medical problems, but he was noted previously to have some hilar lymphadenopathy on CT angiogram and he had some small pulmonary nodules which are being followed by Dr. Medina. He has seen Dr. Fabian for his obstructive sleep apnea. PHYSICAL EXAM: GENERAL: He is comfortable appearing at rest. He has difficulty walking and is using a walker. HEENT: Sclerae are anicteric. Extraocular movements intact. Pupils equal, round, reactive to light. Oral mucosa is pink without ulcers or eugenio. HEART: Regular rhythm and rate. LUNGS: No rub, crackles or wheezes. ABDOMEN: Soft without masses or organomegaly. EXTREMITIES: Show mild bilateral lower extremity edema, more on the right than left. No cords. He has minimal calf tenderness on the right. The joint showed some chronic changes in the knees, but he does not have any obvious erythema or effusion on my examination. He does not have any rheumatoid changes in the small joints. SKIN: No rashes or purpura. No petechiae. NODES: I cannot feel any cervical, supraclavicular or axillary lymph nodes. NEUROLOGIC: He is alert and answers all questions appropriately and moves all extremities normally. His gait is altered by his pain and the use of his walker. He does not have ataxia. LABS: I have reviewed multiple different studies. Some important studies include studies from 03/09/2013 done by the vascular lab at the [facility] showing some chronic postphlebitic changes, scarring and recanalization, along with acute occlusive deep vein thrombosis in the paired posterior tibial veins. LABS - continued: I also have reviewed the duplex study dated 02/13/2013 at [facility], which did not show any deep vein thrombosis. IMPRESSION: 1. Recurrent DVT and pulmonary embolus. These are all been in the lower extremities and have all been associated with either lower extremity procedures or at least periods of immobilization. He does not have any unusually located thromboses. He does have only one possible family member with a possible DVT. That would have been his mother when she was in her 60s. This makes familial events less likely but not impossible. Much more likely will if he has a thrombophilic disorder it would be hypercoagulable state. 2. He does have some postphlebitic syndrome changes but I do not think this is a significant portion of his lower extremity pain since it is only minimal pain in the calf, and he does not have significant tenderness or other findings around the calf. PLAN: 1. I will check his antiphospholipid antibody and also will check a factor V Leiden since a homozygous factor V Leiden could have severe thrombotic events. 2. He will continue his warfarin unchanged. We did discuss that the treatment for most of the familial hypercoagulable disorders is typically lifelong Coumadin and he certainly needs to be on that now. We also discussed some of the other newer anticoagulants. Given the absence of data about complicated cases such as his I would not plan to change to one of the other drugs until more information is available. 3. He will follow up with Dr. Tubbs about his antibiotics and with his other physicians about his other problems. PLAN - continued: 4. I will see him back in about a month and I will call if the antiphospholipid antibody is positive. This might make us consider a higher intensity warfarin, which has been recommended by some authors. Malathi Carbajal M.D.* RME/rxalw Doc. ID [id number] Rev. #0 cc: Kya Godinez M.D.* Dereck Brice Jr., M.D.* Rocky Tubbs M.D.* Rocky Almonte M.D.* Daryl Medina M.D.* Shirley Fabian M.D.* GIOVANNY MEJÍA : 1955 DATE OF VISIT: 03/29/2013 Page 5 of 5 Page 1 of 5 DOCUMENT CODE :[facility]: PHYSICIAN CODE :11577: Authenticated by MALATHI CARBAJAL M.D. On 04/11/2013 06:24:28 PM * Interface, See Report - 03/29/2013 8:00 AM EDT Hussain Naik M.D. ' Malathi Carbajal M.D. ' Quoc Dominguez M.D. ' JEANETTE Montes M.D. ' Jay Kay M.D. ' Piero Kent M.D. ' Roxana Hardin APRN [address] [place] [address], [place] [address] [place] [address] [employer] OFFICE NOTE GIOVANNY MEJÍA : 1955 DATE OF VISIT: 05/03/2013 PROBLEM LIST: 1. Pulmonary embolus and deep vein thrombosis, recurrent deep vein thrombosis. 2. Warfarin therapy for pulmonary embolus and deep venous thrombosis. 3. Other problems as listed in my note of 03/29/2013. HISTORY: Mr. Mejía has continued on his warfarin without difficulty. He has made some mild adjustments to keep the INR therapeutic. He has not had any other new problems except for his knee. He is following up regularly with his other physicians. REVIEW OF SYSTEMS: No cough, wheezing, dyspnea, hemoptysis, or pleuritic chest pain. MEDICATIONS: His medication list was examined and medication reconciliation for the patient has been reviewed in the electronic medical record. PHYSICAL EXAM: GENERAL: He is comfortable appearing. He is still using a crutch. HEENT: Sclerae anicteric. Oral mucosa normal. HEART: Regular rhythm and rate. LUNGS: No rub, crackles or wheezes. ABDOMEN: Soft without masses or organomegaly. EXTREMITIES: Show mild right leg edema. His incisions appear to be healing well. There were no cords or calf tenderness. NODES: There were no lymph nodes felt. LABS: His factor V Leiden testing was normal. The antiphospholipid antibody assay was negative. IMPRESSION: Recurrent DVT. This appears to be predominantly from mechanical causes and not from a thrombophilic disorder. He would be unlikely to have any of the inherited thrombophilic disorders presenting at this late age. PLAN: 1. He is doing well on his warfarin. He will continue this unchanged. We did discuss some of the newer anticoagulants and since he does have a complicated clinical situation I would not plan to change him until more data emerges about those situations. We could reconsider this if he did have problems with his warfarin but he seems to be doing well on it. 2. He will follow up regularly with Dr. Brice and Dr. Almonte. 3. I will be glad to see him back if new problems or questions develop. Malathi Carbajal M.D.* RME/rxalw Doc. ID [id number] Rev. #0 cc: Dereck Brice Jr., M.D.* Rocky Almonte M.D.* Daryl Medina M.D.* GIOVANNY MEJÍA : 1955 DATE OF VISIT: 05/03/2013 Page 2 of 2 Page 1 of 2 DOCUMENT CODE :[facility]: PHYSICIAN CODE :[id number]: Authenticated by MALATHI CARBAJAL M.D. On 05/10/2013 05:16:01 PM documented in this encounter Plan of Treatment Upcoming Encounters Date Type Department Care Team (Late st Contact Info) Description 05/23/2025 8:30 AM EDT Office Visit [facility] [address] [place] [id number] SeApril costello, SENIOR BUSINESS ARCHITECT [address] [place] [address] [place] [address] documented as of this encounter Visit Diagnoses Not on filedocumented in this encounter Care Teams Dado Operator Relationship Specialty Start Date End Date Julio C Oleary MD [address] [place] [address] PCP - General Family Medicine 02/23/23 documented as of this encounter
--- OUTSIDE RECORDS SUMMARY | 2025-04-04 09:51 | XMS_ITS | Encounter Summary ---
Author Organization [facility] Address [address] [id number] Care Team Providers Care Napper Tender Name Role Phone Unavailable Primary Care Provider Unavailabl e Reason for Referral * Consultation (Routine) - Authorized Specialty Diagnoses / Procedures Referred By Contac t Referred To Contact Neurology Diagnoses Muscle weakness (generalized) Peripheral vascular disease, unspecified (CMS/HCC) Lumbosacral spondylosis without myelopathy Lidia Barrios MD [address] [facility] [place] [address] [place] [id number] Phone: tel: fax: Referral ID Status Reason Start Date Expiration Date Visits Requested Visits Authorized [id number] Authorized Specialty Services Required 01/18/2025 07/20/2026 1 1 Encounter Details Date Type Department Care Team (Late Contact Info) Description 01/18/2025 [facility] [address] [place] [address] Lidia Barrios MD [address] [facility] [place] [address] [place] [id number] Muscle weakness (generalized) (Primary Dx); Peripheral [...] as of this encounter Plan of Treatment Upcoming Encounters Date Type Department Care Team (Late Contact Info) Description 10/22/2025 1:00 PM EST Consult [place] [facility] [address] [place] [address] Augustine Castanon MD [address] [place] [phone] Scheduled Referrals Name Type Priority Associated Diagnoses [...]
--- OUTSIDE RECORDS SUMMARY | 2025-04-04 09:51 | XMS_ITS | Encounter Summary ---
Author Organization [facility] Address [address] [place] [id number] Care Team Providers Care Sales Merchandise Associate Name Role Phone Julio C Oleary MD Primary Care Provider +1- [phone] Reason for Visit * Reason Comments Med Refill Encounter Details Date Type Department Care Team (Late st Contact Info) Description 12/18/2023 Refill [facility] [address] [place] [address] Renata Schwartz APRN [address] [place] [address] Med Refill Social History Tobacco Use Types Packs/Day Years Used Date Smoking Tobacco: Never Passive Smoke Exposure: Never Smokeless Tobacco: Never Alcohol Use Standard Drinks/Week Comments No 0 (1 standard drink = 0.6 oz pur e alcohol) Sex and Gender Information Value Date Recorded Sex Assigned at Not on file Legal Sex Male 10:33 AM EDT Gender Identity Not on file Sexual Orientation Not on file Occupation Industry Job Start Date Job End Date RETIRED Not on file Not on file Not on file documented as of this encounter Plan of Treatment Upcoming Encounters Date Type Department Care Team (Late st Contact Info) Description 05/23/2025 8:30 AM EDT Office Visit [facility] [address] [place] [phone] April Meier, JEANETTE [address] [place] [address] [place] [address] documented as of this encounter Visit Diagnoses Diagnosis Primary insomnia Persistent disorder of initiating or maintaining sleep documented in this encounter Care Teams Sales Merchandise Associate Relationship Specialty Start Date End Date Julio C Oleary MD [address] [place] [address] PCP - General Family Medicine 02/23/23 documented as of this encounter
--- NOTE | 2025-04-04 10:22 | EXP.PAIN.OV ---
HPI Data of Consult Patient: new to practice Consult date: 04/04/25 Requesting Physician: Lety Singer APRN Primary Care Provider: Julio C Oleary MD Reason for consult: Low back pain, leg pain, neck pain, bilateral hand pain History of present illness: Mr. Dumont is a 69 year old male who presents today as a new patient. He is a referral from [facility] physicians group. Today he rates his pain a 7 out of 10. He states overall he hurts everywhere and that does believe a lot of it is related to arthritis. He does state however he would have to say that the numbness and tingling into his feet and ankles is probably the worst. Patient does state he has low back pain as well and numbness that does radiate from his low back down the entire right leg. He states that he also has a lot of swelling in his bilateral lower extremities. He does state the pain is worse with prolonged standing, walking or increased activity. He does state the pain is interfering with his ability perform activities of daily living such as cooking and cleaning. Patient does feel like the more he is up doing activity he just gets a lot of weakness and has to stop and take multiple breaks. Patient denies any prior surgery and does state years ago he did have an injection. Patient does state the pain has gone on at least 4 to 5 years if not longer. He has tried [id number] medications of Tylenol as well as prescription tramadol with minimal changes. Patient has also tried heat ice and topicals with no additional improvement as well as chiropractor therapy. Patient does continue to do exercises and stretching on a regular basis that was physician guided with no additional changes. Patient is interested in any help we may be able to provide as he is trying to avoid having to have surgery. His Richardson has been reviewed and is appropriate. Pain at rest (0-10 scale): 7 Has patient had previous pain injection?: No Conservative treatment options previously tried: Home exercise plan (Longer than 12 weeks), Chiropractor (Made no difference) and Prescription medications (Longer than 12 weeks) cc:: CC: Ltey Singer APRN [facility] Disclaimer: The information contained in this section may have been updated after the patient was seen, as this information can be updated by other users. Medical History Bilateral lower extremity pain Symptoms suggestive of possible vascular claudication Obstructive sleep apnea (adult) (pediatric) Mild acid reflux Arthritis Hypertension DVT (deep venous thrombosis) Gout Surgical History H/O elbow surgery History of bunionectomy History of cholecystectomy H/O knee surgery Family History Mother Diabetes Heart attack Hypertension Father Diabetes Hypertension Social History Smoking Status: Never smoker second hand exposure: Yes alcohol intake: current alcohol intake frequency: a few times a month substance use type: denies use current occupational status: retired Travel in the last 8 weeks?: None household members: none housing: house marital status: number of children: 2 number of grandchildren: 4 Review of Systems Review of Systems Review of systems:: pertinent systems reviewed and negative unless documented below Review of systems (narrative): Review of Systems: General: No recent weight changes, no fever, no sleep disturbances Respiratory: No cough, no shortness of air, no recurring pulmonary infections Cardiovascular/peripheral vascular: No chest pain, no palpitations, no edema, no shortness of breath Gastrointestinal: No new onset incontinence, normal bowel movements reported Genitourinary: No new onset incontinence Musculoskeletal: Neck pain, bilateral arm/hand numbness tingling, low back pain, right leg numbness, bilateral feet numbness tingling Psychiatric: [Normal mood/affect] Neurological: [Denies weakness in extremities], [denies balance issues] Meds Home Medications and Allergies Home Medications ?Medication ?Instructions ?Recorded ?Confirmed ?Type trazodone 150 mg tablet 150 mg PO HS sleep 11/17/23 03/25/25 History aspirin 325 mg tablet 325 mg PO DAILY 12/28/24 03/25/25 History bumetanide 1 mg tablet See Rx Instructions .Route 01/15/25 03/25/25 Rx .COMPLEX #90 tabs pantoprazole 40 mg tablet,delayed See Rx Instructions .Route 01/15/25 03/25/25 Rx release .COMPLEX #90 tabs nabumetone 750 mg tablet See Rx Instructions .Route 02/15/25 03/25/25 Rx .COMPLEX #60 tabs irbesartan 150 See Rx Instructions .Route 03/18/25 03/25/25 Rx mg-hydrochlorothiazide 12.5 mg .COMPLEX #60 tabs tablet metoprolol succinate 50 mg See Rx Instructions .Route 03/20/25 03/25/25 Rx tablet,extended release 24 hr .COMPLEX #30 tabs pyridostigmine bromide 60 mg 60 mg PO TID Muscle weakness #90 03/26/25 03/26/25 Rx tablet (Mestinon) tabs New Prescriptions to Start Prescriptions: Allergies Allergy/AdvReac Type Severity Reaction Status Date / Time naproxen (From Naprosyn) Allergy Intermediate itching Verified 03/25/25 10:24 statins Allergy myalgia Uncoded 03/25/25 10:24 Objective Narrative: Physical Exam: General: Alert and oriented x3, no acute distress, pleasant and cooperative Lungs: Respirations even and unlabored, symmetrical chest expansion Eyes: PERRL Musculoskeletal: Flexion and extension of lumbar [spine] somewhat guarded secondary to pain, [antalgic gait noted] positive leg raise Neurological: Speech clear, no gross sensory deficit Additional findings Additional findings: FINDINGS: Multiplanar MR imaging of the lumbar spine was performed without contrast. On the sagittal T2-weighted images, there is abnormal decreased signal throughout the lumbar discs. The vertebrae are of normal height. There is minimal spondylolisthesis of L5 on S1. L1-2: Mild annular disc bulge is present with mild bilateral neural foraminal narrowing. L2-3: Mild annular disc bulge is present with mild bilateral neural foraminal narrowing. L3-4: Mild to moderate annular disc bulge is present. There is mild facet hypertrophy with mild to moderate bilateral neural foraminal narrowing. L4-5: Mild to moderate annular disc bulge is present. There is bilateral facet hypertrophy. There is moderate to high-grade left and moderate right neural foraminal narrowing. L5-S1: Diffuse disc bulge is present accentuated by spondylolisthesis. There is high-grade right and moderate left neural foraminal narrowing. IMPRESSION: Multilevel degenerative disc disease with neural foraminal compromise, most evident on the left at L4-5 and on the right at L5-S1. Reviewed, Interpreted and Dictated by Ramon Ryan MD Transcribed by Liza Martin Authenticated and [facility] Assessment and Plan *Assessment and plan (1) Bilateral lower extremity pain: Problem Comment: Symptoms suggestive of possible vascular claudication Status: Chronic Category: Medical Code(s): M79.604 - Pain in right leg; M79.605 - Pain in left leg (2) Bilateral leg numbness: Status: Chronic Category: Medical Code(s): R20.0 - Anesthesia of skin (3) Degenerative disc disease: Status: Acute Category: Medical (4) Lumbar radiculopathy: Status: Acute Category: Medical Code(s): M54.16 - Radiculopathy, lumbar region Plan Patient is experiencing worsening pain in his low back with numbness and tingling into his lower extremities. Patient did have limited range of motion of his lumbar spine with a positive leg raise. I did discuss with patient that I do believe they would benefit from a lumbar epidural steroid injection. Risk and benefits were discussed with patient and the patient would like to proceed forward with this plan of care. Patient is on a full-strength aspirin and I have instructed him that he will have to stop taking this 7 days prior to this procedure. Patient acknowledges understanding agrees with this plan of care.. Patient has tried and failed conservative therapy including oral medications, heat and ice, topicals, chiropractor therapy and continued at home stretching exercise for longer than 12 weeks that was physician guided. Patient has had chronic back pain for longer than 6 months. I did print him off physician guided low back and hip exercises to do at home during today's visit. Patient has had 1 injection years ago in the past but is unsure what exactly that injection was. We have no epidurals to compare to. We will schedule the patient for an LESI L4-L5 under fluoroscopy. Patient has been instructed to contact the clinic with any concerns before the next appointment. Dr. Hernández has reviewed this note and agrees with this plan of care. This note was dictated using voice recognition software and make contain errors or omissions. All injections are used with Lidocaine, Bupivacaine and dexamethasone. Occasionally urine drug screen is needed to verify patient's compliance with our office pain contract. This is ordered based off specific treatments related to chronic pain with the potential to abuse certain medications.
[2025-04-04 11:06] VITALS: BP 136/73; PULSE 58; RESP 18; O2SAT 98; BMI 40.6
== END 2025-04-04 23:59 | disposition home or self-care (01) ==
PROVIDERS: PCP Family Medicine; Visit Provider Nurse Practitioner Family
DX: M79.604 Pain in right leg (principal); M79.605 Pain in left leg; R20.0 Anesthesia of skin; M54.16 Radiculopathy, lumbar region; Z79.1 Long term (current) use of non-steroidal anti-inflammatories (NSAID); Z79.891 Long term (current) use of opiate analgesic
CPT/HCPCS: 99202; G0463

== ENCOUNTER 2025-05-14 11:34 | Day surgery (SDC) | payer MEDICARE, SELFPAY ==
[2025-05-14 11:40] VITALS: BP 108/70; PULSE 80; RESP 18; O2SAT 98; BMI 40.6
[2025-05-14] MEDS: DEXAMETHASONE 10MG/ML 1ML VIAL 10 MG (11:46)
--- NOTE | 2025-05-14 11:50 | EXP.PAIN.PRO ---
Procedure Date: 05/14/25 Time: 11:45 Anesthesiologist:: Eliu Wheatley CRNA Complications:: None Pre-procedure Diagnosis:: Degenerative disc lumbar spine multilevels for lumbar radiculopathy. Lumbar multilevel facet arthropathy. Lumbar spondylosis. Multilevel lumbar disc bulge. Post-procedure Diagnosis:: Same Indications for Procedure:: Patient is a very pleasant 69-year-old male who comes our clinic today for lumbar epidural steroid injection. Patient describes low lumbar back pain as constant, dull, aching. He reports bilateral leg radicular symptoms. He rates his pain 8/10. Procedure Details:: Procedure: Lumbar epidural steroid injection under fluoroscopy Informed consent was obtained and the risks and benefits of the procedure were explained to the patient. The patient was taken to the procedure room and noninvasive monitors placed, including noninvasive blood pressure cuff and pulse oximeter. The back was viewed using C-arm Fluoroscopy and prepped using Chloraprep as a cleansing solution and the L4-L5 interspace was palpated. Skin and subcutaneous tissues were anesthetized using lidocaine 1.5% and a 25-gauge needle. After this, an 18-gauge Touhy epidural needle was placed into the L4-L5 interspace and advanced using fluoroscopic guidance and loss of resistance to air until the epidural space was encountered. After confirmation of needle placement in the epidural space, with dye, a solution containing normal saline, 3 mL and dexamethasone 10 mg were incrementally injected into the lumbar epidural space. The patient tolerated the procedure well with no complications. The patient was observed in the Pain Clinic and then discharged home neurologically intact. Plan and Disposition:: Patient was discharged without incident.
[2025-05-14 11:52] VITALS: BP 124/61; PULSE 76; RESP 16; O2SAT 96
[2025-05-14 12:06] VITALS: BP 125/73; PULSE 72; RESP 18; O2SAT 94
[2025-05-14 12:08] VITALS: BP 125/73; PULSE 72; RESP 18; O2SAT 94
== END 2025-05-14 11:52 | disposition home or self-care (01) ==
PROVIDERS: PCP Family Medicine; Visit Provider Nurse Anesthetist, Certified Registered
DX: M51.16 Intervertebral disc disorders with radiculopathy, lumbar region (principal); M47.26 Other spondylosis with radiculopathy, lumbar region; K21.9 Gastro-esophageal reflux disease without esophagitis; I10 Essential (primary) hypertension; M17.9 Osteoarthritis of knee, unspecified; Z86.718 Personal history of other venous thrombosis and embolism; Z88.8 Allergy status to other drugs, medicaments and biological substances; Z88.6 Allergy status to analgesic agent; Z79.51 Long term (current) use of inhaled steroids; Z79.899 Other long term (current) drug therapy
CPT/HCPCS: 62323; J1100

== ENCOUNTER 2025-07-01 07:40 | Outpatient (CLI) | payer MEDICARE, SELFPAY ==
--- OUTSIDE RECORDS SUMMARY | 2025-06-10 08:00 | XMS_ITS | Encounter Summary ---
[facility] Organization [facility] Address [address] [place] [id number] Care Team Providers Care Neighborhood Aide Name Role Phone Julio C Oleary MD Primary Care Provider +1- [phone] Reason for Visit * Reason Comments Sleep Apnea Encounter Details Date Type Department Care Team (Late st Contact Info) Description 06/10/2025 9:00 AM EDT Office Visit [facility] [address] [place] [address] Leigha Robin APRN [address] [place] [address] CSA (central sleep apnea) (Primary Dx) Social History Tobacco Use Types Packs/Day Years [...] on file documented as of this encounter Last Filed Vital Signs Vital Sign Reading Time Taken Comments Blood Pressure 128/70 06/10/2025 8:37 AM EDT Pulse 69 06/10/2025 8:37 AM EDT Temperature - - Respiratory Rate - - Oxygen Saturation 93% 06/10/2025 8:37 AM EDT Inhaled Oxygen Concentration - - Weight 133 kg (294 lb) 06/10/2025 8:37 AM EDT Height 182.9 cm (6') 06/10/2025 8:37 AM EDT Body Mass Index 39.87 06/10/2025 8:37 AM EDT documented in this encounter Progress Notes * Leigha Robin APRN - 06/10/2025 9:00 AM EDTAssociated Problem(s): CSA (central sleep apnea) * Leigha Robin APRN - 06/10/2025 9:00 AM EDT Images from the original note were not included. [facility] Provider Note Date: 06/10/2025 Name: Giovanny Dumont : 1955 PCP: Julio C Oleary MD Chief Complaint Patient presents with Sleep Apnea Subjective History of Present Illness History of Present Illness Giovanny Dumont is a 69 y.o. male that RTC for 6 month f//u of sleep apnea. Download reviewed and patient is using BiPap 67% of the time, greater than 4 hours is 20%, average use is 3 hours and 41 minutes and AHI is 2.1. Patient reports on average he will go to sleep around 9 to 10 at night and will wake up around 1 or 2am with muscle and joint pain. He reports he has changed mask and still feels like he is fighting with his machine. He also reports he takes trazodone tohelp him sleep, unfortunately he still will awaken around 1 to 2 in the morning. States he needs a knee replacement however he is holding off for as long as he can. Cardiology and sleep History: Follows with us for sleep only. BRAD/CSA with [facility]-Becker breathing on updated HST 11/16/22 baseline AHI 46 02/16/2023 titration study titrated to Bipap 18/14 cm Titration 07/15/24 Bipap 19/15 cm History of PE 10/2011-PCP History DVT 2002 and 2011-PCP History of PE- PCP prescribes Eliquis Mild cardiomyopathy Hyperlipidemia-PCP Hypertension-PCP Obesity Pulmonary nodule-PCP 02/23/2023 echo-normal EF, mild concentric left ventricular hypertrophy, grade 1 diastolic dysfunction, right ventricular cavity mild to moderately dilated, left atrial cavity mildly dilated, mild calcification of the aortic valve with abnormal structure and sclerosis. Allergies[1] Current Medications[2] Past Medical History: Diagnosis Date Arthritis Chronic pain DVT (deep venous thrombosis) Essential (primary) hypertension Obstructive sleep apnea (adult) (pediatric) AHI 20 Other hyperlipidemia Past Surgical History: Procedure Laterality Date BUNIONECTOMY CHOLECYSTECTOMY 03/30/2011 KNEE SURGERY Left TKA- Dr Almonte Family History Problem Relation Age of Onset Diabetes Mother Diabetes Father Heart attack Father Diabetes Sister Social History[3] Objective Vital Signs: BP 128/70 Pulse 69 Ht 182.9 cm (72 ) Wt 133 kg (294 lb) SpO2 93% BMI 39.87 kg/m?? Estimated body mass index is 39.87 kg/m?? as calculated from the following: Height as of this encounter: 182.9 cm (72 ). Weight as of this encounter: 133 kg (294 lb). Physical Exam Constitutional: Appearance: Normal appearance. He is obese. Neurological: General: No focal deficit present. Mental Status: He is alert and oriented to person, place, and time. Psychiatric: Mood and Affect: Mood normal. Behavior: Behavior normal. Thought Content: Thought content normal. Judgment: Judgment normal. Results Assessment and Plan Assessment & Plan CSA (central sleep apnea) Assessment & Plan Central Sleep Apnea - Download reviewed and patient is using BiPap 67% of the time, greater than 4 hours is 20%, average use is 3 hours and 41 minutes and AHI is 2.1. - When wearing machine he is benefiting from it. Plan to continue - Recommended increasing PAP usage. - Sleep risks reviewed Recommendations: Report if any new/changing symptoms immediately, Sleep risks reviewed (driving, medical, sleep , sedating agents), Sleep hygiene discussed, and Increase pap therapy usage Follow Up Return in about 6 months (around 12/09/2025) for Next scheduled follow up. Leigha Robin APRN Cardiology and Sleep Psychiatric 06/10/2025 Please note that this explicitly excludes time spent on other separate billable services such as performing procedures or test interpretation, when applicable. [1] Allergies Allergen Reactions Atorvastatin Unknown - Low Severity Colesevelam Unknown - Low Severity Ezetimibe Unknown - Low Severity Lisinopril Unknown - Low Severity Pitavastatin Unknown - Low Severity Pravastatin Unknown - Low Severity Red Yeast Rice Unknown - Low Severity Rosuvastatin Unknown - Low Severity Simvastatin Unknown - Low Severity Naproxen Itching [2] Current Outpatient Medications: aspirin 325 MG tablet, Take 1 tablet by mouth Daily., Disp: , Rfl: bumetanide (BUMEX) 1 MG tablet, Take 1 tablet by mouth Daily., Disp: , Rfl: Flaxseed, Linseed, (FLAXSEED OIL PO), Take by mouth., Disp: , Rfl: gabapentin (NEURONTIN) 600 MG tablet, Take 1 tablet by mouth 3 (Three) Times a Day., Disp: , Rfl: irbesartan-hydrochlorothiazide (AVALIDE) 150-12.5 MG tablet, Take 1 tablet by mouth Daily., Disp: ,Rfl: metoprolol succinate XL (TOPROL-XL) 50 MG 24 hr tablet, Take 1 tablet by mouth Daily., Disp: , Rfl: nabumetone (RELAFEN) 750 MG tablet, Take 1 tablet by mouth Every 12 (Twelve) Hours., Disp: , Rfl: pantoprazole (PROTONIX) 40 MG EC tablet, Take 1 tablet by mouth Daily., Disp: , Rfl: traMADol (ULTRAM) 50 MG tablet, Take 1 tablet by mouth Every 6 (Six) Hours As Needed., Disp: , Rfl:0 traZODone (DESYREL) 150 MG tablet, Take 1 tablet by mouth Every Night., Disp: 90 tablet, Rfl: 1 [3] Social History Socioeconomic History Marital status: Number of children: 2 Tobacco Use Smoking status: Never Passive exposure: Never Smokeless tobacco: Never Vaping Use Vaping status: Never Used Substance and Sexual Activity Alcohol use: No Drug use: No Sexual activity: Defer documented in this encounter Plan of Treatment Upcoming Encounters Date Type Department Care Team (Late st Contact Info) Description 12/09/2025 8:30 AM EDT Office Visit [facility] [address] [place] [address] Leigha Robin APRN [address] [place] [address] documented as of this encounter Visit Diagnoses Diagnosis CSA (central sleep apnea)- Primary Unspecified sleep apnea documented in this encounter Care Teams Neighborhood Aide Relationship Specialty Start Date End Date Julio C Oleary MD [address] [place] [address] [place] [address] PCP - General Family Medicine 02/23/23 documented as of this encounter
--- OUTSIDE RECORDS SUMMARY | 2025-07-01 07:43 | XMS_ITS | Clinical Summary ---
Author Organization [facility] Address [address] [place] [address] Phone Care Team Providers Care Clinical Program Director Name Role Phone Status, Fax Unavailable Conditions or Problems Problem Name Problem Code Onset Date Status Entry Date Provider Comment Standard Description Annotate DVT 934377011 (SNOMED CT) 03/15 Active 03/15 Rocky Tubbs MD Deep venous thrombosis ELEVATED CRP R79.82 (ICD-10-CM ) 03/01 Active 03/05 Andreia Yung Elevated C-reactive protein (CRP) LEUKOCYTOSIS 836180390 (SNOMED CT) 03/01 Active 03/05 Andreia W Leukocytosis ALPHA STREP B95.4 (ICD-10-CM ) 02/23 Active 03/02 Andreia W Other streptococcus as the cause of diseases classified elsewhere OBSTRUCTIVE SLEEP APNEA 05671655 (SNOMED CT) 02/20 Active 02/20 Margarita Hernandez Obstructive sleep apnea syndrome RT KNEE PYOGENIC ARTHRITIS M00.80 (ICD-10-CM ) 02/20 Active 02/20 Margarita Hernandez Arthritis due to other bacteria, unspecified joint HYPERTENSION 77566020 (SNOMED CT) 02/20 Active 02/20 Margarita Hernandez Hypertensive disorder HYPERLIPIDEMI A 47353450 (SNOMED CT) 02/20 Active 02/20 Margarita Hernandez Hyperlipidemia GERD 133127554 (SNOMED CT) 02/20 Active 02/20 Margarita Hernandez Gastroesophageal reflux disease Medications Medication Instructions Start Date Stop Date Generic Name [facility] Provider CEFTRIAXONE SODIUM 2 GM SOLR Infuse IV qd OPAT 04/02 CEFTRIAXONE SODIUM 65485060494 Toshia Darius RIZZO LOVENOX SOLUTION 03/22 ENOXAPARIN SODIUM SOLN 76751768732 Rocky Tbubs MD COUMADIN 10 MG ORAL TABLET WARFARIN SODIUM 36030991009 Rocky Tubbs MD INDOMETHACIN 50 MG CAPS 03/15 INDOMETHACIN 28755888931 Rocky Tubbs MD LANSOPRAZOLE 30 MG CPDR take 1 capsule by mouth every morning 03/15 LANSOPRAZOLE 74879371591 Rocky Tubbs MD PRAVASTATIN SODIUM 10 MG TABS take 1 tablet by mouth at bedtime for cholesterol 03/15 PRAVASTATIN SODIUM 09154689008 Rocky Tubbs MD LOVENOX SOLUTION 11/20 ENOXAPARIN SODIUM SOLN 96930661625 Rocky Tubbs MD HYDROCODONE-ACETA MINOPHEN 10-500 MG ORAL TABLET take 1 tablet by mouth every 4 hours if needed for pain 03/01 HYDROCODONE-ACETA MINOPHEN 56238115735 Rocky Tubbs MD INDOMETHACIN 50 MG CAPS 11/20 INDOMETHACIN 49822404000 Rocky Tubbs MD NABUMETONE 750 MG TABS 03/01 NABUMETONE 85899471160 Rocky Tubbs MD ZOLPIDEM TARTRATE 5 MG TABS 02/23 ZOLPIDEM TARTRATE 43227905943 Rocky Tubbs MD PROMETHAZINE HCL SOLN 02/23 PROMETHAZINE HCL SOLN 19141661089 Rocky Tubbs MD ONDANSETRON HCL 4 MG TABS 02/23 ONDANSETRON HCL 60186369182 Rocky Tubbs MD BISACODYL LAXATIVE 10 MG SUPP 02/23 BISACODYL 76596498550 Rocky Tubbs MD MILK OF MAGNESIA CONCENTRATE SUSP 02/23 MAGNESIUM HYDROXIDE SUSP 57786131309 Rocky Tubbs MD HYDROMORPHONE HCL PF SOLN 02/23 HYDROMORPHONE HCL SOLN 05101458073 Rocky Tubbs MD DIPHENHYDRAMINE HCL 25 MG TABS 02/23 DIPHENHYDRAMINE HCL 23066604864 Rocky Tubbs MD WARFARIN SODIUM 5 MG TABS 02/23 WARFARIN SODIUM 41076183798 Rocky Tubbs MD HYDROCODONE-ACETA MINOPHEN 7.5-500 MG ORAL TABLET take 1 to 2 tablets by mouth every 4 to 6 hours if needed 02/23 HYDROCODONE-ACETA MINOPHEN 15739387363 Rocky Tubbs MD INDOMETHACIN 50 MG CAPS take 1 capsule BY MOUTH EVERY 8 HOURS FOR 3 DAYS, THEN TWICE A DA... (REFER TO PRESCRIPTION NOTES). 02/23 INDOMETHACIN 82576038653 Rocky Tubbs MD ZOLPIDEM TARTRATE 5 MG TABS ZOLPIDEM TARTRATE 51803941357 Stephenie L PROMETHAZINE HCL SOLN PROMETHAZINE HCL SOLN 13800536180 Stephenie L ONDANSETRON HCL 4 MG TABS 02/19 ONDANSETRON HCL 06542675379 Stephenie L MILK OF MAGNESIA CONCENTRATE SUSP 10/18 MAGNESIUM HYDROXIDE SUSP 50175292943 Stephenie L HYDROMORPHONE HCL PF SOLN 02/23 HYDROMORPHONE HCL SOLN 55438393863 Stephenie L DIPHENHYDRAMINE HCL 25 MG TABS 02/23 DIPHENHYDRAMINE HCL 60750192994 Stephenie L BISACODYL LAXATIVE 10 MG SUPP 02/23 BISACODYL 80585843506 Stephenie L HYDROCODONE-ACETA MINOPHEN 7.5-500 MG ORAL TABLET take 1 to 2 tablets by mouth every 4 to 6 hours if needed 02/23 HYDROCODONE-ACETA MINOPHEN 49369531864 Stephenie L LANSOPRAZOLE 30 MG CPDR take 1 capsule by mouth every morning 11/20 LANSOPRAZOLE 66146213951 Stephenie Olivera PRAVASTATIN SODIUM 10 MG TABS take 1 tablet by mouth at bedtime for cholesterol 03/15 PRAVASTATIN SODIUM 68706514834 Stephenie Olivera WARFARIN SODIUM 5 MG TABS 11/20 WARFARIN SODIUM 33576162877 Stephenie Olivera TRAMADOL HCL 50 MG TABS take 2 tablets by mouth three times a day if needed TRAMADOL HCL 82519587538 Stephenie Olivera NABUMETONE 750 MG TABS 03/01 NABUMETONE 91646953215 Stephenie Olivera PANTOPRAZOLE SODIUM 40 MG TBEC take 1 tablet by mouth once daily PANTOPRAZOLE SODIUM 84977520264 Stephenie Olivera NIASPAN 500 MG ORAL TABLET EXTENDED RELEASE take 2 tablets by mouth at bedtime NIACIN (ANTIHYPERLIPIDEM IC) 19555292584 Stephenie Olivera INDOMETHACIN 50 MG CAPS take 1 capsule BY MOUTH EVERY 8 HOURS FOR 3 DAYS, THEN TWICE A DA... (REFER TO PRESCRIPTION NOTES). 11/20 INDOMETHACIN 09069687333 Stephenie Olivera HYDROCODONE-ACETA MINOPHEN 10-500 MG ORAL TABLET take 1 tablet by mouth every 4 hours if needed for pain 03/01 HYDROCODONE-ACETA MINOPHEN 27113686334 Stephenie Olivera ENOXAPARIN SODIUM 40 MG/0.4ML SUBCUTANEOUS SOLUTION inject subcutaneously every 24 hours 11/20 ENOXAPARIN SODIUM 71415877628 Stephenie Olivera CEFTRIAXONE SODIUM 2 GM SOLR Infuse IV qd OPAT 04/02 CEFTRIAXONE SODIUM 66322633981 Nicole Matos RN Medications Administered No information [...] Discontinue IV antibiotics 2 CPT-PICREM PICC Removal CPT-72209 CBC with Differential 04/02 CPT-68144 C- reactive protein CPT-95997 Sedimentation Rate (ESR) 201 10/28/11 CPT-ca Continue IV antibiotics 2012 CPT-wpc Weekly PICC Line Care 03/22 CPT-ca Continue IV antibiotics 2012 CPT-07492 BMP CPT-75090 CBC with Differential 03/15 CPT-58051 C- reactive protein CPT-46582 Sedimentation Rate (ESR) 201 10/26/24 CPT-ca Continue IV antibiotics 2012 CPT-80906 BMP CPT-26271 CBC with Differential 03/01 CPT-57561 C- reactive protein CPT-26351 Sedimentation Rate (ESR) 201 10/26/10 CPT-ca Continue IV antibiotics 2012 CPT-wclc Weekly Central Line Care 201 10/26/04 CPT-19081 BMP CPT-47562 CBC with Differential 02/23 CPT-19367 Sedimentation Rate (ESR) 201 10/26/04 CPT-96577 C- reactive protein Vital Signs Date Name [...]
--- OUTSIDE RECORDS SUMMARY | 2025-07-01 07:43 | XMS_ITS | Encounter Summary ---
Author Organization [facility] ([place], [place], [place], [place], [place]) Address [address] [place] [address] Care Team Providers Care Inlayer Silver Name Role Phone SmithdaleBecky lang JEANETTE Primary Care Provider [phone] Julio C Oleary MD Primary Care Provider [phone] Reason for Visit * Reason Onset Date Comments Medication Problem 01/13/2023 Encounter Details Date Type Department Care Team (Late st Contact Info) Description 01/13/2023 Telephone [facility] Rheumatology [address] [place] [address] Amparo Izquierdo MD [address] [facility] [address] [place] [address] Medication Problem Social History Tobacco Use Types [...] Taper. Would Like it to go to [facility]. * Telephone Encounter - William June LPN [...] mentioned it is not helping at all. [phone] documented in this encounter Plan of Treatment Not on file documented as of this encounter Visit Diagnoses Not on filedocumented in this encounter Care Teams Inlayer Silver Relationship Specialty Start Date End Date Becky Ramirez APRN [address] [place] [address] PCP - General Nurse Practitioner 09/06/22 04/17/23 Julio C Oleary MD [address] [place] [address] PCP - General Family Medicine 04/18/23 documented as of this encounter
--- OUTSIDE RECORDS SUMMARY | 2025-07-01 07:43 | XMS_ITS | Encounter Summary ---
Author Organization [facility] Address [address] [place] [id number] Care Team Providers Care Inflated Ball Molder Name Role Phone Unavailable Primary Care Provider Unavailabl e Reason for Referral * Consultation (Routine) - Authorized Specialty Diagnoses / Procedures Referred By Contac t Referred To Contact Neurology Diagnoses Muscle weakness (generalized) Peripheral vascular disease, unspecified (CMS/HCC) Lumbosacral spondylosis without myelopathy Lidia Barrios MD [address] [facility] [address] [place] [address] Phone: tel: fax: Referral ID Status Reason Start Date Expiration Date Visits Requested Visits Authorized [id number] Authorized Specialty Services Required 01/18/2025 07/20/2026 1 1 Encounter Details Date Type Department Care Team (Late Contact Info) Description 01/18/2025 [facility] [address] [place] [address] Lidia Barrios MD [address] [facility] [address] [place] [address] Muscle weakness (generalized) (Primary Dx); Peripheral [...] Consult [place] [facility] [address] [place] [address] Augustine Castanon MD [address] [place] [id number] Scheduled Referrals Name Type Priority Associated Diagnoses [...]
--- OUTSIDE RECORDS SUMMARY | 2025-07-01 07:43 | XMS_ITS | Encounter Summary ---
Author Organization [facility] Address [address] [place] [address] Care Team Providers Care Track Manager Name Role Phone Julio C Oleary MD Primary Care Provider [phone] Encounter Details Date Type Department Care Team (Late st Contact Info) Description 03/29/2013 Conversion Encounter [facility] HISTORICAL CONV [address] [place] [address] Interface, See Report Social History [...] Piero Kent M.D. ' Roxana Hardin APRN [address] [place] [address], [address] [place] [id number] [facility] NEW PATIENT EVALUATION GIOVANNY MEJÍA : 1955 DATE OF VISIT: 03/29/2013 REFERRING PHYSICIAN: Dr. Kya Godinez PRIMARY CARE: Dr. Irineo Brice ORTHOPAEDIST: Dr. Rocky Almonte INFECTIOUS DISEASE: Dr. Rocky Tubbs AIR BAG BUFFER: Dr. Daryl Medina PROBLEMS: 1. Pulmonary embolus [...] caused itching. SOCIAL HISTORY: He lives in [facility] with his . He is accompanied today by his and daughter. He does not smoke cigarettes and never has. He was a rod welder. FAMILY HISTORY: Mother is alive in her 70s. She does have diabetes and she has had an NV. She may have had a DVT in [...] done by the vascular lab at the [facility] showing some chronic postphlebitic changes, scarring and recanalization, along with acute occlusive deep vein thrombosis in the paired posterior tibial veins. LABS - continued: I also have reviewed the duplex study dated 02/13/2013 at [facility], which did not show any deep vein [...] authors. Malathi Carbajal M.D.* RME/rxalw Doc. ID [id number] Rev. #0 cc: Kya Godinez M.D.* Dereck Brice Jr., M.D.* Rocky Tubbs M.D.* Rocky Almonte M.D.* Daryl Medina M.D.* Shirley Fabian M.D.* GIOVANNY MEJÍA : 1955 DATE OF VISIT: 03/29/2013 Page 5 of 5 Page 1 of 5 DOCUMENT CODE :[facility]: PHYSICIAN CODE :[id number]: Authenticated by MALATHI CARBAJAL M.D. On 04/11/2013 06:24:28 PM * Interface, See Report - 03/29/2013 8:00 AM EDT Hussain Naik M.D. ' Malathi Carbajal M.D. ' Quoc Dominguez M.D. ' JEANETTE Montes M.D. ' Jay Kay M.D. ' Piero Kent M.D. ' Roxana Hardin APRN [address] [place] [address], [place] [address] [place] [address] listedplaces OFFICE NOTE GIOVANNY MEJÍA : 1955 DATE [...] develop. Malathi Carbajal M.D.* RME/rxalw Doc. ID [id number] Rev. #0 cc: Dereck Brice Jr., M.D.* Rocky Almonte M.D.* Daryl Medina M.D.* GIOVANNY MEJÍA : 1955 DATE OF VISIT: 05/03/2013 Page 2 of 2 Page 1 of 2 DOCUMENT CODE :[facility]: PHYSICIAN CODE :[id number]: Authenticated by MALATHI CARBAJAL M.D. On 05/10/2013 05:16:01 PM documented in this encounter Plan of Treatment Upcoming Encounters Date Type Department Care Team (Late st Contact Info) Description 12/09/2025 8:30 AM EDT Office Visit [facility] CARDIOLOGY [address] [place] [id number] Leigha Robin, JEANETTE [address] [place] [address] documented as of this encounter Visit Diagnoses Not on filedocumented in this encounter Care Teams Track Manager Relationship Specialty Start Date End Date Julio C Oleary MD [address] [place] [address] PCP - General Family Medicine 02/23/23 documented as of this encounter
--- OUTSIDE RECORDS SUMMARY | 2025-07-01 07:43 | XMS_ITS | Encounter Summary ---
Author Organization [facility] Address [address] [place] [id number] Care Team Providers Care Adoption Agent Name Role Phone Julio C Oleary MD Primary Care Provider [phone]- [phone] Reason for Visit * Reason Comments Med Refill Encounter Details Date Type Department Care Team (Late st Contact Info) Description 12/18/2023 Refill [facility] CARDIOLOGY [address] [place] [address] Renata Schwartz APRN [address] [place], [place] [id number] Med Refill Social History Tobacco Use Types [...] Description 12/09/2025 8:30 AM EDT Office Visit [facility] [address] [place] [address] Leigha Robin APRN [address] [place], [place] [id number] documented as of this encounter Visit Diagnoses Diagnosis Primary insomnia Persistent disorder of initiating or maintaining sleep documented in this encounter Care Teams Adoption Agent Relationship Specialty Start Date End Date Julio C Oleary MD [address] [place] [address] PCP - General Family Medicine 02/23/23 documented as of this encounter
--- OUTSIDE RECORDS SUMMARY | 2025-07-01 07:43 | XMS_ITS | Referral Summary ---
Author Organization [employer] ([place], [place], [place], [place], [place]) Address [address] [place] [address] Care Team Providers Care Sales Agent Name Role Phone Julio C Oleary MD Primary Care Provider +1- [phone] Allergies Active Allergy Reactions Criticality Noted Date [...] Active Problems No known active problems Immunizations Immunization Administration Dates Next Due Covid-19 Vaccine MRNA (PF) 18yr+ (Moderna)([id number]) 11/13/2020 INFLUENZA TRIVALENT ADJUVANTED PF IM 06/30/2018 Influenza High Dose Preservative Free IM ([id number] ) 06/02/2022 Influenza Quad-qiv Non Pf 06/09/2020 [...] Date Sam rded Speak language other than Mongolian at home Not on file 09/09/2023 Want [...] 4:05 AM EST Performed at: - [facility] [address] [id number] Slat Basket Maker: Chidi Kelley PhD, Phone: [phone] us Amparo Izquierdo MD LAB BLOOD ORDERABLES Final Resul t [facility] from Last 3 Months or Most Recently Relevant to Health Maintenance Insurance [facility] ACCESS HMO MAP Care Teams Sales Agent Relationship Specialty Start Date End Date Julio C Oleary MD [address] [place] [address] [place] [address] PCP - General Family Medicine 04/18/23
--- OUTSIDE RECORDS SUMMARY | 2025-07-01 07:43 | XMS_ITS | Clinical Summary ---
Author Organization Healthcare Address [address] [place] [address] Care Team Providers Care Sales Account Manager Name Role Phone Unavailable Primary Care Provider Unavailabl e Social History Tobacco Use Types Packs/Day Years Used Date Smoking Tobacco: Never Assessed Sex and Gender Information Value Date Recorded Sex Assigned at Not on file Legal Sex Male 7:39 PM EDT Gender Identity Not on file Sexual Orientation Not on file Plan of Treatment Upcoming Encounters Date Type Department Care Team (Late st Contact Info) Description 10/22/2025 1:[address] [facility] [address] [place] [address] Augustine Castanon MD [address] [place] [address] Health Maintenance Due Date Last Done Comments [facility]-Depression Screening 1955 [facility]-/Child/Adol SDOH Screenings 1955 [facility]- SDOH Screenings 11/06/1973 [facility]-Adult SDOH Screenings 11/06/1973 CT Colonography 11/06/2000 Colonoscopy 11/06/2000 FIT-DNA 11/06/2000 FIT 11/06/2000 FOBT 11/06/2000 Sigmoidoscopy 11/06/2000 [facility]-Colorectal Cancer Screening 11/06/2000 [facility]-Zoster Vaccines (1 of 2) 11/06/2005 [id number] Vaccine (2024- season) 2025 08/06/2021, 11/13/2020, 10/16/2020 [facility]-Influenza Vaccine (#1) 04/22/202507/06, [...]
--- OUTSIDE RECORDS SUMMARY | 2025-07-01 07:43 | XMS_ITS | Encounter Summary ---
Author Organization [facility] Address [address] [place] [id number] Care Team Providers Care Broadcast Supervisor Name Role Phone Julio C Oleary MD Primary Care Provider +1- [phone] Encounter Details Date Type Department Care Team (Latest Contact Info) Description 06/10/2025 Travel Social History Tobacco Use Types Packs/Day Years [...] 12/09/2025 8:30 AM EDT Office Visit [facility] [address] [place] [address] Leigha Robin APRN [address] [place], [place] [id number] documented as of this encounter Visit Diagnoses Not on filedocumented in this encounter Care Teams Broadcast Supervisor Relationship Specialty Start Date End Date Julio C Oleary MD [address] [place] [address] [facility] [place] [address] PCP - General Family Medicine 02/23/23 documented as of this encounter
--- OUTSIDE RECORDS SUMMARY | 2025-07-01 07:43 | XMS_ITS | Clinical Summary ---
Author Organization [facility] ([place], [place], [place], [place], [place]) Address [address] [place] [address] Care Team Providers Care Information Technology Assistant Name Role Phone Julio C Oleary MD Primary Care Provider +1- [phone] Allergies Active Allergy Reactions Criticality Noted Date [...] 06/30/2018 Influenza High Dose Preservative Free IM ([id number] ) 06/02/2022 Influenza Quad-qiv Non Pf 06/09/2020 [...] Date Sam rded Speak language other than Finnish at home Not on file 09/09/2023 Want [...] 09/14/2021 09/14/2011 Medicare Initial AWV [id number] 08/23/2022 Falls Risk Screening 08/22/2024 Tobacco Cessation Counseling and Screening (12+) 08/25/2024 08/25/2023 COVID-19 VACCINE ( season) 2025 08/06/2021, 11/13/2020, 10/16/2020 Influenza Vaccine (#1) 2025 06/02/2022, 2017 Pneumococcal 50+ years Completed , 10/04/2016, 11/18/2015 [...] 4:05 AM EST Performed at: 01 - [facility] [id number] Sales Force Developer: Chidi Kelley PhD, Phone: [phone] us Amparo Izquierdo MD LAB BLOOD ORDERABLES Final Resul t [facility] from Last 3 Months or Most Recently Relevant to Health Maintenance Insurance BC ACCESS O MAP Care Teams Information Technology Assistant Relationship Specialty Start Date End Date Julio C Oleary MD [address] [place] [address] PCP - General Family Medicine 04/18/23
--- OUTSIDE RECORDS SUMMARY | 2025-07-01 07:43 | XMS_ITS | Clinical Summary ---
[facility] Organization [facility] Address [address] [place] [address] Care Team Providers Care Tunnel Mucker Name Role Phone Julio C Oleary MD Primary Care Provider +1- [phone] Allergies Active Allergy Reactions Criticality Noted Date Comments Atorvastatin Unknown - Low Severity 06/10/2025 Colesevelam Unknown - Low Severity 06/10/2025 Ezetimibe Unknown - Low Severity 06/10/2025 Lisinopril Unknown - Low Severity 06/10/2025 Naproxen Itching Low 10/04/2022 Pitavastatin Unknown - Low Severity 06/10/2025 Pravastatin Unknown - Low Severity 06/10/2025 Red Yeast Rice Unknown - Low Severity Rosuvastatin Unknown - Low Severity 06/10/2025 Simvastatin Unknown - Low Severity 06/10/2025 Medications traMADol (ULTRAM) 50 MG tablet Take [...] 1 tablet by mouth Daily. 10/18/2024 Active gabapentin (NEURONTIN) 600 MG tablet Take 1 tablet by mouth 3 (Three) Times a Day. Active aspirin 325 MG tablet Take 1 tablet by mouth Daily. Active Active Problems Problem Noted Date Diagnosed Date Insomnia 11/16/2023 CSA (central sleep apnea) 01/12/2023 Assessment & Plan (06/10/2025 8:53 AM EDT): Assessment & Plan (12/13/2024 9:04 AM EDT): [...] verbalizes understanding. Pressure adjustments were not made. [employer] company has been called to reset his [...] of the nodules. 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 Vitamin D [...] Resolved Date DVT (deep venous thrombosis) 01/12/2023 Encounters Date Type Department Care Team Description 06/10/2025 9:00 AM EDT Office Visit [facility] [address] [place], [place] [address] Leigha Robin APRN CSA (central sleep apnea) (Primary Dx) 06/10/2025 Travel from Last 3 Months Immunizations Immunization Administration Dates Next Due 31-influenza [...] Pulse 69 06/10/2025 8:37 AM EDT Temperature 36.8 C (98.2 F) 06/12/2013 11:39 AM EDT Respiratory Rate 16 06/12/2013 11:39 AM EDT Oxygen Saturation 93% 06/10/2025 8:37 AM EDT Inhaled Oxygen Concentration - - Weight 133 kg (294 lb) 06/10/2025 8:37 AM EDT Height 182.9 cm (6') 06/10/2025 8:37 AM EDT Body Mass Index 39.87 06/10/2025 8:37 AM EDT Plan of Treatment Upcoming Encounters Date Type Department Care Team (Late st Contact Info) Description 12/09/2025 8:30 AM EDT Office Visit [facility] [address] [place] [address] Leigha Robin APRN [address] [place] [address] Health Maintenance Due Date Last Done Comments LIPID PANEL 1955 COLOGUARD 11/06/2000 COLON CANCER SCREENING 5 YEA R SIGMOIDOSCOPY 11/06/2000 CT COLONOGRAPHY 11/06/2000 FECAL OCCULT BLOOD TEST 11/06/2000 FIT Testing (1 year) 11/06/2000 ANNUAL WELLNESS VISIT 12/05/2017 COLONOSCOPY 11/17/2020 11/17/2010, 11/16/2005 COLORECTAL CANCER SCREENING 11/17/2020 COVID-19 Vaccine (3 - Modern a risk series) 09/03/2021 08/06/2021, 11/13/2020, 10/16/2020 INFLUENZA VACCINE 03/22/2025 07/06/2023, , 06/09/2020, Additional history exists TDAP/TD VACCINES (3 - Td or Tdap) 10/06/2033 , 09/14/2011 ZOSTER VACCINE Completed 06/12/2019, 050 08/2018, 10/14/2017 HEPATITIS C SCREENING Completed 10/04/2022 Pneumococcal Vaccine 50+ Completed , 05/19/2021, 10/04/2016, Additional history exists Procedures Procedure Name Priority Date/Time Associated Diagnosis Comments SCANNED - PULMONARY RESULTS 06/10/2025 from Last 3 Months Results * Pulmonary Results Scan (06/10/2025) Leigha Robin APRN PFT ORDERABLES Final Resu lt from Last 3 Months Insurance [employer] MED[employer]ARE ADVANTAGE O Care Teams Tunnel Mucker Relationship Specialty Start Date End Date Julio C Oleary MD [address] [place] [address] PCP - General Family Medicine 02/23/23
--- OUTSIDE RECORDS SUMMARY | 2025-07-01 07:44 | XMS_ITS | Data Portability ---
Author Organization MS - [facility] [place] & MARKIE Osei ADMIN Address [address] [place] [id number] Assessment Encounter Date Assessment Date Assessment LastModified [...] TID for 1 month #180, 2 refills [email or web address] Not available 06/01/2022 07:23:27 08/25/2022 08/25/2022 Telehealth visit is being conducted from [address] [place] [address]. This was a real-time clinical encounter over [[email or web address] ]. Consent was obtained to engage in [...] 6-8 weeks to discuss the treatment plan. Not available 10/14/2022 12:44:53 Plan of Treatment Reminders Order Date Submit Date Provider Last Modified By Organization Details Last Modified Time Details Appointments None recorded. Lab unlisted lab - systemic lupus profile A 2021 SUJATA [facility], [address], [address], [place], [address], 12:10:07 unlisted lab - systemic lupus profile B 2021 022 SUJATA [facility], [address], [address], [place], [address], 12:10:08 JANESSA (antinucle ar antibodies ) screen, serum 2021 [email or web address] [facility], [address], [address], [place], [address], 08:52:27 lipid panel, serum 2021 SUJATA [facility], [address], [place], [address], 03:06:31 TSH, ultra-sens itive, serum 2021 022 SUJATA [facility], [address], [place], [address], 03:06:32 vitamin B12 + folate, serum or blood 2021 022 SUJATA [facility], [address], [place], [address], 03:06:32 HbA1c (hemoglobi n A1c), blood 2021 022 SUJATA [facility], [address], [place], [address], 2 03:06:32 CBC w/ auto diff 2021 SUJATA [facility], [address], [address], [place], [address], 2 03:06:30 CMP, serum or plasma 2021 SUJATA [facility], [address], [address], [place], [address], 2 03:06:31 C reactive protein, QN, serum or plasma 2021 SUJATA [facility], [address], [address], [place], [address], 03:06:35 ESR (erythrocy te sedimentat ion rate), blood 2021 SUJATA [facility], [address], [address], [place], [address], 2 03:06:35 JANESSA (antinucle ar antibodies ) screen, serum 2021 SUJATA [facility], [address], [address], [place], [address], 2 03:06:34 rf (rheumatoi d factor) iga, serum 2021 SUJATA [facility], [address], [address], [place], [address], 2 03:06:34 uric acid, serum or plasma 2021 SUJATA [facility], [address], [address], [place], [address], 03:06:34 ccp (cyclic citrullina calin peptide) iga+igg, serum 2021 GULF BREEZE [facility], [address], [facility] [address], [place], [address], 03:06:33 Referral None recorded. Procedures None recorded. Surgeries None recorded. Imaging [email or web address] [address], [address], [place], [address], 3 11:10:19 Medication Orders neomycin-p olymyxin-h ydrocort 3.5 mg-10,000 unit/mL-1 % ear drops,susp 2021 GULF BREEZE [facility] #[id number], [address], [place], [place], [id number], 2 08:16:50 amoxicilli n 875 mg-potassi um clavulanat e 125 mg tablet 2021 [facility] #[id number], [address], [place], [place], [id number], 2 08:16:51 triamcinol one acetonide 0.1 % topical cream 2021 [facility] #[id number], [address], [place], [place], [id number], 2 08:16:51 gabapentin 600 mg tablet 2021 [facility] [employer] #[id number], [address] [place], [place], [id number], 14:47:53 Patient TargetsNo targets recorded. Patient InstructionsNo instructions recorded. Reason for Referral None Reported. Results Created Date Observation Date Name Description Value Unit Range Abnormal Flag Note LastModifiedBy Organization Detail LastModifiedTime 06/02/20 06/03/2022 CBC WITH DIFFE RENTI AL/PL ATELE T WBC 9.4 x10e3 /uL 3.4-10 .8 Not Available [facility] ([facility]) [address] [facility], [place], [address], 06/14/2022 03:06:30 06/02/20 22 06/03/2022 CBC WITH DIFFE RENTI AL/PL ATELE T RBC 4.57 x10e6 /uL 4.14-5 .80 Not Available [facility] ([facility]) [address] [facility], [place], [address], 06/14/2022 03:06:30 06/02/20 22 06/03/2022 CBC WITH DIFFE RENTI AL/PL ATELE T hemoglobin 14.9 g/dL 13.0-1 7.7 Not Available [facility] ([facility]) [address] [facility], [place], [address], 06/14/2022 03:06:30 06/02/20 22 06/03/2022 CBC WITH DIFFE RENTI AL/PL ATELE T hematocrit 43.4 % 37.5-5 1.0 Not Available [facility] ([facility]) [address] [facility], [place], [address], 06/14/2022 03:06:30 06/02/2006/03/2022 CBC WITH DIFFE RENTI AL/PL ATELE T MCV 95 fL 79-97 Not Available [facility] ([facility]) [address] [place], [address], 06/14/2022 03:06:30 06/02/2006/03/2022 CBC WITH DIFFE RENTI AL/PL ATELE T MCH 32.6 pg 26.6-3 3.0 Not Available [facility] ([facility]) [address] [place], [address], 06/14/2022 03:06:30 06/02/20 06/03/2022 CBC WITH DIFFE RENTI AL/PL ATELE T MCHC 34.3 g/dL 31.5-3 5.7 Not Available [facility] ([facility]) [address] [facility], [place], [address], 06/14/2022 03:06:30 06/02/20 22 06/03/2022 CBC WITH DIFFE RENTI AL/PL ATELE T RDW 13.0 % 11.6-1 5.4 Not Available [facility] ([facility]) [address] [facility], [place], [address], 06/14/2022 03:06:30 06/02/2006/03/2022 CBC WITH DIFFE RENTI AL/PL ATELE T platelets 308 x10e3 /uL 150-45 0 Not Available [facility] ([facility]) [address] [facility], [place], [address], 06/14/2022 03:06:30 06/02/20 22 06/03/2022 CBC WITH DIFFE RENTI AL/PL ATELE T neutrophils 59 % not estab. Not Available [facility] ([facility]) [address] [facility], [place], [address], 06/14/2022 03:06:30 06/02/20 22 06/03/2022 CBC WITH DIFFE RENTI AL/PL ATELE T lymphs 23 % not estab. Not Available [facility] ([facility]) [address] [facility], [place], [address], 06/14/2022 03:06:30 06/02/20 22 06/03/2022 CBC WITH DIFFE RENTI AL/PL ATELE T monocytes 11 % not estab. Not Available [facility] ([facility]) [address] [facility], [place], [address], 06/14/2022 03:06:30 06/02/20 22 06/03/2022 CBC WITH DIFFE RENTI AL/PL ATELE T eos 4 % not estab. Not Available [facility] ([facility]) [address] [facility], [place], [address], 06/14/2022 03:06:30 06/02/20 22 06/03/2022 CBC WITH DIFFE RENTI AL/PL ATELE T basos 1 % not estab. Not Available [facility] ([facility]) [address] [facility], [place], [address], 06/14/2022 03:06:30 06/02/20 22 06/03/2022 CBC WITH DIFFE RENTI AL/PL ATELE T immature cells LEAD SQL DEVELOPER Not Available [facility]) [address] [facility], [place], [address], 06/14/2022 03:06:30 06/02/20 22 06/03/2022 CBC WITH DIFFE RENTI AL/PL ATELE T neutrophils (absolute) 5.6 x10e3 /uL 1.4-7. 0 Not Available [facility] ([facility]) [address] [place], [address], 06/14/2022 03:06:30 06/02/20 22 06/03/2022 CBC WITH DIFFE RENTI AL/PL ATELE T lymphs (absolute) 2.2 x10e3 /uL 0.7-3. 1 Not Available [facility] ([facility]) [address] [place], [address], 06/14/2022 03:06:30 06/02/20 22 06/03/2022 CBC WITH DIFFE RENTI AL/PL ATELE T monocytes(ab solute) 1.0 x10e3 /uL 0.1-0. 9 above high normal Not Available [facility] ([facility]) [address] [place], [address], 06/14/2022 03:06:30 06/02/20 22 06/03/2022 CBC WITH DIFFE RENTI AL/PL ATELE T eos (absolute) 0.4 x10e3 /uL 0.0-0. 4 Not Available [facility] ([facility]) [address] [facility], [place], [address], 06/14/2022 03:06:30 06/02/20 22 06/03/2022 CBC WITH DIFFE RENTI AL/PL ATELE T baso (absolute) 0.1 x10e3 /uL 0.0-0. 2 Not Available [facility] ([facility]) [address] [facility], [place], [address], 06/14/2022 03:06:30 06/02/20 22 06/03/2022 CBC WITH DIFFE RENTI AL/PL ATELE T immature granulocytes 2 % not estab. Not Available [facility] ([facility]) [address] [facility], [place], [address], 06/14/2022 03:06:30 06/02/20 22 06/03/2022 CBC WITH [...] frankie signi fican ce.) Not Available [facility] ([facility]) [address] [facility], [place], [address], 06/14/2022 03:06:30 06/02/20 22 06/03/2022 CBC WITH DIFFE RENTI AL/PL ATELE T NRBC LEAD SQL DEVELOPER Not Available [facility] ([facility]) [address] [facility], [place], [address], 06/14/2022 03:06:30 06/02/20 22 06/03/2022 CBC WITH DIFFE RENTI AL/PL ATELE T hematology comments: LEAD SQL DEVELOPER Not Available [facility] ([facility]) [address] [facility], [place], [address], 06/14/2022 03:06:30 06/02/20 22 06/03/2022 COMP. METAB OLIC PANEL (14) glucose 108 mg/dL 70-99 above high normal Ple ase note refer ence inter job ring e Not Available [facility] ([facility]) [address] [facility], [place], [address], 06/14/2022 03:06:31 06/02/20 22 06/03/2022 COMP. METAB OLIC PANEL (14) BUN 20 mg/dL 8-27 Not Available [facility] ([facility]) [address] [facility], [place], [address], 06/14/2022 03:06:31 06/02/20 22 06/03/2022 COMP. METAB OLIC PANEL (14) creatinine 1.39 mg/dL 0.76-1 .27 above high normal Not Available [facility] ([facility]) [address] [facility], [place], [address], 06/14/2022 03:06:31 06/02/20 22 06/03/2022 COMP. METAB OLIC PANEL (14) eGFR 56 mL/mi n/1.7 3 >59 below low normal Not Available [facility] ([facility]) [address] [facility], [place], [address], 06/14/2022 03:06:31 06/02/20 22 06/03/2022 COMP. METAB OLIC PANEL (14) BUN/creatini ne ratio 14 06-14 Not Available [facility] ([facility]) [address] [facility], [place], [address], 06/14/2022 03:06:31 06/02/20 22 06/03/2022 COMP. METAB OLIC PANEL (14) sodium 141 mmol/ L 134-14 4 Not Available [facility] ([facility]) [address] [facility] [place], [address], 06/14/2022 03:06:31 06/02/20 22 06/03/2022 COMP. METAB OLIC PANEL (14) potassium 4.0 mmol/ L 3.5-5. 2 Not Available [facility] ([facility]) [address] [facility] [place], [address], 06/14/2022 03:06:31 06/02/20 22 06/03/2022 COMP. METAB OLIC PANEL (14) chloride 103 mmol/ L 96-106 Not Available [facility] ([facility]) [address] [facility], [place], [address], 06/14/2022 03:06:31 06/02/20 22 06/03/2022 COMP. METAB OLIC PANEL (14) carbon dioxide, total 22 mmol/ L 20-29 Not Available [facility] ([facility]) [address] [facility] [place], [address], 06/14/2022 03:06:31 06/02/20 22 06/03/2022 COMP. METAB OLIC PANEL (14) calcium 9.5 mg/dL 8.6-10 .2 Not Available [facility] ([facility]) [address] [facility] [place], [address], 06/14/2022 03:06:31 06/02/20 22 06/03/2022 COMP. METAB OLIC PANEL (14) protein, total 7.1 g/dL 6.0-8. 5 Not Available [facility] ([facility]) [address] [facility] [place], [address], 06/14/2022 03:06:31 06/02/20 22 06/03/2022 COMP. METAB OLIC PANEL (14) albumin 4.3 g/dL 3.8-4. 8 Not Available [facility] ([facility]) [address] [place], [address], 06/14/2022 03:06:31 06/02/20 22 06/03/2022 COMP. METAB OLIC PANEL (14) globulin, total 2.8 g/dL 1.5-4. 5 Not Available [facility] ([facility]) [address] [place], [address], 06/14/2022 03:06:31 06/02/20 22 06/03/2022 COMP. METAB OLIC PANEL (14) A/G ratio 1.5 1.2-2. 2 Not Available [facility] ([facility]) [address] [place], [address], 06/14/2022 03:06:31 06/02/20 22 06/03/2022 COMP. METAB OLIC PANEL (14) bilirubin, total 0.4 mg/dL 0.0-1. 2 Not Available [facility] ([facility]) [address] [place], [address], 06/14/2022 03:06:31 06/02/20 22 06/03/2022 COMP. METAB OLIC PANEL (14) alkaline phosphatase 87 IU/L 44-121 Not Available [facility]) [address] [facility] [place], [address], 06/14/2022 03:06:31 06/02/20 22 06/03/2022 COMP. METAB OLIC PANEL (14) AST (SGOT) 27 IU/L 0-40 Not Available [facility] ([facility]) [address] [facility] [place], [address], 06/14/2022 03:06:31 06/02/20 22 06/03/2022 COMP. METAB OLIC PANEL (14) ALT (SGPT) 34 IU/L 0-44 Not Available [facility] ([facility]) [address] [facility] [place], [address], 06/14/2022 03:06:31 06/02/20 22 06/03/2022 LIPID PANEL WITH LDL/H DL RATIO cholesterol, total 149 mg/dL 100-19 9 Not Available [facility] ([facility]) [address] [facility], [place], [address], 06/14/2022 03:06:31 06/02/20 22 06/03/2022 LIPID PANEL WITH LDL/H DL RATIO triglyceride s 224 mg/dL 0-149 above high normal Not Available [facility] ([facility]) [address] [facility], [place], [address], 06/14/2022 03:06:31 06/02/20 22 06/03/2022 LIPID PANEL WITH LDL/H DL RATIO HDL cholesterol 37 mg/dL >39 below low normal Not Available [facility] ([facility]) [address] [facility], [place], [address], 06/14/2022 03:06:31 06/02/20 22 06/03/2022 LIPID PANEL WITH LDL/H DL RATIO VLDL cholesterol frankie 37 mg/dL 5-40 Not Available [facility] ([facility]) [address] [facility], [place], [address], 06/14/2022 03:06:31 06/02/20 22 06/03/2022 LIPID PANEL WITH LDL/H DL RATIO LDL chol calc ([facility]) 75 mg/dL 0-99 Not Available [facility]) [address] [facility], [place], [address], 06/14/2022 03:06:31 06/02/20 22 06/03/2022 LIPID PANEL WITH LDL/H DL RATIO comment: LEAD SQL DEVELOPER Not Available [facility] ([facility]) [address] [facility], [place], [address], 06/14/2022 03:06:31 06/02/20 22 06/03/2022 LIPID PANEL WITH LDL/H DL RATIO LDL/HDL ratio 2.0 ratio 0.0-3. 6 LDL/H DL Ratio Men Women 1/2 Avg.R isk 1.0 1.5 Avg.R isk 3.6 3.2 2X Avg.R isk 6.2 5.0 3X Avg.R isk 8.0 6.1 Not Available [facility] ([facility]) [address] [place], [address], 06/14/2022 03:06:31 06/02/20 22 06/03/2022 VITAM IN B12 AND FOLAT E vitamin B12 593 pg/mL 232-12 45 Not Available [facility] ([facility]) [address] [place], [address], 06/14/2022 03:06:32 06/02/2006/03/2022 VITAM IN B12 AND FOLAT E folate (folic acid), serum 8.5 NG/mL >3.0 A serum folat e patricia ntrat ion of less than 3.1 ng/mL is consi dered to repre sent clini frankie defic iency . Not Available [facility] ([facility]) [address] [facility], [place], [address], 06/14/2022 03:06:32 06/02/2006/03/2022 HEMOG LOBIN A1C hemoglobin A1C 6.4 % 4.8-5. 6 above high normal Predi abete s: 5.7 - 6.4 Diabe macario: >6.4 Glyce aj contr ol for adult s with diabe macario: <7.0 Not Available [facility] ([facility]) [address] [place], [address], 06/14/2022 03:06:32 06/02/20 22 06/03/2022 TSH TSH 1.850 uIU/m L 0.450- 4.500 Not Available [facility] ([facility]) [address] [place], [address], 06/14/2022 03:06:32 06/02/20 22 06/03/2022 ANTI- CCP AB, IGG/I GA anti-ccp Ab, IgG/IgA 10 units 0-19 Negat nessa <20 Weak posit nessa 20 - 39 Moder ate posit nessa 40 - 59 Stron g posit nessa >59 Not Available [facility] ([facility]) [address] [place], [address], 06/14/2022 03:06:33 06/02/20 22 06/13/2022 RF, IGA BY EIA (RDL) rf, IgA by EIA (rdl) <7 U <7 Not Available [facility] [address] [place], [address], 06/14/2022 03:06:34 06/02/20 22 06/03/2022 URIC ACID uric acid 9.1 mg/dL 3.8-8. 4 above high normal Gerard emdina t for gout patie nts: <6.0 Not Available [facility] ([facility]) [address] [place], [address], 06/14/2022 03:06:34 06/02/20 22 06/03/2022 JANESSA W/REF NAHUM IF POSIT NESSA JANESSA direct Positi ve negati ve abnormal Not Available [facility] ([facility]) [address] [place], [address], 06/14/2022 03:06:34 06/02/2006/03/2022 JANESSA W/REF NAHUM IF POSIT NESSA anti-DNA (ds) Ab qn 4 IU/mL 0-9 Negat nessa <5 Equiv ocal 5 - 9 Posit nessa >9 Not Available [facility] ([facility]) [address] [place], [address], 06/14/2022 03:06:34 06/02/20 22 06/03/2022 JANESSA W/REF NAHUM IF POSIT NESSA vegetable vendor antibodies <0.2 ai 0.0-0. 9 Not Available [facility] ([facility]) [address] [place], [address], 06/14/2022 03:06:34 06/02/20 22 06/03/2022 JANESSA W/REF NAHUM IF POSIT NESSA silva antibodies <0.2 ai 0.0-0. 9 Not Available [facility] ([facility]) [address] [place], [address], 06/14/2022 03:06:34 06/02/20 22 06/03/2022 JANESSA W/REF NAHUM IF POSIT NESSA antisclerode rma-70 antibodies <0.2 ai 0.0-0. 9 Not Available [facility] ([facility]) [address] [place], [address], 06/14/2022 03:06:34 06/02/20 22 06/03/2022 JANESSA W/REF NAHUM IF POSIT NESSA sjogren's anti-ss-A <0.2 ai 0.0-0. 9 Not Available [facility] ([facility]) [address] [place], [address], 06/14/2022 03:06:34 06/02/20 22 06/03/2022 JANESSA W/REF NAHUM IF POSIT NESSA sjogren's anti-ss-B <0.2 ai 0.0-0. 9 Not Available [facility] ([facility]) [address] [place], [address], 06/14/2022 03:06:34 06/02/20 22 06/03/2022 JANESSA W/REF NAHUM IF POSIT NESSA antichromati n antibodies 2.0 ai 0.0-0. 9 above high normal Not Available [facility] ([facility]) [address] [place], [address], 06/14/2022 03:06:34 06/02/20 22 06/03/2022 JANESSA W/REF NAHUM IF POSIT NESSA anti-jasmin-1 <0.2 ai 0.0-0. 9 Not Available [facility] ([facility]) [address] [facility], [place], [address], 06/14/2022 03:06:34 06/02/20 22 06/03/2022 JANESSA W/REF NAHUM IF POSIT NESSA anti-centrom ere B antibodies <0.2 ai 0.0-0. 9 Not Available [facility] ([facility]) [address] [facility], [place], [address], 06/14/2022 03:06:34 06/02/2006/03/2022 JANESSA W/REF NAHUM IF [...] ----- ----- ----- ----- --- ----- ---- SALES TEAM LEADER Mixed Conne ctive Tissu e Disea se 95% (U1 nRNP, SLE 30 - 50% anti- ribon ucleo prote in) Polym yosit is and/o r [place] tomyo sitis 20% ----- ----- ----- ----- - ----- ----- ----- ----- ---- ----- ---- Scl-7 0 (anti DNA Scler oderm a (diff use) 20 - 35% topoi jonathan ase) Crest 13% ----- ----- ----- ----- - ----- ----- ----- ----- ---- ----- ---- Jasmin-1 Polym yosit is and/o r [place] tomyo sitis 20 - 40% ----- ----- ----- ----- - ----- ----- ----- ----- ---- ----- ---- Centr omere B Scler oderm a - Crest varia nt 80% Not Available [facility] ([facility]) [address] [place], [address], 06/14/2022 03:06:34 06/02/2006/03/2022 SEDIM ENTAT ION RATE- WESTE RGREN sedimentatio n rate-westerg anthony 15 mm/HR 0-30 Not Available [facility] ([facility]) [address] [place], [address], 06/14/2022 03:06:35 06/02/2006/03/2022 C-SUKHDEV CTIVE PROTE IN, QUANT C-reactive protein, quant 4 mg/L 0-10 Not Available [facility] ([facility]) [address] [place], [address], 06/14/2022 03:06:35 08/11/20 22 08/12/2022 SYSTE AJ LUPUS PROFI LE A vegetable vendor antibodies 0.2 ai 0.0-0. 9 Not Available [facility] ([facility]) [address] [place], [address], 08/12/2022 12:10:07 08/11/20 22 08/12/2022 SYSTE AJ LUPUS PROFI LE A silva antibodies <0.2 ai 0.0-0. 9 Not Available [facility] ([facility]) [address] [place], [address], 08/12/2022 12:10:07 08/11/20 22 08/12/2022 SYSTE AJ LUPUS PROFI LE A rheumatoid factor (rf) <10.0 IU/mL <14.0 Not Available [facility] ([facility]) [address] [place], [address], 08/12/2022 12:10:07 08/11/20 22 08/12/2022 SYSTE AJ LUPUS PROFI LE A antichromati n antibodies 1.1 ai 0.0-0. 9 above high normal Not Available [facility] ([facility]) [address] [place], [address], 08/12/2022 12:10:07 08/11/20 22 08/12/2022 SYSTE AJ LUPUS PROFI LE A sjogren's anti-ss-A <0.2 ai 0.0-0. 9 Not Available [facility] ([facility]) [address] [place], [address], 08/12/2022 12:10:07 08/11/20 22 08/12/2022 SYSTE AJ LUPUS PROFI LE A sjogren's anti-ss-B <0.2 ai 0.0-0. 9 Not Available [facility] ([facility]) [address] [place], [address], 08/12/2022 12:10:07 08/11/20 22 08/12/2022 SYSTE AJ LUPUS PROFI LE A anti-DNA (ds) Ab qn 4 IU/mL 0-9 Negat nessa <5 Equiv ocal 5 - 9 Posit nessa >9 Not Available [facility] ([facility]) [address] [place], [address], 08/12/2022 12:10:07 08/11/20 22 08/12/2022 SYSTE AJ LUPUS PROFI LE B complement C4, serum 31 mg/dL 12-38 Not Available [facility] ([facility]) [address] [place], [address], 08/12/2022 12:10:08 08/11/20 22 08/12/2022 SYSTE AJ LUPUS PROFI LE B complement C3, serum 186 mg/dL 82-167 above high normal Not Available [facility] ([facility]) [address] [place], [address], 08/12/2022 12:10:08 08/11/20 22 08/12/2022 SYSTE AJ LUPUS PROFI LE B JANESSA direct POSITI VE negati ve abnormal Not Available [facility] ([facility]) [address], [place], [address], 08/12/2022 12:10:08 11/16/19 23 11/15/2022 home sleep study No observ ation record ed. [facility] [address] [facility] [address] [address], [place], [address], 11/18/2022 14:52:10 Result Notes None recorded. Problems Name Problem SNOMED Code Status Onset Date Resolution Date Notes Provider Name and Address Organization Details Recorded Time Deep venous thrombosis of lower extremity 092965559 Active 2003 Dhara Flores [facility] [place] 2 07:52:45 Essential hypertensi on 37099511 Active 2021 JANEY PIMENTEL NP [address] [place], [address] , [facility] [place] 2 09:29:10 Hyperlipid emia 49572911 Active 2021 JANEY PIMENTEL NP [address] [place], [address] , [facility] [place] 2 09:29:16 Sleep apnea 85760852 Active 2021 [place], [address] , [facility] - [facility] & [place] 2 09:29:22 Gastroesop hageal reflux disease 327452029 Active [address] [place], [address] , [facility] - [facility] & [place] 2 09:29:31 Osteoarthr itis 470982942 Active [address] [place], [address] , [place] - [facility] - [place] & [place] 2 09:29:36 Vitamin D deficiency 16500163 Active 2021 JANEY PIMENTEL, [employer] [address] [facility], [place], [address] , [place] - [facility] - [place] & [place] 2 09:29:58 Chest pain 81438416 Active 2021 Dhara Gilvin null, [place] [facility] [place] & [place] 2 07:52:59 Diverticul osis of colon 071292345 Active 2021 Dhara Gilvin null, [place] [facility] [place] & [place] 2 07:53:21 Proteinuri a 71132632 Active 2021 Dhara Gilvin null, [place] [facility] [place] & [place] 2 07:53:36 Chronic kidney disease 475252683 Active 2021 Dhara Gilvin null, [place] [facility] [place] & [place] 2 07:53:51 Allergic rhinitis 55730776 Active 2021 Dhara Gilvin null, [place] 2 07:54:10 Opioid dependence 61456769 Active 2022 Heather Wilder [place] 3 15:49:13 Bilateral carpal tunnel syndrome 2756068010829 9101 Active 2022 Heather Wilder [place] 3 15:49:15 Chronic pain syndrome 581466587 Active 2022 Heather Wilder [place] 3 15:49:17 Obesity 422638651 Active 2022 Heather Wilder [place] 3 15:49:18 Spondylosi s without myelopathy 43153919 Active 2022 Heather Wilder [place] 3 15:49:21 Chronic gouty arthritis 71989060 Active 2022 Heather Wilder [place] 3 15:49:23 Plantar fasciitis 972772239 Active 2022 Heather Wilder [place] 3 15:49:26 Neuropathy of lower limb 560260338 Active 2022 Heather Wilder [place] 3 15:49:29 Problem Notes None recorded. Procedures Surgical History Date Name Laterality Status Provider Name and Address Organization Details Recorded Time 1 colonoscopy completed Dhara MARIEE - [facility] - [place] & [place] 06/02/2022 07:54:58 6 colonoscopy completed Dhara MARIEE - [facility] - [place] & [place] 06/02/2022 07:54:52 Imaging Results None recorded. Procedure Notes None recorded. Medical Equipment None Reported. Allergies Allergen ID Allergen Name Allergen Category Reaction Reaction Severity Criticality Documentation Date Start Date Code Code System Note Provider Name and Address Organization Details Recorded Time 77236 Anaprox medicatio n Not available Not available Not available 05/28/202286194 9 RxNorm JANEY PIMENTEL NP [address] , [place], [address], [place] [facility] [facility] & [place] 2 09:21:51 96418 Crestor medicatio n Not available Not available Not available 05/28/2022 18478 4 RxNorm JANEY PIMENTEL NP [address], [place], [address], [place] 2 09:22:01 68551 Lipitor medicatio n Not available Not available Not available 05/28/2022 13391 5 RxNorm JANEY PIMENTEL NP [address], [place], [address], [place] [facility] [facility] & [place] 2 09:22:11 00399 etodolac medicatio n Not available Not available Not available 05/28/2022 85976 RxNorm JANEY PIMENTEL, [employer] [address], [place], [address], [place] [facility] - [place] & [place] 2 09:22:52 38535 Naprosyn medicatio n Not available Not available Not available 05/28/2022 02480 2 RxNorm JANEY PIMENTEL, [employer] [address], [place], [address], [place] & [place] 2 09:23:01 87877 pravastat in medicatio n Not available Not available Not available 05/28/2022 53653 RxNorm JANEY PIMENTEL, [employer]AD [employer] [address], [place], [address], [place] & [place] 2 09:23:21 33605 lisinopri l medicatio n Not available Not available Not available 05/28/2022 51103 RxNorm JANEY PIMENTEL, LEAD [employer] [address], [place], [address], [place] & [place] 2 09:23:28 13803 Livalo medicatio n Not available Not available Not available 05/28/2022 23236 2 RxNorm JANEY PIMENTEL, [employer] DEVEL[employer] [address], [place], [address], [place] 2 09:23:35 07751 Welchol medicatio n Not available Not available Not available 05/28/2022 90830 8 RxNorm JANEY PIMENTEL, LEAD [employer] DEVELOPER [address], [place], [address], [place] & [place] 2 09:23:41 33282 Zetia medicatio n Not available Not available Not available 05/28/2022 40921 9 RxNorm JANEY MARGARITO, [employer]AD [employer] DEVELOPER [address], [place], [address], [place] [facility] & [place] 2 09:24:03 34825 Zocor medicatio n Not available Not available Not available 05/28/2022 19506 3 RxNorm JANEY PIMENTEL, BETTY [address], [place], [address], [place] 2 09:24:09 50923 red yeast rice food,medi cation Not available Not available Not available 05/28/2022 73943 0 RxNorm JANEY PIMENTEL NP [address], [place], [address], [place] 2 09:24:25 Medications Name Sig Start Date [...] Updated DateTime 08/25/2022 179.07 cm [facility] & [place] 08/25/2022 08:19:31 Date Recorded Body height Body mass index (BMI) Body weight Body temperature Oxygen saturation Oxygen saturation in Arterial blood by Pulse oximetry Heart rate Systolic And Diastolic Provider Name and Address Organization Details Last Updated DateTime 3 179.07 cm 44.3 kg/m2 740193. 13 g 98 [degF] 92 % 92 % 68 /min 153/88 mm[Hg] Anna Rod [facility] & [place] 3 08:24:13 Date Recorded Body height Body mass index (BMI) Body weight Body temperature Oxygen saturation Oxygen saturation in Arterial blood by Pulse oximetry Heart rate Respiratory rate Systolic And Diastolic Provider Name and Address Organization Details Last Updated DateTime 2 182.88 cm 43.8 kg/m2 983418. 05 g 96.9 [degF] 93 % 93 % 66 /min 18 /min 146/85 mm[Hg] kristen MARIEE [facility] & [place] 2 10:11:45 Date Recorded Body height Body mass index (BMI) Body weight Body temperature Oxygen saturation Oxygen saturation in Arterial blood by Pulse oximetry Heart rate Systolic And Diastolic Provider Name and Address Organization Details Last Updated DateTime 2 179.07 cm 45.8 kg/m2 419516. 93 g 98.1 [degF] 96 % 96 % 74 /min 160/88 mm[Hg] Dhara MARIEE [facility] & [place] 2 15:15:39 Date Recorded Body height Body mass index (BMI) Body weight Body temperature Oxygen saturation Oxygen saturation in Arterial blood by Pulse oximetry Heart rate Systolic And Diastolic Provider Name and Address Organization Details Last Updated DateTime 2 179.07 cm 44.3 kg/m2 503126. 41 g 97 [degF] 94 % 94 % 70 /min 140/90 mm[Hg] Dhara MARIEE [facility] & [place] 2 07:57:04 Social History Question Answer Notes LastModified by [employer] Details LastModified Time Tobacco Smoking Status Never Smoker JANEY PIMENTEL, BETTY [address] [place], [address], [facility] & [place] 05/28/2022 09:31:43 What Is Your Level Of Caffeine Consumption? Occasional Information not available 06/02/2022 What Was The Date Of Your Most Recent Tobacco Screening? 06/02/2022 Information not available 06/02/2022 Has Tobacco Cessation Counseling Been Provided? No [email or web address] Information not available 05/28/2022 Sex: Unknown Functional Status Question Answer Note LastModified by [employer] Details LastModified Time Do you use any illicit or recreational drugs? No [email or web address] Information not available 05/28/2022 Do you or have you ever used any other forms of tobacco or nicotine? No [email or web address] Information not available 05/28/2022 What is your level of alcohol consumption? None [email or web address] Information not available 05/28/2022 Mental Status None [...] Y Coronary Artery Disease N Gout N Head Trauma/Injury N Hernia N Thyroid Problems N Depression N COPD N Anemia N Ulcers N Heart Attack (LA) N Anxiety Disorder N Diabetes N Bleeding Disorder N Arthritis Y Tuberculosis N Acid Reflux (GERD) Y Cancer N Stroke N Asthma N Substance Abuse N Back Injury N High Cholesterol Y Hepatitis N Liver Disease N Heart Disease N Fibromyalgia N Headaches N Hypertension Y Osteoporosis N Kidney Disease Y Immunizations Vaccine Type Date Status Note Provider Nam e and Address Organization Details Recorded Time Hep A, adult 8 completed Dhara [place] null, [place] 08/11/2022 07:57:39 pneumococcal polysaccharide PPV23 6 completed Dhara Sandra [place] 08/11/2022 07:57:39 pneumococcal polysaccharide PPV23 1 completed Dhara [place] 08/11/2022 07:57:39 Pneumococcal conjugate PCV 13 7 completed Dhara [place] 08/11/2022 07:57:39 zoster recombinant 9 completed Dhara [place] - [facility] & [place] 08/11/2022 07:57:39 zoster recombinant 9 completed Dhara [place] 08/11/2022 07:57:39 Tdap 2 completed Dhara [place] 08/11/2022 07:57:39 zoster live 8 completed Dhara Flores [place] 08/11/2022 07:57:39 COVID-19, mRNA, LNP-S, PF, 100 mcg/0.5mL dose or 50 mcg/0.25mL dose 1 completed ELLITO KAPLAN NP [address] [place] [address], [address] [place] [address], [place] [facility] & [place] 06/14/2022 08:15:49 COVID-19, mRNA, LNP-S, PF, 100 mcg/0.5mL dose or 50 mcg/0.25mL dose 1 completed ELLIOT KAPLAN NP [address] [place] [address], [address] [place] [address], [place] [facility] & [place] 06/14/2022 08:15:49 Influenza, adjuvanted, trivalent, PF 8 completed ELLIOT KAPLAN NP [address] [place] [address], [place] [facility] & [place] 06/14/2022 08:15:49 Influenza, split virus, quadrivalent, preservative 0 completed ELLIOT KAPLAN NP [address] [place] [address], [address] [place] [address], [place] [facility] & [place] 06/14/2022 08:15:49 COVID-19, mRNA, LNP-S, PF, 100 mcg/0.5mL dose or 50 mcg/0.25mL dose 1 completed ELLIOT KAPLAN NP [address] [place] [address], [address] [place] [address], [place] [facility] & [place] 06/14/2022 08:15:49 Influenza, high-dose, quadrivalent, PF 2 completed Dhara neri, [place] [facility] & [place] 08/11/2022 07:57:39 Past Encounters Encounter ID Performer Location Encounter Start Date Encounter Closed Date Diagnosis/Indication Diagnosis SNOMED-CT Code Diagnosis ICD10 Code Diagnosis IMO Codes Diagnosis Note [id number] Reginald Delgado MD [facility] 8 ALKANI[address]Y REESE [address] 05/31/2022 09:42:34 05/31/2022 10:33:28 Osteoarthritis 678165794 M19.072 Plantar fasciitis 216888 003 M72.2 Neuropathy of lower limb 048043717 G57.93 Chronic go uty arthritis 56094286 M1A.09X0 Spondylosi s without myelopathy 41478093 M47.817 Obesity 433424603 E66.9 Chronic pain syndrome 37 2043009 G89.4 Bilateral carpal tunnel syndrome 5990787486 3856633 G56.01 Opioid dependence 855619 00 F11.20 [id number] ELLIOT KAPLAN NP [address] [address] 06/02/2022 15:03:20 06/02/2022 15:58:40 Dry skin 36014120 L85.3 stay hydratedus e of lotionmay decrease fluid pill but awaiting lab work Xerostomia 09562793 R68. 2 awaiting lab work and then may change for less of fluid pill Sleep apnea 10658241 G47 .30 Pain of mu ltiple joints 77938047 M25.50 awaiting lab workexerci se/weight management Fatigue 31024224 R53.83 Daytime hypersomnia 3177 401234 1973 G47.19 sleep study ordered Hyperglycemia 07190589 R 73.9 awaiting [id number] forced diet and lifestyle changes Hyperlipidemia 62444082 E78.5 Administra tion of influenza vaccine 84238358 Z23 [id number] ELLIOT KAPLAN NP [address] [address] 08/11/2022 07:46:55 08/11/2022 08:26:51 Acute left otitis media 025225927 H66.92 Patient presents for evaluation of ear infection. . Discussed orders with patient. Otitis ext andrei of left ear 4958787212 711649 H60.92 Anti-nucle ar factor detected 404402523 R76.8 recheck lab work todaycompl iance of chronic conditions Acute dermatitis 5725978 6 L30.9 skin is very dry, educated on keeping skin moist Fatigue 25413963 R53.83 needs sleep studyhas not been wearing machine due to recall [id number] Reginald Delgado MD [facility] [address] [address] 08/25/2022 08:12:15 08/25/2022 09:02:24 Neuropathy of lower limb 444408269 G57.93 Osteoarthritis 739478113 M19.072 Plantar fasciitis 453494 003 M72.2 Chronic go uty arthritis 66414036 M1A.09X0 Spondylosi s without myelopathy 60402885 M47.817 [id number] CESAR BEARD PA-C [facility] [address] [address] 10/11/2022 07:56:15 10/11/2022 08:27:28 Neuropathy of lower limb 208562818 G57.93 Osteoarthritis 669627832 M19.072 Plantar fasciitis 362971 003 M72.2 Chronic go uty arthritis 61060459 M1A.09X0 Spondylosi s without myelopathy 15855574 M47.817 Health Concerns Section Related Observation LastModified by Organization Detai ls LastModified Time None Recorded Concern Status LastModified by Organization Details LastModified Time None Recorded Advance Directives Directive None Recorded Payers Insurance Date Sequence Insurance Name Policy Number Policy Chua Covered Member ID Chua Member ID Guarantor Name 03/10/2024 1 [place] [id number] Giovanny B Fryman [id number] Giovanny B Fryman 05/17/2019 1 [place] VANT[place] - HMO) [id number] Giovanny B Fryman [id number] Giovanny B Fryman 08/07/2019 1 [id number] Giovanny B Fryman [id number] Giovanny B Fryman 03/10/2024 1 [place]AGE - [place]MO) [id number] Giovanny B Fryman [id number] Giovanny B Fryman Notes Date Note Type Note Provider Name and Address Organization Details Recorded Time 2 text/html ROS as noted in the HPI 65 year old male referred from Dr. Kaplan for chronic joint pain. Patient complains of multiple joint pain to the bilateral hands, ankles, and knees. Patient also complaining of pain in bilateral legs with numbness and tingling. Pain radiates from his bilateral knees to his toes. He notes he was diagnosed with mild arthritis and treated for Gout by boat laborer Dr. Fan Brock. 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 Reginald Delgado MD [address] [facility] [address], [place], [address], [facility] 06/01/2022 14:47:46 2 text/html HypertensionReported by PatientHPIFor duration, patient reportshas noted for years. For alleviating factors, patient reportsmedication. For self care, patient reportsnot under emotional stress,blood pressure goal: <130/90, andusing an arb. For associated symptoms, patient reportsno shortness of breathandno palpitations. HyperlipidemiaReported by PatientHPIFor duration, patient reportschronic. For complications, patient reportscoronary artery disease. For risk factors, patient reportshypertension. For control, patient reportsusually well controlled,improving, andat goal. For adherence to treatment plan, patient reportsfollows recommended diet,exercises, andtakes medications as prescribed. tired all the time, fall asleep with just sitting downsleep apnea in the past, didn't wear like he was supposed to so taken away with insurance bone, joint pain not relieved with multiple treatmentsdryness of mouth and eyes allopurinol didn't make a differencenabumetone has restarted ELLIOT KAPLAN NP [address] [place], [address], [facility] 06/07/2022 08:05:24 2 text/html FatigueReported by PatientHPIFor associated symptoms, patient reportssleep apnea,joint pain,rash,joint pain without inflammation, andexertional fatiguebut reportsno depression,no alcohol consumption,no anxiety,no sleep disturbances,no weight loss,no weight gain, andno chest pain. For quality, patient reportsgeneralized. For severity, patient reportsmoderate. For duration, patient reportschronic. For context, patient reportsno new stressors in life,with exertion, andcardiopulmonary disease.ROS as noted in the HPI 66 yr old male who presents with multiple complaints.Leg pain, seen by pain, increase in gabapentin not helping.Whole body itchiness with random lesions mainly around his ankles, come and go.Ear bleeding, noticed a couple day ago.Continues to be tired all the time. ELLIOT KAPLAN, BETTY [address] [place] [address], [place], [address], [facility] & [place] 08/23/2022 15:44:42 3 text/html ROS as noted in the HPI Mr. Dumont was referred from Dr. Kaplan for chronic joint pain. Patient complains of multiple joint pain to the bilateral hands, ankles, and knees. Patient also complaining of pain in bilateral legs with numbness and tingling. Pain radiates from his bilateral knees to his toes. He notes he was diagnosed with mild arthritis and treated for Gout by boat laborer Dr. Fan Brock. 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 Dumont was referred from Dr. Kaplan for chronic joint pain. Patient complains of multiple joint pain to the bilateral hands, ankles, and knees. Patient also complaining of pain in bilateral legs with numbness and tingling. Pain radiates from his bilateral knees to his toes. He notes he was diagnosed with mild arthritis and treated for Gout by boat laborer Dr. Fan Brock. 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
--- NOTE | 2025-07-01 07:45 | MR_ITS ---
FINAL REPORT TECHNIQUE: Multiplanar MR without contrast CLINICAL HISTORY: low back pain. radiates down bilateral legs. COMPARISON: 12/05/2023 FINDINGS: Sagittal images show normal vertebral height. Anterolisthesis of L5 on S1 is stable. Marrow signal pattern is unremarkable. L1-2: Mild annular disc bulge. Mild facet arthropathy. No central canal stenosis. L2-3: Minimal annular disc bulge. Mild facet arthropathy. Bilateral neuroforaminal narrowing. L3-4: Mild annular disc bulge. Facet overgrowth. Mild bilateral neuroforaminal narrowing is stable. L4-5: Moderate annular disc bulge. Severe facet arthropathy. Mild central canal stenosis. Moderate to severe bilateral neuroforaminal narrowing. L5-S1: Moderate right and mild left facet arthropathy. Minimal annular disc bulge. Severe right and mild left neuroforaminal narrowing. IMPRESSION: Degenerative changes most pronounced in the lower lumbar spine, stable. Reviewed, Interpreted and Dictated by Elizabeth Rivera MD Transcribed by Xochitl Santizo Authenticated and [facility]
== END 2025-07-01 23:59 | disposition home or self-care (01) ==
LOC: RAD 07:41
PROVIDERS: PCP Family Medicine; Visit Provider Family Medicine
DX: M47.26 Other spondylosis with radiculopathy, lumbar region (principal); M47.27 Other spondylosis with radiculopathy, lumbosacral region; M79.605 Pain in left leg; M79.604 Pain in right leg
CPT/HCPCS: 72148

== ENCOUNTER 2025-07-24 08:38 | Outpatient (CLI) | payer MEDICARE, SELFPAY ==
[2025-07-24 19:19] LABS: Uric Acid 11.7 mg/dl (3.5-8.5)
[2025-07-24 20:09] LABS: Hepatitis C Ab Qual. W/ RFX NEGATIVE (Negative)
[2025-07-26 08:16] LABS: RA Latex Turbid. <10.0 IU/mL (<14.0)
[2025-07-26 09:14] LABS: Hepatitis B Surface Antigen Negative (Negative)
== END 2025-07-24 23:59 ==
LOC: LAB.DROPOF 07-26 08:39
PROVIDERS: PCP Family Medicine; Visit Provider Family Medicine
DX: M25.50 Pain in unspecified joint (principal); Z11.59 Encounter for screening for other viral diseases; Z11.4 Encounter for screening for human immunodeficiency virus [HIV]
CPT/HCPCS: 84550; 85651; 86038; 86431; 86803; 87340; 87389

== ENCOUNTER 2025-08-13 08:12 | Day surgery (SDC) | payer MEDICARE, SELFPAY ==
[2025-08-13 08:13] VITALS: BP 111/69; PULSE 66; RESP 16; O2SAT 97; BMI 40.6
[2025-08-13 08:24] VITALS: BP 116/67; PULSE 69; RESP 18; O2SAT 99
[2025-08-13] MEDS: BUPIVACAINE 0.25% 10ML INJ 25 MG IJ (08:24)
[2025-08-13] MEDS: LIDOCAINE 1% 5ML PF VIAL 5 ML (08:24)
[2025-08-13] MEDS: DEXAMETHASONE 10MG/ML 1ML VIAL 10 MG (08:24)
[2025-08-13 08:27] VITALS: BP 116/67; PULSE 69; RESP 18; O2SAT 99
--- NOTE | 2025-08-13 08:39 | EXP.PAIN.PRO ---
Procedure Date: 08/13/25 Time: 08:15 Anesthesiologist:: Eliu Wheatley CRNA Complications:: None Pre-procedure Diagnosis:: Bilateral ankle pain. DJD bilateral ankle. Post-procedure Diagnosis:: Same Indications for Procedure:: Patient is a pleasant 69-year-old male who comes to clinic today for bilateral posterior tibial nerve blocks. He has chronic bilateral ankle pain. He has been told he has arthritis in the bilateral ankle joints. He rates his pain 6/10. Procedure Details:: Details of the procedure explained to the patient. The patient taken procedure room placed in sitting position. The area over the posterior lateral malleus was cleansed using chlorhexidine as a cleansing solution. Using a 25-gauge inch and half needle the left posterior tibial nerve was found and injected with 10 mg of dexamethasone and 3 cc of 1% lidocaine and 3 cc of 0.25% Marcaine. The same procedure was carried out over the right posterior tibial nerve. Patient tolerated procedure without difficulty. No complications. Plan and Disposition:: Patient was discharged without incident.
[2025-08-13 08:53] VITALS: BP 115/77; PULSE 66; RESP 16; O2SAT 96
== END 2025-08-13 08:55 | disposition home or self-care (01) ==
PROVIDERS: PCP Family Medicine; Visit Provider Nurse Anesthetist, Certified Registered
DX: M19.072 Primary osteoarthritis, left ankle and foot (principal); M19.071 Primary osteoarthritis, right ankle and foot; G47.33 Obstructive sleep apnea (adult) (pediatric); I10 Essential (primary) hypertension; M10.9 Gout, unspecified; K21.9 Gastro-esophageal reflux disease without esophagitis; Z86.718 Personal history of other venous thrombosis and embolism; Z79.82 Long term (current) use of aspirin; Z79.899 Other long term (current) drug therapy; Z88.6 Allergy status to analgesic agent; Z88.8 Allergy status to other drugs, medicaments and biological substances
CPT/HCPCS: 64450; J0665; J1100; J2003